=== PATIENT | male | born 1960 | race Caucasian/White ===

== ENCOUNTER 2023-01-18 16:28 | Inpatient (IN) | payer MEDICARE, MEDICAID, SELFPAY ==
--- NOTE | ~2023-01-18 | US_ITS ---
Testicular ultrasound with doppler. Indication: Edema, pain. Technique: Real-time sonography the scrotum was performed. Color flow Doppler and Doppler spectral an alysis were performed. Findings: The testes are homogeneous in echotexture bilaterally. There is no evidence of an intrates ticular mass. The right testis measures 4.2 x 4.3 x 2.7 cm and the left 3.2 x 4.0 x 2.2 cm. There is color-flow seen to both testes. Arterial and venous spectral waveforms are seen in both testes. There is no sonographic evidence of torsion. There is probable hypervascularity of the right epididymis as compared to the left. Small right hydrocele present. Mild diffuse scrotal wall edema present. Impression: Possible right epididymitis. Mild diffuse scrotal wall edema, nonspecific. Small right hydrocele. No testicular mass or torsion. Reviewed, dictated and finalized at [facility]. Impression: Possible right epididymitis. Mild diffuse scrotal wall edema, nonspecific. Small right hydrocele. No testicular mass or torsion.
--- NOTE | 2023-01-18 16:53 | ADMGEN ---
This patient, Sebastian Carrillo, was admitted to Medical Room 251-01. Patient/family oriented to hospital policies and general routines including ID bracelet, bed and alarms, visiting hours, pain management, procedures, bathroom and other care routines, personal items, smoking policy, room service/diet, and visiting hours. Information on how to activate the Rapid Response Team has been discussed. Patient/Family are encouraged to report perceived risks to care and to ask questions if they do not understand what they are told or what they should do.
[2023-01-18 16:57] VITALS: BP 127/76; PULSE 102; RESP 16; TEMP 36.5; O2SAT 97
--- NOTE | 2023-01-18 18:02 | PM.IMHP ---
H&P: HPI History of Present Illness Date/Time: 01/18/23 18:02 Chief Complaint: Scrotal pain Narrative: This is a 62-year-old male patient who presented to [facility] with evaluation of right growing, lower abdominal and testicular pain that occurred since this past Wednesday. The patient had been lifting a writing more onto a trailer was some force when he noticed that he had pain in his scrotum. The patient stated that he had lifted this lot more many times and never had any problems. The patient had been putting ice on it and heat without much relief. He stated that the right testicle became engorged and firm. The patient does have a history of a PE and DVTs with an IVC filter. He has a history of osler- Wood - rendu, he sees Dr. Del Valle for this. 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 He had and testicular ultrasound agreed for hospice it was read as a small simple hydroceles are present bilaterally. He had a CT abdomen and pelvis finding suggest orchitis and or cellulitis involving the right testis is and scrotum there is no evidence of hernia. He was seen by Dr. Dwyer in [facility]. His lactic acid was 0.7. His white count was noted to be 14.31 H&H is 11.2 and 34.7. Protime 15.1 urinalysis was negative. Patient's EKG at [facility] was read as atrial fibrillation. With controlled rate. He has no prior history of atrial fibrillation. His nurse consultant is Dr. Reed at [facility]. The patient was started on Levaquin agree the hospital he was given Isovue, and morphine. CT of the abdomen and pelvis was performed and the disc is on the front of the chart. The patient is a direct admit from [facility] he is being admitted to observation status on the date of service of 01/18/2023. Review of Systems Review of Systems: All systems reviewed & are unremarkable except as noted in HPI and below Constitutional: Constitutional: Reports as per HPI and Reports no additional constitutional complaints Eyes: Eyes: Reports as per HPI and Reports no additional eye complaints ENT: Reports system reviewed and no additional complaints, except as documented and Reports Normal hearing present Cardiovascular: Cardiovascular: Reports no additional cardiovascular complaints Respiratory: Respiratory: Reports no additional respiratory complaints and Reports no additional respiratory complaints Gastrointestinal: Gastrointestinal: Reports as per HPI and Reports no additional gastrointestinal complaints Musculoskeletal: Musculoskeletal: Reports no additional musculoskeletal complaints Integumentary/Breasts: Skin/Breast: Reports system reviewed and no additional complaints, except as docu and Reports as per HPI Neurologic: Reports system reviewed and no additional complaints, except as documented, Reports as per HPI and Reports Normal hearing present Psychiatric: Psychiatric: Reports no additional psychiatric complaints and Reports as per HPI Endocrine: Endocrine: Reports no additional endocrine complaints Hematologic/Lymphatic: Hematologic/Lymphatic: Reports no additional hematologic/lymphatic complaints Allergic/Immunologic: Allergic/Immunologic: Reports no additional allergic/immunologic complaints [facility] Past Medical History Medical History (Updated 01/18/23 @ 18:32 by Trinity Adames NP) Anemia Anxiety disorder Aortic aneurysm BPH (benign prostatic hyperplasia) CAD (coronary artery disease) Chronic abdominal pain Chronic cystitis with hematuria Chronic GERD COPD (chronic obstructive pulmonary disease) DVT (deep venous thrombosis) Hereditary hemorrhagic telangiectasia History of blood transfusion History of pulmonary embolism Hyperlipidemia Hypertension Migraine Pulmonary artery hypertension Surgical History Surgical History (Updated 01/18/23 @ 18:32 by Trinity Adames NP) H/O colonoscopy H/O of nasal cauterization H/O sinus surgery X3 History of cardiac catheterizatio
[2023-01-18 18:05] VITALS: BMI 21.7
[2023-01-18 19:28] LABS: Estimated CRCL calculation 78 ml/min; Estimated Glomerular Filt Rate > 60
[2023-01-18] MEDS: ceFAZolin 1 GM/NS 50 ML 1 GM/50 ML BAG IVPB (19:36)
[2023-01-18 19:42] LABS: Appearance Urine Clear (Clear); Bacteria Urine None Seen /hpf; Bilirubin Urine Negative (Negative); Blood Urine Negative (Negative); Color Urine Yellow (Yellow); Glucose Urine UA Negative (Negative); Ketones Urine Negative (Negative); Leukocyte Esterase Ur Trace LEU/UL (Negative); Nitrate Urine Negative (Negative); Non Pathogenic Casts 0-2; Protein Urine Negative (Negative); RBC Urine 0-2 /hpf (0-2); Squamous Epithelial Cell Urine None seen /hpf (Few)
[2023-01-18 19:47] LABS: Add Urine Microscopic? YES; Specific Grav Ur 1.055 (1.001-1.035)
[2023-01-18 20:00] VITALS: BP 121/80; PULSE 105; PULSE 93; RESP 18; TEMP 36.4; O2SAT 99
[2023-01-18] MEDS: GABAPENTIN 300 MG CAPSULE 600 MG PO (20:13)
[2023-01-18] MEDS: LACTULOSE 20 GM/30 ML UDC 15 GM PO (20:14)
[2023-01-18] MEDS: PANTOPRAZOLE SODIUM IV 40 MG VIAL IV PUSH (20:14)
[2023-01-18] MEDS: MORPHINE SULFATE (*CRX) 60 MG TABCR PO (20:57)
[2023-01-18 23:17] VITALS: BP 108/76; PULSE 93; RESP 17; TEMP 37; O2SAT 95
[2023-01-19] VITALS (24 sets, daily range): BP systolic 93–114; BP diastolic 61–80; PULSE 84–152; RESP 16–20; TEMP 36.9–38.4; O2SAT 92–98
--- NOTE | 2023-01-19 | ECHO_ITS ---
Patient Info Name: Sebastian Carrillo Age: 62 years : 1960 Gender: Male Ht: 72 in Wt: 160 lbs BSA: 1.92 m2 HR: 97 bpm BP: 114 / 77 mmHg Heart Rhythm: Atrial Fibrillation Exam Date: 01/19/2023 12:31 PM Exam Location: [facility] Pulmonary Patient Status: Outpatient Admit Date: 01/18/2023 Staff Ordering Physician: Trinity Adames NP Passenger Vessel Chef: Ernesto Mcduffie RDCS, RT Attending Provider: Kimberly Esquivel MD Referring Physician: Zacarias BARKLEY; Exam Type: CA echo doppler color flow Study Info Indications I48.1 - Persistent atrial fibrillation Complete two-dimensional, color flow and Doppler transthoracic echocardiogram is performed. Strain analysis performed. Summary 1. Complete two-dimensional, color flow and Doppler transthoracic echocardiogram is performed. 2. Left ventricular chamber dimension is normal. 3. Left ventricular systolic function is normal, estimated at 50-55%. 4. There is mildly increased left ventricular wall thickness. 5. Right ventricular systolic function is normal. 6. Left atrial chamber dimension is mildly enlarged. 7. Right atrial chamber dimension is mildly enlarged. 8. There is mild mitral valve regurgitation. 9. There is mild tricuspid valve regurgitation. Left Ventricle Left ventricular chamber dimension is normal. Left ventricular systolic function is normal, estimated at 50-55%. There is mildly increased left ventricular wall thickness. Global longitudinal strain is abnormal at -13 %. Right Ventricle Right ventricular chamber dimension is normal. Right ventricular systolic function is normal. Left Atria Left atrial chamber dimension is mildly enlarged. Right Atria Right atrial chamber dimension is mildly enlarged. Atrial Septum Intact interatrial septum visualized by color flow imaging. Aortic Valve The aortic valve is not well visualized. There is no aortic valve stenosis. There is no aortic valve regurgitation. Pulmonic Valve The pulmonic valve is not well visualized. Mitral Valve There is mild mitral valve regurgitation. Tricuspid Valve There is mild tricuspid valve regurgitation. Pericardium/Pleural There is no pericardial effusion. Inferior Vena Cava Dilated inferior vena cava with <50% collapse upon inspiration consistent with elevated right atrial pressure, 15 mmHg. Aorta The aortic root size at the sinus of Valsalva is normal. Left Ventricular Outflow Tract Name Value Normal LVOT 2D LVOT Diameter 2.1 cm LVOT Doppler LVOT Peak Gradient 4 mmHg LVOT Mean Gradient 2 mmHg LVOT VTI 16 cm LVOT VTI/AV VTI Ratio 0.9 LVOT Stroke Volume 55 ml LVOT CO 5.5 l/min LVOT CI 2.9 l/min/m2 Mitral Valve Name Value Normal MV Doppler ---
[2023-01-19] MEDS: ceFAZolin 1 GM/NS 50 ML 1 GM/50 ML BAG IVPB ×2 (02:03→11:37)
[2023-01-19] MEDS: MORPHINE SULFATE (*CRX) 60 MG TABCR PO ×3 (05:25→21:37)
[2023-01-19 05:29] LABS: Basophils Percent Auto 0.4 % (0.2-1.2); Eosinophils Percent Auto 0.3 % (0-4.4); Hemoglobin 9.7 g/dL (14.0-18.0); Immature Granulocyte Absolute 0.03 K/mm3 (0.00-0.031); Immature Granulocyte Percent A 0.4 % (0-0.5); Lymphocytes Percent Auto 12.9 % (18.3-44.2); Mean Corpuscular HGB Conc 33.4 g/dl (32-36); Mean Corpuscular Hemoglobin 30.9 pg (26-34); Mean Corpuscular Volume 92.4 fl (80-100); Mean Platelet Volume 9.6 fl (7.4-10.4); Monocytes Absolute Auto 0.7 K/mm3 (0.1-0.6); Monocytes Percent Auto 10.3 % (2.6-8.5); Neutrophils Absolute Auto 5.3 K/mm3 (1.3-6.7); Neutrophils Percent Auto 75.7 % (45.5-73.1); Platelet Count Result 183 k/mm3 (150-375); Red Blood Count 3.14 M/mm3 (4.6-6.20); Red Cell Distribution Width 14.5 % (11.5-14.5)
[2023-01-19 05:33] LABS: Lactic Acid Reflex 0.6 mmol/L (0.7-2.0)
[2023-01-19 05:35] LABS: Alanine Aminotransferase 13 U/L (6-50); Albumin Level 3.3 g/dL (3.5-5.1); Alkaline Phosphatase 84 U/L (38-126); Anion Gap 3 mmol/L (8-16); Aspartate Amino Transferase 23 U/L (17-59); Bilirubin,Total 0.7 mg/dL (0.2-1.3); Blood Urea Nitrogen 9 mg/dL (9-20); Calcium 8.3 mg/dL (8.4-10.2); Carbon Dioxide 30 mmol/L (22-30); Chloride 97 mmol/L (98-107); Estimated CRCL calculation 78 ml/min; Estimated Glomerular Filt Rate > 60; Glucose 109 mg/dL (65-110); Lactate Dehydrogenase 126 U/L (120-246); Magnesium 1.7 mg/dL (1.6-2.3); Potassium 3.8 mmol/L (3.4-5.0); Sodium 130 mmol/L (137-145)
[2023-01-19] MEDS: METOPROLOL TARTRATE 25 MG TABLET PO (07:34)
[2023-01-19] MEDS: TAMSULOSIN HCL 0.4 MG CAPSULE PO (07:37)
[2023-01-19] MEDS: PARoxetine 20 MG TABLET PO (07:37)
[2023-01-19] MEDS: FINASTERIDE 5 MG TABLET PO (07:38)
[2023-01-19] MEDS: ATORVASTATIN 20 MG TABLET PO (07:38)
[2023-01-19] MEDS: FERROUS GLUCONATE 324 MG TABLET PO (07:38)
[2023-01-19] MEDS: ISOSORBIDE MONONITRATE 60 MG TAB.ER.24H PO (07:38)
[2023-01-19] MEDS: PANTOPRAZOLE SODIUM IV 40 MG VIAL IV PUSH ×2 (07:39→20:29)
[2023-01-19] MEDS: MAGNESIUM SULF 2 GM/WATER 50ML 2 GM/50 ML BAG IVPB (07:49)
[2023-01-19] MEDS: HYDROmorphone HCL INJ (*CRX) 1 MG/ML SYR 0.5 MG IV PUSH (07:57)
[2023-01-19] MEDS: LEVALBUTEROL NEB 1.25 MG/3 ML 0.63 MG INHALATION ×3 (08:54→19:20)
--- NOTE | 2023-01-19 09:37 | ECG_ITS ---
Measurements Intervals [place] Rate: 91 P: KS: 0 QRS: 66 QRSD: 81 T: 33 QT: 336 QTc: 414 Interpretive Statements ATRIAL FIBRILLATION NONSPECIFIC T-WAVE ABNORMALITY ABNORMAL RHYTHM ECG NO PREVIOUS ECG AVAILABLE FOR COMPARISON Electronically Signed On 01-19-2023 18:00:01 CDT by Jin Dwyer M.D.
--- NOTE | 2023-01-19 12:47 | PM.CNCAR ---
Assessment and Plan Assessment and plan (1) Atrial fibrillation: Code(s): I48.91 - Unspecified atrial fibrillation Status: Acute Assessment and Plan: New diagnosis for the patient. Overall, rate controlled for the most part, occasional RVR. Will increase dose of beta bi to optimize rate control. [id number] of 2. Has not been started on therapeutic anticoagulation due to bleeding issues with his HHT, which I agree with. Recommend outpatient follow up with his Block Trader. (2) CAD (coronary artery disease): Code(s): I25.10 - Atherosclerotic heart disease of [place] coronary artery without angina pectoris Status: Acute Assessment and Plan: Stable. Continue with his home regimen. 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 Has not been started on therapeutic anticoagulation for stroke prophylaxis for atrial fibrillation due to bleeding issues with his HHT, which I agree with. Hematology has been consulted. History of Present Illness History of Present Illness Consult date/time: 01/19/23 12:47 Requesting physician: Trinity Adames NP Consult reason: atrial fibrillation Reason For Visit: Scrotal Cellulitis Narrative: We are consulted for atrial fibrillation. This is a 62-year-old male with a history of coronary artery disease, history of DVT/PE, COPD, hereditary hemorrhagic telangiectasia, hypertension, hyperlipidemia who presented with right groin, lower abdominal and testicular pain. Initially presented to [facility] and then transferred over here. CT showed possible orchitis and or cellulitis involving the right testis. Noted to be in atrial fibrillation at [place]. Scrotal ultrasound here shows possible right epididymitis and mild diffuse scrotal wall edema. Patient states he has not had a diagnosis of atrial fibrillation before. He is currently without any cardiac symptoms. Sees [facility] Cardiology at [place]. Review of Systems Review of Systems: All systems reviewed & are unremarkable except as noted in HPI and below (HPI) [facility] Past Medical History Medical History Anemia Anxiety disorder Aortic aneurysm BPH (benign prostatic hyperplasia) CAD (coronary artery disease) Chronic abdominal pain Chronic cystitis with hematuria Chronic GERD COPD (chronic obstructive pulmonary disease) DVT (deep venous thrombosis) Hereditary hemorrhagic telangiectasia History of blood transfusion History of pulmonary embolism Hyperlipidemia Hypertension Migraine Pulmonary artery hypertension Surgical History Surgical History H/O colonoscopy H/O of nasal cauterization H/O sinus surgery X3 History of cardiac catheterization X4 S/P IVC filter Family History Family History Mother Cancer Son Hereditary hemorrhagic telangiectasia Social History Social History Social History: The patient continues to smoke a half a pack a cigarettes a day. 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 Between him and his they have 7 children of which 3 are biological to him. Code status full code Smoking packs per day: 0.5 Smoking cigarettes per day: 10.0 Smoking status: Current every day smoker Tobacco type: cigarettes Alcohol intake: never Substance use: current Substance use type: marijuana and other Other substance usage details: Medical cannabis Lack of Transportation: No Lack of Food: Never True Current Housing: I Have Housing Concerned About Future Housing: No Difficulty Paying Gas/Electr
--- NOTE | 2023-01-19 12:48 | PDONCCN ---
HPI - Date of Consult Date/Time: 01/19/23 12:48 Requesting Physician: Kimberly Esquivel MD Primary Care Provider: UNKNOWN,DOCTOR - Consult Narrative Reason for consult: Hereditary hemorrhagic telangiectasia Narrative: Sebastian Carrillo is a 62 year old male with history of hemorrhagic telangiectasia managed by along with history of coronary artery disease, GERD, COPD, history of DVT status post IVC filter placement came into the hospital with lower abdominal and testicular pain started after lifting riding lawnmower into the trailer. CT abdomen showed finding of orchitis and cellulitis involving the right testis with no evidence of hernia. 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 He is currently not on any blood thinner. He is take 1 iron 325 mg once a day for recurrent AVM. His last colonoscopy was done by Dr. Trujillo was more than 5 years ago. He denies any melena hematochezia. He denies any chest pain and shortness of breath. Labs showed hemoglobin of 9.7. Scrotal ultrasound was performed that showed possible right epididymitis and small right hydrocele with no testicular mass or torsion. Review of Systems - Review of Systems All systems reviewed & are unremarkable except as noted in HPI and bel - Neurologic Reports system reviewed and no additional complaints, except as documented, Reports hearing normal [facility] Medical History: Medical History (Last Updated 01/18/23 @ 18:32 by Trinity Adames NP) Anemia Anxiety disorder Aortic aneurysm BPH (benign prostatic hyperplasia) CAD (coronary artery disease) Chronic abdominal pain Chronic cystitis with hematuria Chronic GERD COPD (chronic obstructive pulmonary disease) DVT (deep venous thrombosis) Hereditary hemorrhagic telangiectasia History of blood transfusion History of pulmonary embolism Hyperlipidemia Hypertension Migraine Pulmonary artery hypertension Surgical History: Surgical History (Last Updated 01/18/23 @ 18:32 by Trinity Adames NP) H/O colonoscopy H/O of nasal cauterization H/O sinus surgery X3 History of cardiac catheterization X4 S/P IVC filter Family History: Family History (Last Updated 01/18/23 @ 18:34 by Trinity Adames NP) Mother Cancer Son Hereditary hemorrhagic telangiectasia - Social History Social History: Social History (Last Updated 01/18/23 @ 18:35 by Trinity A. Benhoff, ROOF TRUSS MACHINE TENDER) Alcohol Use: Alcohol intake: never Substance Use: Substance use: current Substance use type: marijuana Substance use type: other Other substance usage details: Medical cannabis Others: Spiritual care concerns: No Smoking Status: Smoking status: Current every day smoker Tobacco type: cigarettes Smoking Pack-years: Smoking packs per day: 0.5 Smoking cigarettes per day: 10.0 Social Determinants of Health: Has the Lack of Transportation Kept You From Medical Appointments or From Getting Medications?: No Within the Past 12 Months, Were You Worried Whether Your Food Would Run Out Before You Got Money to Buy More?: Never True What is Your Housing Situation Today?: I Have Housing Are You Worried That in the Next 2 Months, You May Not Have Your Own Housing to Live In?: No Do You Have Trouble Paying Your Heating Or Electricity Bill?: No Do You Have Trouble Paying For Medicines?: No Are You Currently Unemployed and Looking for Work?: No Highest Level of Education Completed: Don't Know Do You Have Trouble With Childcare or the Care of a Family Member?: No Exam - Vital Signs Vital Signs - 24 hr 01/18/23 16:57 01/18/23 18:38 01/18/23 20:00 Temperature 36.5 C 36.4 C Pulse Rate 102 H 93 Respiratory Rate 16 18 Blood Pressure 127/76 121/80 Pulse Oximetry 97 99 Oxygen Delivery Room Air 01/18/23 20:00 01/18/23 23:17 01/18/23 20:00 Temperature 37.0 C Pulse Rate 93 105 H
--- NOTE | 2023-01-19 12:49 | PM.IMPN ---
Progress Note: A&P Assessment and Plan (1) Epididymitis: Code(s): N45.1 - Epididymitis Status: Acute Assessment and Plan: Patient noticed swelling of his scrotum on on 01/15/2023 and he developed pain in the scrotum the next day. He was a direct admit from [facility]. CT abdomen and pelvis finding suggest orchitis and or cellulitis involving the right testis is and scrotum there is no evidence of hernia. Cellulitis of the right scrotum Urology has been consulted Given Levaquin at [facility] Discussed case with ID pharmacist and he recommended to ceftriaxone and vancomycin. Can possibly deescalate antibiotics after seen by Urology. ID pharmacist believes vancomycin can be dropped off of medication list soon. Blood cultures are pending White blood cell count at [facility] was 14 but his white count here is within normal range. (2) Atrial fibrillation: Code(s): I48.91 - Unspecified atrial fibrillation Status: Acute Assessment and Plan: This is a new onset and he is rate controlled. No anticoagulation is ordered due to his hereditary hemorrhagic telangiectasia He is on metoprolol echo was ordered. Being monitor on telemetry (3) COPD (chronic obstructive pulmonary disease): Code(s): J44.9 - Chronic obstructive pulmonary disease, unspecified Status: Acute Assessment and Plan: Xopenex. The patient has albuterol at home but there is currently a shortage. He was encouraged to stop smoking. He was given smoking cessation information. Not in active exacerbation (4) Anemia: Code(s): D64.9 - Anemia, unspecified Status: Acute Assessment and Plan: The patient had a CT of the abdomen and pelvis at [facility]. The patient does have a somewhat mottled appearance which is unchanged from previous and consistent with patient's history of hereditary hemorrhagic telangiectasia. Alternatively orchitis and cellulitis could yield in appearance such as this. Continue to monitor H&H. Continue with ferrous sulfate Oncology consulted b12 was low at 289. Started on supplementation. (5) CAD (coronary artery disease): Code(s): I25.10 - Atherosclerotic heart disease of [place] coronary artery without angina pectoris Status: Acute Assessment and Plan: The patient stated that he has had 4 cardiac caths but has not had any stents. Continue with atorvastatin, isosorbide, metoprolol The patient has a history of DVT and PE and has an IVC filter. (6) Aortic aneurysm: Code(s): I71.9 - Aortic aneurysm of unspecified site, without rupture Status: Acute Assessment and Plan: The patient has a thoracic surgeon who is monitoring this outpatient. Patient states his aneurysm is 4.2 cm (7) Hereditary hemorrhagic telangiectasia: Code(s): I78.0 - Hereditary hemorrhagic telangiectasia Status: Acute Assessment and Plan: And patient sees Dr. fried and he has been consulted. (8) Chronic abdominal pain: Code(s): R10.9 - Unspecified abdominal pain; G89.29 - Other chronic pain Status: Acute Assessment and Plan: Continue with routine morphine and p.r.n. Dilaudid. The patient takes hydromorphone at home but no interval is noted. I then ordered p.r.n. Dilaudid here. (9) Hypertension: Code(s): I10 - Essential (primary) hypertension Status: Acute Assessment and Plan: Continue with metoprolol (10) Pulmonary artery hypertension: Code(s): I27.21 - Secondary pulmonary arterial hypertension Status: Acute Assessment and Plan: echo is being ordered Subjective Date/time seen: 01/19/23 12:49 Interval history: Patient sitting comfortably in bed. Patient's scrotal pain has improved slightly since arrival to [place]. He states that the swelling is starting to decrease. Gracie
[2023-01-19 13:32] LABS: Iron 11 ug/dL (49-181)
[2023-01-19 13:42] LABS: Percent Iron Saturation 4 % (20-50)
[2023-01-19 14:40] LABS: Folic Acid 18.2 ng/mL (2.76->20)
--- NOTE | 2023-01-19 15:38 | WPDURCON ---
Assessment and Plan Assessment and plan (1) BPH (benign prostatic hyperplasia): Code(s): N40.0 - Benign prostatic hyperplasia without lower urinary tract symptoms Status: Acute (2) Epididymitis, right: Code(s): N45.1 - Epididymitis Status: Acute Assessment and Plan: Continue IV antibiotics. Apply scrotal Support. Apply Ice to affected area in 20 minute intervals. Patient to f/u with Urology in 3-4 weeks. He understands this will take weeks to resolve. Ok to take NSAIDS. Urology Consult Note HPI Date Seen: 01/19/23 Time Seen: 11:00 Requesting Physician: Kimberly Esquivel MD Primary Care Provider: UNKNOWN,DOCTOR Consult Narrative Reason for consult: right scrotal edema/pain Narrative: Sebastian Carrillo is a 62 year old male who presented to [facility] ER initially on 01/18 and was evaluated for acute onset and worsening of right sided scrotal pain and edema that radiated to the RLQ. He denies fever, dysuria, frequency, urgency or bruising of the scrotum. 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 He didn't injure himself. He had a CT scan at [place] and an US today of the scrotum which shows Possible right epididymitis. Mild diffuse scrotal wall edema, nonspecific.Small right hydrocele.No testicular mass or torsion. WBC is 7.0, creatinine is 0.90, UA is negative although urine and blood cultures are pending. WBC was 14.31 at [facility] yesterday. He states the pain is improved today and swelling as well. Review of Systems Cardiovascular: Cardiovascular: Denies chest pain Respiratory: Respiratory: Reports no additional respiratory complaints Gastrointestinal: Gastrointestinal: Denies abdominal pain Genitourinary: Genitourinary: Denies hematuria, Reports genital pain, Denies dysuria, Denies flank pain, Reports scrotal swelling, Denies urinary frequency, Denies urinary hesitancy, Denies urinary incontinence and Denies urinary urgency [facility] Past Medical History Medical History Anemia Anxiety disorder Aortic aneurysm BPH (benign prostatic hyperplasia) CAD (coronary artery disease) Chronic abdominal pain Chronic cystitis with hematuria Chronic GERD COPD (chronic obstructive pulmonary disease) DVT (deep venous thrombosis) Hereditary hemorrhagic telangiectasia History of blood transfusion History of pulmonary embolism Hyperlipidemia Hypertension Migraine Pulmonary artery hypertension Surgical History Surgical History H/O colonoscopy H/O of nasal cauterization H/O sinus surgery X3 History of cardiac catheterization X4 S/P IVC filter Family History Family History Mother Cancer Son Hereditary hemorrhagic telangiectasia Social History Social History Social History: The patient continues to smoke a half a pack a cigarettes a day. 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 Between him and his they have 7 children of which 3 are biological to him. Code status full code Smoking packs per day: 0.5 Smoking cigarettes per day: 10.0 Smoking status: Current every day smoker Tobacco type: cigarettes Alcohol intake: never Substance use: current Substance use type: marijuana and other Other substance usage details: Medical cannabis Lack of Transportation: No Lack of Food: Never True Current Housing: I Have Housing Concerned About Future Housing: No Difficulty Paying Gas/Electric Bills: No Difficulty Paying for Meds: No Currently Unemployed: No Education: Don't Know Difficulty w/ Childcare or Family Care: No Spiritual
[2023-01-19] MEDS: METOPROLOL TARTRATE 50 MG TAB PO (20:12)
[2023-01-19] MEDS: ACETAMINOPHEN 500 MG TABLET 1000 MG PO (20:25)
[2023-01-19] MEDS: GABAPENTIN 300 MG CAPSULE 600 MG PO (20:28)
[2023-01-19] MEDS: FLUTICASONE PROPIONATE 0.05% NA SPR 16 GM BTL (*BKC) 1 SPRAY NASAL (20:28)
[2023-01-20] VITALS (14 sets, daily range): BP systolic 90–122; BP diastolic 54–88; PULSE 77–110; RESP 16–18; TEMP 36.4–36.9; O2SAT 93–97
[2023-01-20 05:38] LABS: Alanine Aminotransferase 14 U/L (6-50); Albumin Level 3.3 g/dL (3.5-5.1); Alkaline Phosphatase 84 U/L (38-126); Anion Gap 2 mmol/L (8-16); Aspartate Amino Transferase 23 U/L (17-59); Bilirubin,Total 0.5 mg/dL (0.2-1.3); Blood Urea Nitrogen 8 mg/dL (9-20); Calcium 8.6 mg/dL (8.4-10.2); Carbon Dioxide 34 mmol/L (22-30); Chloride 100 mmol/L (98-107); Estimated CRCL calculation 78 ml/min; Estimated Glomerular Filt Rate > 60; Glucose 117 mg/dL (65-110); Potassium 4.1 mmol/L (3.4-5.0); Sodium 136 mmol/L (137-145)
[2023-01-20 05:43] LABS: Basophils Percent Auto 0.5 % (0.2-1.2); Eosinophils Percent Auto 0.8 % (0-4.4); Hematocrit 30.9 % (42.0-52.0); Hemoglobin 10.2 g/dL (14.0-18.0); Immature Granulocyte Absolute 0.02 K/mm3 (0.00-0.031); Immature Granulocyte Percent A 0.5 % (0-0.5); Lymphocytes Percent Auto 15.6 % (18.3-44.2); Mean Corpuscular Hemoglobin 30.7 pg (26-34); Mean Corpuscular Volume 93.1 fl (80-100); Mean Platelet Volume 10.1 fl (7.4-10.4); Monocytes Absolute Auto 0.4 K/mm3 (0.1-0.6); Monocytes Percent Auto 10.9 % (2.6-8.5); Neutrophils Absolute Auto 2.8 K/mm3 (1.3-6.7); Neutrophils Percent Auto 71.7 % (45.5-73.1); Platelet Count Result 203 k/mm3 (150-375); Red Blood Count 3.32 M/mm3 (4.6-6.20); Red Cell Distribution Width 14.3 % (11.5-14.5); White Blood Count 3.9 K/mm3 (4.5-10.0)
[2023-01-20] MEDS: MORPHINE SULFATE (*CRX) 60 MG TABCR PO ×2 (06:11→14:23)
[2023-01-20] MEDS: LEVALBUTEROL NEB 1.25 MG/3 ML 0.63 MG INHALATION ×2 (08:03→13:37)
[2023-01-20] MEDS: HYDROmorphone HCL INJ (*CRX) 1 MG/ML SYR 0.5 MG IV PUSH (08:27)
[2023-01-20] MEDS: PANTOPRAZOLE SODIUM IV 40 MG VIAL IV PUSH (08:28)
[2023-01-20] MEDS: ISOSORBIDE MONONITRATE 60 MG TAB.ER.24H PO (08:28)
[2023-01-20] MEDS: TAMSULOSIN HCL 0.4 MG CAPSULE PO (08:28)
[2023-01-20] MEDS: FERROUS GLUCONATE 324 MG TABLET PO (08:28)
[2023-01-20] MEDS: METOPROLOL TARTRATE 50 MG TAB PO (08:28)
[2023-01-20] MEDS: ATORVASTATIN 20 MG TABLET PO (08:28)
[2023-01-20] MEDS: PARoxetine 20 MG TABLET PO (08:28)
[2023-01-20] MEDS: FINASTERIDE 5 MG TABLET PO (08:28)
[2023-01-20] MEDS: FLUTICASONE PROPIONATE 0.05% NA SPR 16 GM BTL (*BKC) 1 SPRAY NASAL (08:29)
[2023-01-20] MEDS: CYANOCOBALAMIN 1,000 MCG TABLET 1000 MCG PO (08:33)
--- NOTE | 2023-01-20 12:43 | PM.PNCARD ---
Progress Note: A&P Assessment and Plan (1) Atrial fibrillation with RVR: Code(s): I48.91 - Unspecified atrial fibrillation Status: Acute Assessment and Plan: New diagnosis for the patient. Overall, rate controlled for the most part, occasional RVR. Will increase dose of beta bi to optimize rate control. Metoprolol now increased to 100mg BID. [id number] of 2. Has not been started on therapeutic anticoagulation due to bleeding issues with his HHT, which I agree with. Echocardiogram this admission shows LVEF 50-55%, no significant valvular disease. Recommend outpatient follow up with his [facility]. (2) CAD (coronary artery disease): Code(s): I25.10 - Atherosclerotic heart disease of [place] coronary artery without angina pectoris Status: Acute Assessment and Plan: Stable. Continue with his home regimen. 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 Has not been started on therapeutic anticoagulation for stroke prophylaxis for atrial fibrillation due to bleeding issues with his HHT, which I agree with. Hematology has been consulted. Subjective Date/time seen: 01/20/23 12:43 Interval history: Reason for visit: Atrial fibrillation with RVR HPI: This is a 62-year-old male with a history of coronary artery disease, history of DVT/PE, COPD, hereditary hemorrhagic telangiectasia, hypertension, hyperlipidemia who presented with right groin, lower abdominal and testicular pain. Initially presented to [facility] and then transferred over here. CT showed possible orchitis and or cellulitis involving the right testis. Noted to be in atrial fibrillation at [place]. Scrotal ultrasound here shows possible right epididymitis and mild diffuse scrotal wall edema. Patient states he has not had a diagnosis of atrial fibrillation before. He is currently without any cardiac symptoms. Sees [facility] Cardiology at [place]. Date of service 01/20: Had some RVR overnight when febrile. No symptoms at that time. Heart rate overall has been controlled. Feeling well this morning. No cardiac symptoms. Review of Systems Review of Systems: All systems reviewed & are unremarkable except as noted in HPI and below (HPI) Exam Const: General: comfortable and no acute distress HENMT: Mouth: Yes moist mucous membranes Eyes: General: appearance normal, both eyes and all related structures Sclera: sclerae normal Neck: Neck: supple Resp: Effort & Inspection: normal respiratory effort Auscultation: clear to auscultation bilaterally Cardio: Rhythm: abnormal rhythm irregularly irregular GI: GI Palp: Yes Soft to palpation and No Tenderness to palpation present (GI) Skin: General skin exam: normal color Neuro: Speech: normal speech Extrem: General: normal to inspection Psych: Mental Status: mental status grossly normal Affect: normal affect Objective Data Vital Signs Vital Signs: Vital Signs - 24 hr 01/19/23 13:35 01/19/23 13:42 01/19/23 14:32 Temperature 37.2 C Pulse Rate 99 98 84 Respiratory Rate 20 18 Blood Pressure 114/71 Pulse Oximetry 97 Oxygen Delivery 01/19/23 18:00 01/19/23 16:00 01/19/23 19:21 Temperature 36.9 C Pulse Rate 90 97 95 Respiratory Rate 18 18 Blood Pressure 110/80 Pulse Oximetry 98 Oxygen Delivery 01/19/23 19:48 01/19/23 20:09 01/19/23 20:12 Temperature 38.4 C H Pulse Rate 92 152 H 146 H Respiratory Rate 18 16 Blood Pressure 107/67 Pulse Oximetry 94 Oxygen Delivery 01/19/23 20:21 01/19/23 20:25 01/19/23 22:04 Temperature 38.4 C H 38.4 C H 37.2 C Pulse Rate 152 H Respiratory Rate 16 16 Blood Pressure 107/67 93/61 L Pulse Oximetry 94 97 Oxygen Delivery Room Air 01/19/23 21:25 01/20/23 01:17 01/19/23 20:00 Temperature 37.2 C 36.8 C Pulse Rate 100
--- NOTE | 2023-01-20 16:42 | P.DS_ITS ---
DS: Admitting Diagnosis Discharge Date 01/20/2023 Admitting Diagnosis Epididymitis atrial fibrillation Chronic obstructive pulmonary disease, unspecified Gastro-esophageal reflux disease without esophagitis Anemia, unspecified Atherosclerotic heart disease of [place] coronary artery without angina pectoris Aortic aneurysm of unspecified site, without rupture Hereditary hemorrhagic telangiectasia Migraine, unspecified, not intractable, without status migrainosus Hyperlipidemia Anxiety disorder Chronic abdominal pain Essential (primary) hypertension Pulmonary artery hypertension DS: Discharge Diagnosis Discharge Diagnosis (1) Epididymitis: Code(s): N45.1 - Epididymitis Status: Acute Assessment and Plan: Patient noticed swelling of his scrotum on on 01/15/2023 and developed pain in the scrotum the next day. He was a direct admit from [facility]. * CT abdomen and pelvis finding suggest orchitis and or cellulitis involving the right testis is and scrotum there is no evidence of hernia. * Urology consulted * Given Levaquin IV at [facility] * Case discussed with ID pharmacist who recommended ceftriaxone and vancomycin 01/18-01/20/23. Levaquin avoided due to AAA. * Blood cultures negative x2 * Urine culture without growth * White blood cell count at [facility] was 14 but his white count on admission was within normal range. * Ice, scrotal support and PO analgesics. * Transitioned to bactrim DS 1 tab BID x 8 days to complete 10-day course. * Follow up with urology outpatient. (2) Atrial fibrillation: Code(s): I48.91 - Unspecified atrial fibrillation Status: Acute Assessment and Plan: new onset afib, rate controlled noted on telemetry. * No anticoagulation is ordered due to his hereditary hemorrhagic telangiectasia * metoprolol continued and dose increased to 100 mg BID * echo showed Left ventricular systolic function is normal, estimated at 50-55%, mildly increased left ventricular wall thickness, Left atrial chamber dimension is mildly enlarged, Right atrial chamber dimension is mildly enlarged, mild mitral valve regurgitation and mild tricuspid valve regurgitation. * Cardiology consulted for evaluation (3) COPD (chronic obstructive pulmonary disease): Code(s): J44.9 - Chronic obstructive pulmonary disease, unspecified Status: Chronic Assessment and Plan: Not in acute exacerbation. Continue PRN Xopenex. The patient has albuterol at home but there is currently a shortage. * He was encouraged to stop smoking. He was given smoking cessation information. (4) Anemia: Code(s): D64.9 - Anemia, unspecified Status: Chronic Assessment and Plan: The patient had a CT of the abdomen and pelvis at [facility]. The patient does have a somewhat mottled appearance which is unchanged from previous and consistent with patient's history of hereditary hemorrhagic telangiectasia. * Continue to monitor H&H. * Continued with ferrous sulfate. Iron panel low * Oncology consulted and recommended iv iron infusion or increasing oral supplement. This was discussed with the patient and he reported prior adverse effects with higher doses of iron replacement and did not want to pursue this at this time. He was instructed to follow up with his automation qtp tester/oncologist to discuss this further. * b12 was low at 289. Started on supplementation. (5) CAD (coronary artery disease): Code(s): I25.10 - Atherosclerotic heart disease of [place] coronary artery without angina
--- NOTE | 2023-01-20 16:42 | PM.DS ---
DS: Admitting Diagnosis Discharge Date 01/20/2023 Admitting Diagnosis Epididymitis atrial fibrillation Chronic obstructive pulmonary disease, unspecified Gastro-esophageal reflux disease without esophagitis Anemia, unspecified Atherosclerotic heart disease of [place] coronary artery without angina pectoris Aortic aneurysm of unspecified site, without rupture Hereditary hemorrhagic telangiectasia Migraine, unspecified, not intractable, without status migrainosus Hyperlipidemia Anxiety disorder Chronic abdominal pain Essential (primary) hypertension Pulmonary artery hypertension DS: Discharge Diagnosis Discharge Diagnosis (1) Epididymitis: Code(s): N45.1 - Epididymitis Status: Acute Assessment and Plan: Patient noticed swelling of his scrotum on on 01/15/2023 and developed pain in the scrotum the next day. He was a direct admit from [facility]. CT abdomen and pelvis finding suggest orchitis and or cellulitis involving the right testis is and scrotum there is no evidence of hernia. Urology consulted Given Levaquin IV at [facility] Case discussed with ID pharmacist who recommended ceftriaxone and vancomycin 01/18-01/20/23. Levaquin avoided due to AAA. Blood cultures negative x2 Urine culture without growth White blood cell count at [facility] was 14 but his white count on admission was within normal range. Ice, scrotal support and PO analgesics. Transitioned to bactrim DS 1 tab BID x 8 days to complete 10-day course. Follow up with urology outpatient. (2) Atrial fibrillation: Code(s): I48.91 - Unspecified atrial fibrillation Status: Acute Assessment and Plan: new onset afib, rate controlled noted on telemetry. No anticoagulation is ordered due to his hereditary hemorrhagic telangiectasia metoprolol continued and dose increased to 100 mg BID echo showed Left ventricular systolic function is normal, estimated at 50-55%, mildly increased left ventricular wall thickness, Left atrial chamber dimension is mildly enlarged, Right atrial chamber dimension is mildly enlarged, mild mitral valve regurgitation and mild tricuspid valve regurgitation. Cardiology consulted for evaluation (3) COPD (chronic obstructive pulmonary disease): Code(s): J44.9 - Chronic obstructive pulmonary disease, unspecified Status: Chronic Assessment and Plan: Not in acute exacerbation. Continue PRN Xopenex. The patient has albuterol at home but there is currently a shortage. He was encouraged to stop smoking. He was given smoking cessation information. (4) Anemia: Code(s): D64.9 - Anemia, unspecified Status: Chronic Assessment and Plan: The patient had a CT of the abdomen and pelvis at [facility]. The patient does have a somewhat mottled appearance which is unchanged from previous and consistent with patient's history of hereditary hemorrhagic telangiectasia. Continue to monitor H&H. Continued with ferrous sulfate. Iron panel low Oncology consulted and recommended iv iron infusion or increasing oral supplement. This was discussed with the patient and he reported prior adverse effects with higher doses of iron replacement and did not want to pursue this at this time. He was instructed to follow up with his director health/oncologist to discuss this further. b12 was low at 289. Started on supplementation. (5) CAD (coronary artery disease): Code(s): I25.10 - Atherosclerotic heart disease of [place] coronary artery without angina pectoris Status: Chronic Assessment and Plan: The patient stated that he has had 4 cardiac caths but has not had any stents. Continue with atorvastatin, isosorbide, metoprolol The patient has a history of DVT and PE and has an IVC filter. (6) Aortic aneurysm: Code(s): I71.9 - Aortic aneurysm of unspecified site, without rupture Status: Chronic Assessment
== END 2023-01-20 18:35 | disposition home or self-care (01) | DRG 728 ==
PROVIDERS: Internal Medicine Critical Care Medicine; Internal Medicine Hematology & Oncology; Nurse Practitioner; Admitting Provider Internal Medicine; Visit Provider Nurse Practitioner Family
DX: N45.1 Epididymitis (principal); N40.0 Benign prostatic hyperplasia without lower urinary tract symptoms; J44.9 Chronic obstructive pulmonary disease, unspecified; K21.9 Gastro-esophageal reflux disease without esophagitis; D64.9 Anemia, unspecified; I25.10 Atherosclerotic heart disease of native coronary artery without angina pectoris; E78.5 Hyperlipidemia, unspecified; F41.9 Anxiety disorder, unspecified; I10 Essential (primary) hypertension; I78.0 Hereditary hemorrhagic telangiectasia; I71.9 Aortic aneurysm of unspecified site, without rupture; I48.91 Unspecified atrial fibrillation; F17.210 Nicotine dependence, cigarettes, uncomplicated; G43.909 Migraine, unspecified, not intractable, without status migrainosus; R10.9 Unspecified abdominal pain; G89.29 Other chronic pain; I27.20 Pulmonary hypertension, unspecified; Z86.718 Personal history of other venous thrombosis and embolism; Z86.711 Personal history of pulmonary embolism
CPT/HCPCS: 36415; 76870; 80053; 81001; 82565; 82607; 82728; 82746; 83540; 83550; 83605; 83615; 83735; 84443; 85025; 87040; 87086; 93005; 93306; 93976; 94640; 96365; 96367; 96375; A9270; C9113; G0378; G0379; J0690; J0696; J1170; J3370; J3475

== ENCOUNTER 2024-10-30 10:16 | Outpatient (CLI) | payer MEDICARE, MEDICAID, SELFPAY ==
--- NOTE | 2024-10-30 10:30 | ECG_ITS ---
Test Date: 2024-10-30 10:53:39 Measurements Intervals [place] Rate: 70 P: 0 AL: 0 QRS: 30 QRSD: 85 T: 13 QT: 408 QTc: 442 Interpretive Statements ATRIAL FIBRILLATION POSSIBLE ANTERIOR MYOCARDIAL INFARCTION [30 ms Q WAVE IN V3/V4, OR R < 0.2 mV IN V4], OF INDETERMINATE AGE No previous ECG available for comparison Electronically Signed On 10-30-2024 13:41:10 DAY CARE ATTEND[employer] by Ines Jones M.D.
--- OUTSIDE RECORDS SUMMARY | 2024-10-30 11:24 | XMS_ITS | Referral Summary ---
Author Organization [facility] 8 [facility] Address 8 [facility] [address] [place] [address] Phone Care Team Providers Care Shield Runner Name Role Phone Jarred Turner MD Unavailable [phone] Jasper Baptiste DO Unavailable [phone] Aicha Johnson MD Unavailable [phone] Ruthie Toussaint MD Primary Care Provider [phone] Avelino Linares MD Unavailable [phone] Encounters Date Type Department Care Team Description 10/29/2024 Orders Only [facility] Pulmonary [address] [facility] 8th [place] [address] [place] [phone] Ramon Schulte MD HHT (hereditary hemorrhagic telangiectasia) (HCC) (Primary Dx); Chronic cough 10/27/2024 12:30 PM BOOM STICK WORKER Lab [facility] at [address] [address] HHT (hereditary hemorrhagic telangiectasia) (CMS/HCC) (HCC); Iron deficiency anemia due to chronic blood loss; Hereditary hemorrhagic telangiectasia (HCC); Abnormal findings on diagnostic imaging of other specified body structures 10/27/2024 1:30 PM BOOM STICK WORKER Office Visit [facility] Oncology [address] [place] [address] [place] [id number] Jasper Baptiste, HHT (hereditary hemorrhagic telangiectasia) (CMS/HCC) (HCC); Iron deficiency anemia due to chronic blood loss; Simple chronic bronchitis (HCC); Atrial fibrillation, persistent (HCC) 10/23/2024 Orders Only [facility] Oncology [address] [place] [address] [address] [place] [address] Lillian Red RN Hereditary hemorrhagic telangiectasia (HCC) (Primary Dx); Abnormal findings on diagnostic imaging of other specified body structures 10/19/2024 Orders Only [facility] Oncology [address] [place] [address] [address] [place] [address] Jasper Baptiste DO 10/19/2024 Telephone [facility] Oncology [address] [place] [address] [address] [place] [address] Majo Collins CMA 09/25/2024 Telephone [facility] Oncology [address] [place] [address] [address] [place] [address] Judy Castillo RN 09/20/2024 Orders Only [facility] Oncology [address] [place] [address] [address] [place] [address] Fei Lowe MD 09/20/2024 1:12 PM BOOM STICK WORKER - 09/20/2024 11:59 PM BOOM STICK WORKER Hospital Encounter [facility] [address] [place] [address] HHT (hereditary hemorrhagic telangiectasia) (CMS/HCC) (HCC); Iron deficiency anemia due to chronic blood loss; Pulmonary nodules; Thoracic aortic aneurysm without rupture, unspecified part (HCC); Liver lesion, left lobe; Liver lesion, right lobe Discharge Disposition: Discharge to home or self care 09/19/2024 Orders Only [facility] Oncology [address] [place] [address] [address] [place] [address] Fei Lowe MD 09/13/2024 Telephone [facility] Cardiology [address] [facility] [address] [place] [phone] Peterson Dawson MD 09/13/2024 10:30 AM BOOM STICK WORKER Office Visit [facility] Cardiology [address] [facility] [address] [place] [address] Yvonne Grigsby NP CAD in [place] artery (Primary Dx); Atrial fibrillation, persistent (HCC); Presence of Watchman left atrial appendage closure device; Hyperlipidemia, unspecified hyperlipidemia type; Tobacco abuse 08/25/2024 Orders Only [facility] Pulmonary [address] [facility] Medicine 8th [place] [address] [place] [phone] Zenobia Le RN HHT (hereditary hemorrhagic telangiectasia) (HCC) (Primary Dx); 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) 08/25/2024 9:15 AM BOOM STICK WORKER Lab [address] [address] Iron deficiency anemia due to chronic blood loss 08/25/2024 10:15 AM BOOM STICK WORKER Office Visit [facility] Oncology [address] [facility] [address] [place] [phone] Jasper Baptiste, HHT (hereditary hemorrhagic telangiectasia) (CMS/HCC) (HCC) (Primary Dx); Iron deficiency anemia due to chronic blood loss; Pulmonary nodules; Thoracic aortic aneurysm without rupture, unspecified part (HCC); Liver lesion, left lobe; Liver lesion, right lobe 08/15/2024 10:30 AM BOOM STICK WORKER Office Visit [facility] Pulmonology [address] [facility] [address] [place] [phone] Hi Reynolds MD Multiple pulmonary nodules (Primary Dx); Chronic cough; Cigarette nicotine dependence in remission; HHT (hereditary hemorrhagic telangiectasia) (CMS/HCC) (HCC); Anxiety; Non-seasonal allergic rhinitis due to pollen; Centrilobular emphysema (HCC); Simple chronic bronchitis (HCC); Atrial fibrillation, unspecified type (HCC); Pulmonary air trapping 08/01/2024 12:45 PM CDT Infusion [address] [place] [phone] Iron deficiency anemia due to chronic blood loss (Primary Dx); Encounter for adjustment and management of unspecified implanted device from Last 3 Months Allergies Active Allergy Reactions Criticality Noted Date Comments Aspirin Unknown High 10/26/2022 Bleeding Levofloxacin Hives,Rash Medium Clopidogrel Unknown High 10/26/2022 Bleeding Medications finasteride (PROSCAR) 5 mg tabletIndications :benign prostatic hyperplasia with lower urinary tract sx Take 1 tablet (5 mg total) by mouth every morning 12 019 Active tamsulosin (FLOMAX) 0.4 mg extended release capsule TAKE 1 CAPSULE BY MOUTH EVERY DAY 90 capsule 020 Active medical cannabis eachIndications:t o aid increasing appetite Take 1 Dose by mouth 3 (three) times a day before meals Active metoprolol tartrate (LOPRESSOR) 25 mg immediate release tablet TAKE 1 TABLET BY MOUTH TWICE A DAY 180 tablet 2 024 Active GamookTouch Ultra Test strip USE TO CHECK BLOOD SUGAR BEFORE MEALS OR AT BEDTIME 024 Active GamookTouch Delica Plus Lancet 33 gauge misc USE TO CHECK SUGAR BEFORE MEALS OR AT BEDTIME 024 Active albuterol 2.5 mg /3 mL (0.083 %) nebulizer solutionIndicatio ns:Centrilobular emphysema (HCC) TAKE 3 ML (2.5 MG TOTAL) BY NEBULIZATION 4 (FOUR) TIMES A DAY 375 mL 5 024 Active ascorbate calcium, vitamin C, 500 mg tablet Take 1 tablet by mouth daily 30 tablet 024 Active gabapentin (NEURONTIN) 300 mg capsuleIndication s:Tfnht-Jskix-Pza du disease (HCC) TAKE 2 CAPSULES BY MOUTH EVERY DAY AT NIGHT 180 capsule 1 024 Active atorvastatin (LIPITOR) 20 mg tablet TAKE 1 TABLET BY MOUTH EVERY DAY 90 tablet 1 024 Active nr-elq-fqzes-K1-l ycopen-lutein [id number] mcg tablet Take 1 tablet/capsule by mouth daily Active isosorbide mononitrate ER (IMDUR) 60 mg 24 hr tabletIndications :Coronary artery disease involving [place] coronary artery of [place] heart with angina pectoris (HCC),Dyspnea, unspecified type Take 1 tablet (60 mg total) by mouth daily 90 tablet 1 Active ferrous sulfate 325 mg (65 mg of elemental iron) tablet TAKE 1 TABLET BY MOUTH 3 TIMES A DAY WITH MEALS. 270 tablet 1 024 Active mirtazapine (REMERON) 7.5 mg tablet TAKE 1 TABLET BY MOUTH EVERY DAY NIGHTLY 90 tablet 024 Active omeprazole (PriLOSEC) 40 mg capsule TAKE 1 CAPSULE BY MOUTH EVERY DAY 90 capsule Active albuterol HFA (PROVENTIL HFA,VENTOLIN HFA,PROAIR HFA) 90 mcg/actuation inhaler INHALE 2 PUFFS BY MOUTH EVERY 6 HOURS NEEDED FOR WHEEZING 18 each 6 Active tranexamic acid (LYSTEDA) 650 mg tablet Take 1 tablet (650 mg total) by mouth 2 (two) times a day 10 tablet 024 Active morphine ER (MS CONTIN) 60 mg 12 hr tabletIndications :Hereditary hemorrhagic telangiectasia (HCC),Osler-Wood -Rendu disease (HCC) Take 1 tablet (60 mg total) by mouth 3 (three) times a day Dose increased to 60 mg TID as of 09/14/2022 90 tablet 025 Active PARoxetine (PAXIL) 20 mg tablet Take 1 tablet (20 mg total) by mouth every morning 30 tablet 1 025 Active SUMAtriptan (IMITREX) 100 mg tablet TAKE 1 TABLET BY MOUTH ONCE NEEDED FOR MIGRAINE 9 tablet 1 025 Active doxycycline (PERIOSTAT) 20 mg tablet TAKE 1 TABLET BY MOUTH TWICE A DAY 180 tablet 2 025 Active lactulose 0.67 gram/mL solution TAKE 15 ML BY MOUTH AT BEDTIME 1419 mL 025 Active nitroglycerin (NITROSTAT) 0.4 mg SL tablet TAKE 1 TABLET (0.4 MG TOTAL) BY MOUTH EVERY 5 MINUTES NEEDED FOR CHEST PAIN 25 tablet 3 025 Active naloxone (NARCAN) 4 mg/actuation spray,non-aerosol Administer 1 spray into affected nostril(s) as needed for opioid reversal or respiratory depression Call 911. Administer a single spray in one nostril. Repeat every 3 minutes as needed if no or minimal response. 2 each 1 025 2024 Active oxyCODONE (ROXICODONE) 10 mg tabletIndications :Pain Take 1 tablet (10 mg total) by mouth every 6 (six) hours as needed for pain 60 tablet 025 Active naloxone (NARCAN) 4 mg/actuation spray,non-aerosol ADMINISTER 1 SPRAY INTO AFFECTED NOSTRIL(S) NEEDED FOR OPIOID REVERSAL OR RESPIRATORY DEPRESSION CALL 911. ADMINISTER A SINGLE SPRAY IN ONE NOSTRIL. REPEAT EVERY 3 MINUTES NEEDED IF NO OR MINIMAL RESPONSE. 2 each 1 023 2024 Discontinued(R eorder) doxycycline (PERIOSTAT) 20 mg tablet TAKE 1 TABLET BY MOUTH TWICE A DAY 180 tablet 2 024 2024 Discontinued nitroglycerin (NITROSTAT) 0.4 mg SL tablet TAKE 1 TABLET (0.4 MG TOTAL) BY MOUTH EVERY 5 MINUTES NEEDED FOR CHEST PAIN 25 tablet 3 024 2024 Discontinued PARoxetine (PAXIL) 20 mg tablet Take 1 tablet (20 mg total) by mouth every morning 30 tablet 1 024 2024 Discontinued lactulose 0.67 gram/mL solution TAKE 15 ML BY MOUTH AT BEDTIME 1419 mL 024 2024 Discontinued SUMAtriptan (IMITREX) 100 mg tablet TAKE 1 TABLET BY MOUTH ONCE NEEDED FOR MIGRAINE 9 tablet 1 024 2024 Discontinued morphine ER (MS CONTIN) 60 mg 12 hr tabletIndications :Hereditary hemorrhagic telangiectasia (HCC),Osler-Wood -Rendu disease (HCC) Take 1 tablet (60 mg total) by mouth 3 (three) times a day Dose increased to 60 mg TID as of 09/14/2022 90 tablet 024 2024 Discontinued(R eorder) PARoxetine (PAXIL) 20 mg tablet TAKE 1 TABLET BY MOUTH EVERY DAY IN THE MORNING 30 tablet 1 025 2024 Discontinued Active Problems Problem Noted Date Diagnosed Date Encounter for adjustment and management of unspecified implanted device 07/19/2024 A-fib ([facility]) 2024 Atrial fibrillation ([facility]) 02/18/2024 Simple chronic bronchitis 09/06/2023 Pulmonary air trapping 04/27/2023 Iron deficiency anemia due to chronic blood loss 03/18/2023 Epistaxis 06/12/2021 Cigarette nicotine dependence in remission 06/18 Personal history of thromboembolic disease 06/01 Anxiety 06/01/2019 Non-seasonal allergic rhinitis due to pollen Multiple pulmonary nodules 06/01/2019 Chronic cough 06/01/2019 Shortness of breath 06/01/2019 Centrilobular emphysema 06/01/2019 HHT (hereditary hemorrhagic telangiectasia) ([facility]) 12/15/2016 CAD (coronary artery disease) 11/03/2016 Thoracic aortic aneurysm without rupture 012 Immunizations Name Administration Dates Next Due Influenza, Quadrivalent, Spl it, Preservative Free, Intramuscular 07/21/2021,07/02/2020,06/22/2019 Influenza, Unspecified 07/13/2018 Moderna SARS-CoV-2 Monovalen t Vaccination (12+ YRS) 08/25/2021,01/08/2021,12/11/2020 Pneumococcal Conjugate PCV 13 10/04/2015 Pneumococcal Conjugate Pcv20 09/02/2022 Tdap 03/03/2019 ZOSTER LIVE 10/04/2015 ZOSTER Recombinant 09/02/2022 Social History Tobacco Use Types Packs/Day Years Used Date Smoking Tobacco: Former Cigarettes 0.5 40 1 974 - 2011 Smokeless Tobacco: Never Tobacco Cessation:Counseling Given: Not Answered Alcohol Use Standard Drinks/Week Comments Not Currently 0 (1 standard drink = 0.6 oz pur e alcohol) AUDIT-C Answer Date Recorded Q1: How often do you have a drink containing alcohol? Never 2024 Q2: How many drinks containi ng alcohol do you have on a typical day when you are drinking? Patient does not drink Q3: How often do you have si x or more drinks on one occasion? Never 2024 Personal Safety Answer Date Recorded Have you ever been in or are you currently in a harmful physical or emotional relationship or is someone making you feel afraid or unsafe? Denies 05/04/2024 Sex and Gender Information Value Date Recorded Sex Assigned at Not on file Legal Sex Male 4:45 AM BOOM STICK WORKER Gender Identity Not on file Sexual Orientation Not on file Last Filed Vital Signs Vital Sign Reading Time Taken Comments Blood Pressure 120/86 10/27/2024 1:20 PM BOOM STICK WORKER Pulse 64 10/27/2024 1:20 PM BOOM STICK WORKER Temperature 36.9 ??C (98.4 ??F) 10/27/2024 1:20 PM CS T Respiratory Rate 18 10/27/2024 1:20 PM BOOM STICK WORKER Oxygen Saturation 96% 10/27/2024 1:20 PM BOOM STICK WORKER Inhaled Oxygen Concentration - - Weight 67.9 kg (149 lb 12.8 oz) 10/27/2024 1:20 PM BOOM STICK WORKER Height 184.2 cm (6' 0.5 ) 10/27/2024 1:20 PM BOOM STICK WORKER w shoes Body Mass Index 20.04 10/27/2024 1:20 PM BOOM STICK WORKER Plan of Treatment Not on file Medical Devices Implanted Type Area B2B Sales Consultant Device Identifier Shelf Expiration Date Model / Serial / Lot [employer] Gabriela Device Closure 24mm Lt Watchman Flx Pro Cardiac Strl La [id number] - S0 - [id number] Implanted:Qty: 1 on 2024 by Victoriano Loyola MD at [facility] Left Atrial Appendage Occluder N/A: Atrial Appendage [employer] Gabriela 12/02/2026 [id number] / 0 / [id number] [employer] System Closure Repair Femoral Artery Suture Mediated Perclose Prostyle 86436-37 - S0 - [id number] Implanted:Qty: 1 on 2024 by Victoriano Loyola MD at [facility] Vascular Closure Device N/A: Femoral [employer] 12/01/2025 [id number] / 0 / [id number] [employer] System Closure Repair Femoral Artery Suture Mediated Perclose Prostyle 23523-39 - S0 - [id number] Implanted:Qty: 1 on 2024 by Victoriano Loyola MD at [facility] Vascular Closure Device N/A: Femoral [employer] 12/01/2025 [id number] / 0 / [id number] [employer] [id number] Coil Embolization Wellington Micro[employer]il Lummi L14cm Od3mm .018 In Catheter - [id number] Implanted:Qty: 1 on 11/17/2021 at [facility] [employer] 11/09/2022 [id number] / / [id number] [employer] [id number] Coil Embolization Wellington Microcoil Lummi L14cm Od3mm .018 In Catheter - [id number] Implanted:Qty: 1 on 11/17/2021 at [facility] [employer] 03/19/2022 [id number] / / [id number] [employer] [id number] Coil Embolization Wellington Microcoil Lummi L14cm Od3mm .018 In Catheter - [id number] Implanted:Qty: 1 on 11/17/2021 at [facility] [employer] 03/19/2022 [id number] / / [id number] [employer] [id number] Coil Embolization Wellington Microcoil Lummi L14cm Od3mm .018 In Catheter - [id number] Implanted:Qty: 1 on 11/17/2021 at [facility] [employer] 03/02/2023 [id number] / / [id number] Procedures Procedure Name Priority Date/Time Associated Diagnosis Comments EGFR Routine 10/27/2024 12:41 PM BOOM STICK WORKER Hereditary hemorrhagic telangiectasia (HCC) DIFFERENTIAL AUTO Routine 10/27/2024 12:41 PM BOOM STICK WORKER HHT (hereditary hemorrhagic telangiectasia) (HCC) Iron deficiency anemia due to chronic blood loss COMPREHENSIVE METABOLIC PANEL Routine 10/27/2024 12:41 PM BOOM STICK WORKER Hereditary hemorrhagic telangiectasia (HCC) TSH Routine 10/27/2024 12:41 PM BOOM STICK WORKER Hereditary hemorrhagic telangiectasia (HCC) Abnormal findings on diagnostic imaging of other specified body structures CBC WITH AUTO DIFFERENTIAL Routine 10/27/2024 12:41 PM BOOM STICK WORKER HHT (hereditary hemorrhagic telangiectasia) (CMS/HCC) (HCC) Iron deficiency anemia due to chronic blood loss FERRITIN Routine 10/27/2024 12:41 PM BOOM STICK WORKER HHT (hereditary hemorrhagic telangiectasia) (CMS/HCC) (HCC) Iron deficiency anemia due to chronic blood loss RETICULOCYTES Routine 10/27/2024 12:41 PM BOOM STICK WORKER HHT (hereditary hemorrhagic telangiectasia) (CMS/HCC) (HCC) Iron deficiency anemia due to chronic blood loss CBC WITH AUTO DIFFERENTIAL Routine 10/19/2024 3:[address] CHEST ABDOMEN W CONTRAST Schedule Routine, Read Routine (OP Routine) 09/20/2024 1:25 PM BOOM STICK WORKER HHT (hereditary hemorrhagic telangiectasia) (CMS/HCC) (HCC) Iron deficiency anemia due to chronic blood loss Pulmonary nodules Thoracic aortic aneurysm without rupture, unspecified part (HCC) Liver lesion, left lobe Liver lesion, right lobe CBC WITH AUTO DIFFERENTIAL Routine 09/19/2024 1:49 PM BOOM STICK WORKER RETICULOCYTE COUNT Routine 09/19/2024 10:21 AM BOOM STICK WORKER FERRITIN Routine 09/19/2024 8:17 AM BOOM STICK WORKER EGFR Routine 08/25/2024 9:15 AM BOOM STICK WORKER Iron deficiency anemia due to chronic blood loss DIFFERENTIAL AUTO Routine 08/25/2024 9:1 5 AM BOOM STICK WORKER Iron deficiency anemia due to chronic blood loss CBC WITH AUTO DIFFERENTIAL Routine 08/25/2024 9:15 AM BOOM STICK WORKER Iron deficiency anemia due to chronic blood loss COMPREHENSIVE METABOLIC PANEL Routine 08/25/2024 9:15 AM BOOM STICK WORKER Iron deficiency anemia due to chronic blood loss FERRITIN Routine 08/25/2024 9:15 AM BOOM STICK WORKER Iron deficiency anemia due to chronic blood loss IRON PROFILE W/ IBC Routine 08/25/2024 9 :15 AM BOOM STICK WORKER Iron deficiency anemia due to chronic blood loss from Last 3 Months Results * eGFR (10/27/2024 12:41 PM BOOM STICK WORKER) eGFR 85 >=60 mL/min/1. 73 m2 Comment: Interpretive Data Reference Interval Normal ?>/= 90 mL/min/1.73m2 Mildly decreased* ? 60 - 89 mL/min/1.73m2 Mildly to moderately decreased ?45 - 59 mL/min/1.73m2 Moderately to severely decreased ??30 - 44 mL/min/1.73m2 Severely decreased ?15 - 29 mL/min/1.73m2 Kidney Failure ?< 15 ??mL/min/1.73m2 *Relative to young adult level Estimated glomerular filtration rate is determined by the 2020 CKD-EPI equation recommended by the National Kidney Foundation (A Unifying Approach to GFR Estimation: Recommendations of the NKF-ASK Task Force on Reassessing the Inclusion of Race in Diagnosing Kidney Disease, JASN 2020). The CKD-EPI equation should not be used for patients with unstable renal function and has not been validated in children and those over 70. Current interpretive data was last reviewed 2021. Testing performed by: [address] [address] Blood 10/27/2024 12:4 1 PM BOOM STICK WORKER 10/27/2024 12:44 PM BOOM STICK WORKER us Jasper Baptiste DO LAB BLOOD ORDERABLES Final R esult ABHIJEET [address] [facility] Department [place] [address] * Differential, auto (10/27/2024 12:41 PM BOOM STICK WORKER) Neutrophil abs 3.6 1.5 - 6.5 K/cumm Comment:Testing performed by : [address] [address] Imm gran abs 0.0 0.0 - 0.1 K/cumm ABHIJEET HARRIS Comment:Testing performed by : [address] [address] Lymphocyte abs 1.8 0.8 - 3.3 K/cumm ABHIJEET HARRIS Comment:Testing performed by : [address] [address] Monocyte abs 0.6 0.2 - 0.8 K/cumm [facility] Comment:Testing performed by : [address] [address] Eosinophil abs 0.2 0.0 - 0.5 K/cumm [facility] Comment:Testing performed by : [address] [address] Basophil abs 0.1 0.0 - 0.1 K/cumm [facility] Comment:Testing performed by : [address] [address] Neutrophil pct 57.6 % [facility] Comment: Interpretive Data Percent cell count reference ranges are not reported, since discordance with absolute values may lead to misinterpretation of CBC data. Current Interpretive Data was last revised on 2018. Testing performed by: [address] [address] Imm gran pct 0.2 % [facility] Comment: Interpretive Data Percent cell count reference ranges are not reported, since discordance with absolute values may lead to misinterpretation of CBC data. Current Interpretive Data was last revised on 2018. Testing performed by: [address] [address] Lymphocyte pct 28.2 % [facility] Comment: Interpretive Data Percent cell count reference ranges are not reported, since discordance with absolute values may lead to misinterpretation of CBC data. Current Interpretive Data was last revised on 2018. Testing performed by: [address] [address] Monocyte pct 9.4 % [facility] Comment: Interpretive Data Percent cell count reference ranges are not reported, since discordance with absolute values may lead to misinterpretation of CBC data. Current Interpretive Data was last revised on 2018. Testing performed by: [address] [address] Eosinophil pct 3.5 % [facility] Comment: Interpretive Data Percent cell count reference ranges are not reported, since discordance with absolute values may lead to misinterpretation of CBC data. Current Interpretive Data was last revised on 2018. Testing performed by: [address] [address] Basophil pct 1.1 % ABHIJEET Comment: Interpretive Data Percent cell count reference ranges are not reported, since discordance with absolute values may lead to misinterpretation of CBC data. Current Interpretive Data was last revised on 2018. Testing performed by: [address] [address] Blood 10/27/2024 12:4 1 PM BOOM STICK WORKER 10/27/2024 12:44 PM BOOM STICK WORKER us Jasper Baptiste DO LAB BLOOD ORDERABLES Final R esult ABHIJEET [address] [facility] Department [place] [address] * (ABNORMAL) CBC with auto differential (10/27/2024 12:41 PM BOOM STICK WORKER) WBC 6.3 3.8 - 9.9 K/cumm Comment:Testing performed by : [address] [address] Hgb 11.9(L) 13.0 - 17.5 g/dL ABHIJEET Comment:Testing performed by : [address] [address] Hct 36.1(L) 38.9 - 50.3 % ABHIJEET Comment:Testing performed by : [address] [address] Plt 254 150 - 400 K/cumm ABHIJEET Comment:Testing performed by : [address] [address] MPV 9.8 9.1 - 12.3 fL ABHIJEET Comment:Testing performed by : [address] [address] RBC 3.81(L) 4.30 - 5.80 M/cumm ABHIJEET Comment:Testing performed by : [address] [address] MCV 94.8 81.3 - 96.4 fL ABHIJEET Comment:Testing performed by : [address] [address] MCH 31.2 27.1 - 33.3 pg ABHIJEET Comment:Testing performed by : [address] [address] MCHC 33.0 32.3 - 35.7 g/dL ABHIJEET HARRIS Comment:Testing performed by : [address] [address] RDW CV 15.2(H) 11.1 - 14.9 % ABHIJEET Comment:Testing performed by : [address] [address] RDW SD 52.9(H) 35.7 - 48.1 fL ABHIJEET Comment:Testing performed by : [address] [address] NRBC abs 0.00 0.00 - 0.01 K/cumm ABHIJEET HARRIS Comment:Testing performed by : [address] [address] Blood 10/27/2024 12:4 1 PM BOOM STICK WORKER 10/27/2024 12:44 PM BOOM STICK WORKER us Jasper Baptiste DO LAB BLOOD ORDERABLES Final R esult ABHIJEET [address] [facility] Department [place] [address] * Reticulocyte Count (10/27/2024 12:41 PM BOOM STICK WORKER) Retics, absolute 0.058 0.020 - 0.087 M/cumm Comment:Testing performed by : [address] [address] Retics 1.5 0.4 - 2.9 % ABHIJEET Comment:Testing performed by : [address] [address] Reticulocyte Hgb 34.2 30.5 - 38.0 pg ABHIJEET Comment:Testing performed by : [address] [address] Blood 10/27/2024 12:4 1 PM BOOM STICK WORKER 10/27/2024 12:44 PM BOOM STICK WORKER Jasper Martinonti LAB BLOOD ORDERABLES Final R esult Performing Organization Address [facility] Co de Phone Number ABHIJEET [address] [place] [address] * TSH (10/27/2024 12:41 PM BOOM STICK WORKER) Thyroid Stimulating Hormone 1.78 0.30 - 4.20 mcIUnit/mL Comment:Testing performed by : [address] [address] Blood 10/27/2024 12:4 1 PM BOOM STICK WORKER 10/27/2024 1:44 PM BOOM STICK WORKER Jasper BustillosKamilah Oliva LAB BLOOD ORDERABLES Final R esult Performing Organization Address [facility] Co de Phone Number [id number] [address] [address] * Ferritin (10/27/2024 12:41 PM BOOM STICK WORKER) Pathologist [facility] Ferritin 69 30 - 400 ng/mL Comment:Testing performed by : [address] [address] Blood 10/27/2024 12:4 1 PM BOOM STICK WORKER 10/27/2024 1:44 PM BOOM STICK WORKER Jasper Martinonti LAB BLOOD ORDERABLES Final R esult Performing Organization Address [facility] Co de Phone Number MARA[address] [address] * Comprehensive metabolic panel (10/27/2024 12:41 PM BOOM STICK WORKER) Pathologist [facility] Sodium 140 135 - 145 mmol/L Comment:Testing performed by : [address] [address] Potassium, pl 4.7 3.3 - 4.9 mmol/L ABHIJEET Comment:Testing performed by : [address], [place]., [address] Chloride 104 97 - 110 mmol/L ABHIJEET Comment:Testing performed by : [address], [place]., [address] CO2 27 22 - 32 mmol/L ABHIJEET Comment:Testing performed by : [address], [place]., [address] Anion gap 9 2 - 15 mmol/L ABHIJEET Comment:Testing performed by : [address], [place]., [address] BUN 11 6 - 25 mg/dL ABHIJEET Comment:Testing performed by : [address], [place]., [address] Creatinine 1.00 0.80 - 1.30 mg/dL ABHIJEET Comment:Testing performed by : [address], [place]., [address] Glucose 122 70 - 199 mg/dL ABHIJEET Comment: Interpretive Data Fasting glucose >/= 126 mg/dl is diagnostic for diabetes. ?? Fasting is defined as no caloric intake for at least 8 hours. Fasting glucose between 100 mg/dl to 125 mg/dl is diagnostic of prediabetes. In a patient with classic symptoms of hyperglycemia or hyperglycemic crisis, a random glucose >/= 200 mg/dl is diagnostic for diabetes. In the absence of unequivocal hyperglycemia, results should be confirmed by repeat testing. The classification and Diagnosis of Diabetes Diabetes Care 2021; 46: S19-S40. Current interpretive data was last revised 2022. Testing performed by: [address] [address] Calcium 9.1 8.5 - 10.3 mg/dL ABHIJEET Comment:Testing performed by : [address] [address] Bilirubin, total 0.3 0.1 - 1.2 mg/dL ABHIJEET Comment:Testing performed by : [address] [address] Protein, pl 6.8 6.5 - 8.5 g/dL ABHIJEET Comment:Testing performed by : [address] [address] Albumin 3.9 3.5 - 5.0 g/dL ABHIJEET Comment:Testing performed by : [address] [address] Alk phos 88 40 - 130 Units/L ABHIJEET Comment:Testing performed by : [address] [address] ALT 11 7 - 55 Units/L ABHIJEET Comment:Testing performed by : [address] [address] AST 23 10 - 50 Units/L ABHIJEET Comment:Testing performed by : [address] [address] Blood 10/27/2024 12:4 1 PM BOOM STICK WORKER 10/27/2024 12:44 PM BOOM STICK WORKER Jasper Baptiste DO LAB BLOOD ORDERABLES Final R esult Performing Organization Address City/[facility]/ZIP Co de Phone Number ABHIJEET [address] Department [place] [address] * (ABNORMAL) CBC with auto differential (10/19/2024 3:20 PM BOOM STICK WORKER) Blood Jasper Baptiste DO LAB BLOOD ORDERABLES Final R esult Performing Organization Address City/[facility]/ZIP Co de Phone Number [facility] [address] [phone] * CT Chest Abdomen W Contrast (09/20/2024 1:25 PM BOOM STICK WORKER) Anatomical Region Laterality Modality Body N/A Computed Tomogra phy 09/25/2024 1:12 PM BOOM STICK WORKER Narrative 09/25/2024 2:00 PM BOOM STICK WORKER EXAM DESCRIPTION: ?? CT CHEST ABDOMEN W CONTRAST REASON FOR STUDY: ?? Pulmonary nodules, Aortic Anuersym, Liver AVM's ?? 3 month f/u on HHT, pulmonary nodules, aortic aneurysm, liver AVM's. No complaints. Hx of watchman. ? TECHNIQUE: CT scan of the chest and abdomen performed ??with ??intravenous and ?? without ??oral contrast using helical scanning technique with dynamic intravenous contrast injection. Reconstructed coronal and sagittal MPR images reviewed. ?All images stored on PACS. Automated exposure control was used as a dose optimization technique for this examination. CONTRAST TYPE/DOSE: ?? 100mL of IOVERSOL 350 MG IODINE/ML INTRAVENOUS SYRINGE ?? was injected via the ?? intravenous COMPARISON: ?? 06/30/2024 REFERENCE: Per ACR white paper recommendations, unless otherwise specified no follow-up imaging is recommended for incidental renal and adrenal lesions per consensus recommendations based on imaging criteria. Further lab evaluation could be pursued based on clinical findings. FINDINGS: CHEST LUNGS: ??There is no definite evidence of a pneumothorax. ??The central airways are grossly patent. ??There is scattered subtle mild bronchial wall thickening, which is concerning for mild acute bronchitis/bronchiolitis. ??There are mild emphysematous changes of lungs with scattered mild subsegmental atelectasis and scarring. ??There is no definite evidence of pleural effusion. There is interval development of patchy ground-glass airspace opacities in the right upper lobe, which is concerning for pneumonitis of infectious or inflammatory etiology, however given the underlying AV malformations, pulmonary hemorrhage can not be entirely excluded. There is redemonstration of multiple nodular opacities in the right upper lobe, which are contiguous with the right upper lobe pulmonary artery and venous branches, which is compatible with patient's known history of avascular malformations. ??For example, there is a stable 0.5 cm pulmonary nodule in the posterior right upper lobe (axial image 25). ??There is a stable 0.5 cm pulmonary nodule in the anterolateral right upper lobe (axial image 29). ?? There is a stable 0.4 cm nodule in the anterior right upper lobe (axial image 33). There is grossly stable irregular pulmonary nodule in the central left lower lobe measuring 0.5 cm, which is grossly unchanged since 10/20/2021, and therefore likely benign (axial image 84). MEDIASTINUM/EMILIO: ??The heart size is stable. ??There is no definite evidence of a pericardial effusion. ??There are atherosclerotic changes of the coronary vessels. ??There are atherosclerotic changes of the aorta with grossly stable aneurysmal dilatation of the ascending thoracic aorta measuring up to 4.1 cm. There is no definite evidence of mediastinal, hilar, or axillary lymphadenopathy. ??There are scattered prominent subcentimeter mediastinal lymph nodes noted with the largest measuring 0.8 cm in the precarinal region (axial image 50). ??There are scattered prominent subcentimeter hilar lymph nodes noted bilaterally with the largest measuring 0.8 cm on the right (axial image 55) and 0.6 cm on the left (axial image 55). CHEST WALL: ??No masses. ??No subcutaneous air. HARDWARE/LIFELINES: ??There is redemonstration of the postsurgical changes involving the left atrial appendage with watchman procedure, similar to the prior study. ??There is redemonstration of the IVC filter. Recommend assessment of the IVC filter management plan, and if not currently established, nonemergent patient referral to an interventional clinician for further evaluation. ABDOMEN LIVER: ??There is redemonstration of numerous foci of nodular enhancement involving the liver, which is overall grossly similar to the prior study, and likely related to numerous underlying avascular malformations. ??The hepatic and portal veins are grossly patent. GALLBLADDER: ??Grossly unremarkable. BILE DUCTS: ??No intrahepatic or extrahepatic ductal dilatation. SPLEEN: ??The spleen is grossly stable in size and unremarkable. PANCREAS: ??The pancreas appears grossly stable without definite of pancreatic ductal dilatation, peripancreatic inflammatory changes, or peripancreatic fluid collection. ?? ADRENALS: ??The bilateral adrenal glands are grossly stable and unremarkable. KIDNEYS/URINARY TRACT: ??The bilateral kidneys enhance symmetrically. ??There are multiple cysts noted in the bilateral kidneys with largest measuring up to 2.2 cm on the right and 2.5 cm on the left, which do not require follow-up imaging. There is no definite evidence of hydronephrosis.. GI: ??There is no definite evidence of dilatation of the visualized large and small bowel to suggest bowel obstruction. ??There is moderate amount of retained fecal debris in the visualized colon. ??There is no definite evidence of free air or fluid in the abdomen. ??There is no definite evidence of abdominal lymphadenopathy. MUSCULOSKELETAL : ??There is a minimal S shaped scoliotic curvature of the spine with degenerative changes. OTHER: ??No significant abnormality. IMPRESSION: Interval development of patchy ground-glass airspace opacities in the right upper lobe, which is concerning for pneumonitis of infectious or inflammatory etiology, however given the underlying AV malformations, pulmonary hemorrhage can not be entirely excluded. ??Clinical correlation with physical exam findings and laboratory values is recommended as clinically indicated. ?? Short-term follow-up chest CT in 1-2 months is recommended to assess for resolution as clinically indicated. Redemonstration of multiple nodular opacities in the right upper lobe, which are contiguous with the right upper lobe pulmonary artery and venous branches, which is compatible with patient's known history of avascular malformations. Mild emphysematous changes of lungs with scattered mild subsegmental atelectasis and scarring. ??Recommend evaluation for annual lung cancer screening enrollment if the patient qualifies based on clinical factors and smoking history. ?? Redemonstration of numerous foci of nodular enhancement involving the liver, which is overall grossly similar to the prior study, and likely related to numerous underlying avascular malformations. No definite evidence of dilatation of the visualized large and small bowel to suggest bowel obstruction. Moderate amount of retained fecal debris in the visualized colon, which is concerning for constipation. Findings were discussed with ?Oliva's nurse, Jesus Castillo RN, ??by Dr. Montes at ??14:00 ??hours on ??09/25/2024 . THIS IS AN ELECTRONICALLY VERIFIED FINAL REPORT 09/25/2024 2:00 PM - Electronically signed by ??James Montes D.O. PS: PS D: ??09/25/2024 2:00 PM T: ??09/25/2024 2:00 PM Report ID: [id number] Reading Location: ??[id number] Procedure Note James Montes, DO - 09/25/2024 EXAM DESCRIPTION: CT CHEST ABDOMEN W CONTRAST REASON FOR STUDY: Pulmonary nodules, Aortic Anuersym, Liver AVM's 3 month f/u on HHT, pulmonary nodules, aortic aneurysm, liver AVM's. No complaints. Hx of watchman. TECHNIQUE: CT scan of the chest and abdomen performed with intravenousand without oral contrast using helical scanning technique with dynamic intravenous contrast injection. Reconstructed coronal and sagittal MPRimages reviewed. All images stored on PACS. Automated exposure control wasused as a dose optimization technique for this examination. CONTRAST TYPE/DOSE: 100mL of IOVERSOL 350 MG IODINE/ML INTRAVENOUSSYRINGE was injected via the intravenous COMPARISON: 06/30/2024 REFERENCE: Per ACR white paper recommendations, unless otherwise specifiedno follow-up imaging is recommended for incidental renal and adrenal lesionsper consensus recommendations based on imaging criteria. Further labevaluation could be pursued based on clinical findings. FINDINGS: CHEST LUNGS: There is no definite evidence of a pneumothorax. The centralairways are grossly patent. There is scattered subtle mild bronchial wallthickening, which is concerning for mild acute bronchitis/bronchiolitis. There aremild emphysematous changes of lungs with scattered mild subsegmentalatelectasis and scarring. There is no definite evidence of pleural effusion. There is interval development of patchy ground-glass airspace opacities inthe right upper lobe, which is concerning for pneumonitis of infectious or inflammatory etiology, however given the underlying AV malformations, pulmonary hemorrhage can not be entirely excluded. There is redemonstration of multiple nodular opacities in the right upper lobe, which are contiguous with the right upper lobe pulmonary artery and venous branches, which is compatible with patient's known history ofavascular malformations. For example, there is a stable 0.5 cm pulmonary nodule inthe posterior right upper lobe (axial image 25). There is a stable 0.5 cm pulmonary nodule in the anterolateral right upper lobe (axial image 29). There is a stable 0.4 cm nodule in the anterior right upper lobe (axialimage 33). There is grossly stable irregular pulmonary nodule in the central leftlower lobe measuring 0.5 cm, which is grossly unchanged since 10/20/2021, and therefore likely benign (axial image 84). MEDIASTINUM/EMILIO: The heart size is stable. There is no definiteevidence of a pericardial effusion. There are atherosclerotic changes of the coronary vessels. There are atherosclerotic changes of the aorta with grosslystable aneurysmal dilatation of the ascending thoracic aorta measuring up to 4.1cm. There is no definite evidence of mediastinal, hilar, or axillary lymphadenopathy. There are scattered prominent subcentimeter mediastinal lymph nodes noted with the largest measuring 0.8 cm in the precarinalregion (axial image 50). There are scattered prominent subcentimeter hilar lymph nodes noted bilaterally with the largest measuring 0.8 cm on the right(axial image 55) and 0.6 cm on the left (axial image 55). CHEST WALL: No masses. No subcutaneous air. HARDWARE/LIFELINES: There is redemonstration of the postsurgical changes involving the left atrial appendage with watchman procedure, similar tothe prior study. There is redemonstration of the IVC filter. Recommend assessment of the IVC filter management plan, and if notcurrently established, nonemergent patient referral to an interventional clinicianfor further evaluation. ABDOMEN LIVER: There is redemonstration of numerous foci of nodular enhancement involving the liver, which is overall grossly similar to the prior study,and likely related to numerous underlying avascular malformations. Thehepatic and portal veins are grossly patent. GALLBLADDER: Grossly unremarkable. BILE DUCTS: No intrahepatic or extrahepatic ductal dilatation. SPLEEN: The spleen is grossly stable in size and unremarkable. PANCREAS: The pancreas appears grossly stable without definite ofpancreatic ductal dilatation, peripancreatic inflammatory changes, or peripancreatic fluid collection. ADRENALS: The bilateral adrenal glands are grossly stable andunremarkable. KIDNEYS/URINARY TRACT: The bilateral kidneys enhance symmetrically.There are multiple cysts noted in the bilateral kidneys with largest measuringup to 2.2 cm on the right and 2.5 cm on the left, which do not require follow-up imaging. There is no definite evidence of hydronephrosis.. GI: There is no definite evidence of dilatation of the visualized largeand small bowel to suggest bowel obstruction. There is moderate amount of retained fecal debris in the visualized colon. There is no definiteevidence of free air or fluid in the abdomen. There is no definite evidence of abdominal lymphadenopathy. MUSCULOSKELETAL : There is a minimal S shaped scoliotic curvature of the spine with degenerative changes. OTHER: No significant abnormality. IMPRESSION: Interval development of patchy ground-glass airspace opacities in theright upper lobe, which is concerning for pneumonitis of infectious orinflammatory etiology, however given the underlying AV malformations, pulmonaryhemorrhage can not be entirely excluded. Clinical correlation with physical exam findings and laboratory values is recommended as clinically indicated. Short-term follow-up chest CT in 1-2 months is recommended to assess for resolution as clinically indicated. Redemonstration of multiple nodular opacities in the right upper lobe,which are contiguous with the right upper lobe pulmonary artery and venousbranches, which is compatible with patient's known history of avascularmalformations. Mild emphysematous changes of lungs with scattered mild subsegmental atelectasis and scarring. Recommend evaluation for annual lung cancer screening enrollment if the patient qualifies based on clinical factorsand smoking history. Redemonstration of numerous foci of nodular enhancement involving theliver, which is overall grossly similar to the prior study, and likely related to numerous underlying avascular malformations. No definite evidence of dilatation of the visualized large and smallbowel to suggest bowel obstruction. Moderate amount of retained fecal debris in the visualized colon, whichis concerning for constipation. Findings were discussed with Dr. Baptiste's nurse, Jesus Castillo RN, byDr. Montes at 14:00 hours on 09/25/2024 . THIS IS AN ELECTRONICALLY VERIFIED FINAL REPORT 09/25/2024 2:00 PM - Electronically signed by James Montes D.O. PS: PS Report ID: [id number] Reading Location: [place] [address] [facility] Jasper Baptiste DO IMG CT PROCEDURES Final Resu lt * CBC with auto differential (09/19/2024 1:49 PM BOOM STICK WORKER) Blood Result [facility] Provider MD LAB BLOOD ORDERABLES Leticia l Result * Reticulocyte Count (09/19/2024 10:21 AM BOOM STICK WORKER) Result [facility] Provider MD LAB BLOOD ORDERABLES Leticia l Result * Ferritin (09/19/2024 8:17 AM BOOM STICK WORKER) Blood Result [facility] Provider MD LAB BLOOD ORDERABLES Leticia l Result * eGFR (08/25/2024 9:15 AM BOOM STICK WORKER) eGFR >90 >=60 mL/min/1. 73 m2 Comment: Interpretive Data Reference Interval Normal ?>/= 90 mL/min/1.73m2 Mildly decreased* ? 60 - 89 mL/min/1.73m2 Mildly to moderately decreased ?45 - 59 mL/min/1.73m2 Moderately to severely decreased ??30 - 44 mL/min/1.73m2 Severely decreased ?15 - 29 mL/min/1.73m2 Kidney Failure ?< 15 ??mL/min/1.73m2 *Relative to young adult level Estimated glomerular filtration rate is determined by the 2020 CKD-EPI equation recommended by the National [employer] (A Unifying Approach to GFR Estimation: Recommendations of the NKF-ASK Task Force on Reassessing the Inclusion of Race in Diagnosing Kidney Disease, JASN 2020). The CKD-EPI equation should not be used for patients with unstable renal function and has not been validated in children and those over 70. Current interpretive data was last reviewed 2021. Testing performed by: [address] [address] Blood 08/25/2024 9:15 AM BOOM STICK WORKER 08/25/2024 9:17 AM BOOM STICK WORKER Jasper Baptiste DO LAB BLOOD ORDERABLES Final R esult ABHIJEET [address] [facility] Department [place] [address] * Differential, auto (08/25/2024 9:15 AM BOOM STICK WORKER) Neutrophil abs 2.6 1.5 - 6.5 K/cumm Comment:Testing performed by : [address] [address] Imm gran abs 0.0 0.0 - 0.1 K/cumm ABHIJEET HARRIS Comment:Testing performed by : [address] [address] Lymphocyte abs 1.5 0.8 - 3.3 K/cumm [facility] Comment:Testing performed by : [address], [place]., [address] Monocyte abs 0.6 0.2 - 0.8 K/cumm [facility] Comment:Testing performed by : [address], [place]., [address] Eosinophil abs 0.2 0.0 - 0.5 K/cumm [facility] Comment:Testing performed by : [address], [place]., [address] Basophil abs 0.0 0.0 - 0.1 K/cumm [facility] Comment:Testing performed by : [address] [address] Neutrophil pct 52.6 % [facility] Comment: Interpretive Data Percent cell count reference ranges are not reported, since discordance with absolute values may lead to misinterpretation of CBC data. Current Interpretive Data was last revised on 2018. Testing performed by: [address] [address] Imm gran pct 0.4 % [facility] Comment: Interpretive Data Percent cell count reference ranges are not reported, since discordance with absolute values may lead to misinterpretation of CBC data. Current Interpretive Data was last revised on 2018. Testing performed by: [address] [address] Lymphocyte pct 29.8 % [facility] Comment: Interpretive Data Percent cell count reference ranges are not reported, since discordance with absolute values may lead to misinterpretation of CBC data. Current Interpretive Data was last revised on 2018. Testing performed by: [address] [address] Monocyte pct 11.9 % [facility] Comment: Interpretive Data Percent cell count reference ranges are not reported, since discordance with absolute values may lead to misinterpretation of CBC data. Current Interpretive Data was last revised on 2018. Testing performed by: [address] [address] Eosinophil pct 4.7 % [facility] Comment: Interpretive Data Percent cell count reference ranges are not reported, since discordance with absolute values may lead to misinterpretation of CBC data. Current Interpretive Data was last revised on 2018. Testing performed by: [address] [address] Basophil pct 0.6 % ABHIJEET Comment: Interpretive Data Percent cell count reference ranges are not reported, since discordance with absolute values may lead to misinterpretation of CBC data. Current Interpretive Data was last revised on 2018. Testing performed by: [address] [address] Blood 08/25/2024 9:15 AM BOOM STICK WORKER 08/25/2024 9:17 AM BOOM STICK WORKER Jasper Baptiste DO LAB BLOOD ORDERABLES Final R esult Performing Organization Address [facility]/RUST de Phone Number [address] [employer] [place] [address] * (ABNORMAL) Iron profile w/ IBC (08/25/2024 9:15 AM BOOM STICK WORKER) Pathologist [facility] Iron 42(L) 50 - 150 mcg/dL Comment:Testing performed by : [address] [address] TIBC 249(L) 250 - 400 mcg/dL ABHIJEET Comment:Testing performed by : [address] [address] Transferrin saturation 17(L) 20 - 50 % ABHIJEET Comment:Testing performed by : [address] [address] Blood 08/25/2024 9:15 AM BOOM STICK WORKER 08/25/2024 10:01 AM BOOM STICK WORKER Jasper Baptiste DO LAB BLOOD ORDERABLES Final R esult Performing Organization Address [facility] Co de Phone Number [address] [address] * (ABNORMAL) CBC with auto differential (08/25/2024 9:15 AM BOOM STICK WORKER) WBC 4.9 3.8 - 9.9 K/cumm Comment:Testing performed by : [address] [address] Hgb 11.0(L) 13.0 - 17.5 g/dL ABHIJEET Comment:Testing performed by : [address] [address] Hct 33.6(L) 38.9 - 50.3 % ABHIJEET Comment:Testing performed by : [address] [address] Plt 234 150 - 400 K/cumm ABHIJEET Comment:Testing performed by : [address] [address] MPV 9.4 9.1 - 12.3 fL ABHIJEET Comment:Testing performed by : [address] [address] RBC 3.58(L) 4.30 - 5.80 M/cumm ABHIJEET Comment:Testing performed by : [address] [address] MCV 93.9 81.3 - 96.4 fL ABHIJEET Comment:Testing performed by : [address] [address] MCH 30.7 27.1 - 33.3 pg ABHIJEET Comment:Testing performed by : [address] [address] MCHC 32.7 32.3 - 35.7 g/dL ABHIJEET Comment:Testing performed by : [address] [address] RDW CV 18.4(H) 11.1 - 14.9 % ABHIJEET Comment:Testing performed by : [address] [address] RDW SD 63.8(H) 35.7 - 48.1 fL ABHIJEET Comment:Testing performed by : [address] [address] NRBC abs 0.00 0.00 - 0.01 K/cumm ABHIJEET Comment:Testing performed by : [address] [place] [address] Blood 08/25/2024 9:15 AM BOOM STICK WORKER 08/25/2024 9:17 AM BOOM STICK WORKER Jasper BustillosKamilah Baptiste LAB BLOOD ORDERABLES Final R esult Performing Organization Address [facility]/RUST de Phone Number [address] [address] * Ferritin (08/25/2024 9:15 AM BOOM STICK WORKER) Pathologist [facility] Ferritin 113 30 - 400 ng/mL Comment:Testing performed by : [address] [address] Blood 08/25/2024 9:15 AM BOOM STICK WORKER 08/25/2024 10:01 AM BOOM STICK WORKER Jasper Baptiste LAB BLOOD ORDERABLES Final R esult Performing Organization Address [facility] de Phone Number [address] [address] * (ABNORMAL) Comprehensive metabolic panel (08/25/2024 9:15 AM BOOM STICK WORKER) [facility] Sodium 141 135 - 145 mmol/L Comment:Testing performed by : [address] [address] Potassium, pl 4.0 3.3 - 4.9 mmol/L ABHIJEET Comment:Testing performed by : [address] [address] Chloride 105 97 - 110 mmol/L ABHIJEET Comment:Testing performed by : [address] [address] CO2 26 22 - 32 mmol/L ABHIJEET Comment:Testing performed by : [address] [address] Anion gap 10 2 - 15 mmol/L ABHIJEET Comment:Testing performed by : [address] [address] BUN 5(L) 6 - 25 mg/dL ABHIJEET Comment:Testing performed by : [address] [address] Creatinine 0.90 0.80 - 1.30 mg/dL ABHIJEET Comment:Testing performed by : [address] [address] Glucose 99 70 - 199 mg/dL ABHIJEET Comment: Interpretive Data Fasting glucose >/= 126 mg/dl is diagnostic for diabetes. ?? Fasting is defined as no caloric intake for at least 8 hours. Fasting glucose between 100 mg/dl to 125 mg/dl is diagnostic of prediabetes. In a patient with classic symptoms of hyperglycemia or hyperglycemic crisis, a random glucose >/= 200 mg/dl is diagnostic for diabetes. In the absence of unequivocal hyperglycemia, results should be confirmed by repeat testing. The classification and Diagnosis of Diabetes Diabetes Care 2021; 46: S19-S40. Current interpretive data was last revised 2022. Testing performed by: [address], [address] Calcium 8.7 8.5 - 10.3 mg/dL ABHIJEET Comment:Testing performed by : [address] [address] Bilirubin, total 0.2 0.1 - 1.2 mg/dL ABHIJEET Comment:Testing performed by : [address] [address] Protein, pl 6.4(L) 6.5 - 8.5 g/dL ABHIJEET Comment:Testing performed by : [address] [address] Albumin 3.7 3.5 - 5.0 g/dL ABHIJEET Comment:Testing performed by : [address] [address] Alk phos 76 40 - 130 Units/L ABHIJEET Comment:Testing performed by : [address] [address] ALT 11 7 - 55 Units/L ABHIJEET Comment:Testing performed by : [address], [address] AST 21 10 - 50 Units/L ABHIJEET Comment:Testing performed by : [facility], [address] [place] [address]., [address] Blood 08/25/2024 9:15 AM BOOM STICK WORKER 08/25/2024 9:17 AM BOOM STICK WORKER us Jasper Baptiste DO LAB BLOOD ORDERABLES Final R esult MARANER [address] [facility] Department [place] [address] from Last 3 [place] [address] [facility] MEDICARE MEDICARE Advance Directives For more information, please contact: [phone] Documents on File Type Date Recorded Patient Net Maker Expl anation ADVANCE DIRECTIVE 01/16/2013 12:00 AM DONTRELL Lowe OF INFANTRY [employer] CREWMEMBER FINANCIAL/MEDICAL * Full Code (Latest Code Status on File) Date Activated Date Inactivated Comments 2024 11:37 AM 03/29/2024 4:34 PM * Full Code Date Activated Date Inactivated Comments 11/17/2021 2:31 PM 11/17/2021 8:17 PM * Full Code Date Activated Date Inactivated Comments 07/29/2021 8:06 PM 07/30/2021 1:05 AM Care Teams Shield Runner Relationship Specialty Start Date End Date Ruthie Toussaint MD [address] [place] [address] PCP - General Family Medicine 06/09/24 Jarred Turner MD [address] [place] [address] Consulting Physician Urology 03/20/19 Jasper Baptiste DO [address] [place] [address] Medical Oncologist/Hematologis t Hematology and Oncology 11/12/20 Aicha Johnson MD [address] [place] [address] Consulting Physician Otolaryngology 07/29/21 Avelino Linares MD [address] [place] [address] Consulting Physician Urology 10/27/24
--- OUTSIDE RECORDS SUMMARY | 2024-10-30 11:24 | XMS_ITS | Encounter Summary ---
Author Organization [employer]/[facility] Facility Care Team Providers Care Fitness Assistant Name Role Phone Kevin Barrettkatherin Sparks LPN Unavailable [phone] Gustavo Carter DO Primary Care Pr ovider Gustavo Carter DO Primary Care Pr ovider Jarred Turner MD Unavailable [phone] Jasper Baptiste DO Unavailable [phone] Aicha Johnson MD Unavailable [phone] Ruthie Toussaint MD Primary Care Provider [phone] Avelino Linares MD Unavailable [phone] Encounter Details Date Type Department Care Team (Latest Contact Info) Description 11/12/2016 Orders Only [facility] CLINCONV ProviderFei MD [address] [place] [address] Social History Tobacco Use Types Packs/Day Years Used Date Smoking Tobacco: Former Sex and Gender Information Value Date Recorded Sex Assigned at Not on file Legal Sex Male 4:45 AM MACHINE EGG WASHER Gender Identity Not on file Sexual Orientation Not on file documented as of this encounter Plan of Treatment Not on file documented as of this encounter Procedures Procedure Name Priority Date/Time Associated Diagnosis Comments CARDIOLOGY REPORT 11/19/2016 12: 00 AM MACHINE EGG WASHER CARDIOLOGY REPORT 11/19/2016 12: 00 AM MACHINE EGG WASHER documented in this encounter Results * CARDIOLOGY REPORT (11/19/2016 12:00 AM MACHINE EGG WASHER) Anatomical Region Laterality Modality Other Narrative 11/19/2016 12:00 AM MACHINE EGG WASHER Ordered by an unspecified provider. us Historical Provider CV CARDIAC SERVICES PROCE DURES Final Result * CARDIOLOGY REPORT (11/19/2016 12:00 AM MACHINE EGG WASHER) Anatomical Region Laterality Modality Other Narrative 11/19/2016 12:00 AM MACHINE EGG WASHER Ordered by an unspecified provider. Historical Provider CV CARDIAC SERVICES PROCE DURES Final Result documented in this encounter Visit Diagnoses Not on filedocumented in this encounter Care Teams Fitness Assistant Relationship Specialty Start Date End Date Gustavo Carter DO [address] [facility] [address] [place] [address] PCP - General 02/14/18 06/20/18 Gustavo Carter DO [address] [facility] [address] [place] [address] PCP - General Internal Medicine 06/21/18 01/11/24 Ruthie Toussaint MD [address] [place] [address] PCP - General Family Medicine 06/09/24 Sonja Barrett LPN [address] [facility] [address] [place] [address] Customer Care Manager 01/25/18 01/25/18 Jarred Turner MD [address] [place] [id number] Consulting Physician Urology 03/20/19 Jasper Baptiste DO [facility] [address] Medical Oncologist/Hematologi Hematology and Oncology 11/12/20 Aicha Johnson MD [address] [place] [address] Consulting Physician Otolaryngology 07/29/21 Avelino Linares MD [address] [place] [address] [address] [place] [address] Consulting Physician Urology 10/27/24 documented as of this encounter
--- OUTSIDE RECORDS SUMMARY | 2024-10-30 11:24 | XMS_ITS | Encounter Summary ---
Author Organization [facility] Facility Care Team Providers Care Warp Doffer Name Role Phone Kevin Barrettkatherin Sparks LPN Unavailable [phone] Gustavo Carter DO Primary Care Pr ovider Gustavo Carter DO Primary Care Pr ovider Jarred Turner MD Unavailable [phone] Jasper Baptiste DO Unavailable [phone] Aicha Johnson MD Unavailable [phone] Ruthie Toussaint MD Primary Care Provider [phone] Avelino Linares MD Unavailable [phone] Encounter Details Date Type Department Care Team (Latest Contact Info) Description 11/10/2016 Orders Only [facility] CLINCONV ProviderFei MD [address] [place] [address] Social History Tobacco Use Types Packs/Day Years Used Date Smoking Tobacco: Former Sex and Gender Information Value Date Recorded Sex Assigned at Not on file Legal Sex Male 4:45 AM PICKING CREW SUPERVISOR Gender Identity Not on file Sexual Orientation Not on file documented as of this encounter Plan of Treatment Not on file documented as of this encounter Procedures Procedure Name Priority Date/Time Associated Diagnosis Comments CARDIOLOGY REPORT 11/19/2016 12: 00 AM PICKING CREW SUPERVISOR documented in this encounter Results * CARDIOLOGY REPORT (11/19/2016 12:00 AM PICKING CREW SUPERVISOR) Anatomical Region Laterality Modality Other Narrative 11/19/2016 12:00 AM PICKING CREW SUPERVISOR Ordered by an unspecified provider. us Historical Provider CV CARDIAC SERVICES FAISAL KIRK Final Result documented in this encounter Visit Diagnoses Not on filedocumented in this encounter Care Teams Warp Doffer Relationship Specialty Start Date End Date Gustavo Carter DO [address] [facility] [address] [place] [address] PCP - General 02/14/18 06/20/18 Gustavo Carter DO [address] [facility] [address] [place] [address] PCP - General Internal Medicine 06/21/18 01/11/24 Ruthie Toussaint MD [address] [place] [address] PCP - General Family Medicine 06/09/24 Sonja Barrett LPN [address] [place] [address] [address] [place] [address] Commercial Lines Manager 01/25/18 01/25/18 Jarred Turner MD [address] [address] Consulting Physician Urology 03/20/19 Jasper Baptiste DO [address] [place] [address] Medical Oncologist/Hematologi Hematology and Oncology 11/12/20 Aicha Johnson MD [address] [place] [address] Consulting Physician Otolaryngology 07/29/21 Avelino Linares MD [address] [facility] [address] [place] [address] Consulting Physician Urology 10/27/24 documented as of this encounter
--- OUTSIDE RECORDS SUMMARY | 2024-10-30 11:24 | XMS_ITS | Clinical Summary ---
Author Organization [facility] Address [address] [place] [address]. [place] [address] [place] [address] Care Team Providers Care Nuclear Technician Name Role Phone Jasper Baptiste MD Primary Care Provider [phone] Allergies Active Allergy Reactions Criticality Noted Date Comments Aspirin Unknown High 10/26/2022 Bleeding Clopidogrel Unknown High 10/26/2022 Bleeding Levofloxacin Hives,Rash Medium 10/06/2023 Medications Albuterol Sulfate 108 (90 Base) MCG/ACT AEROSOL POWDER, BREATH ACTIVATED Inhale 1 puff into the lungs as needed. Active ALPRAZolam (XANAX) 1 MG tablet Take 1 tablet (1 mg total) by mouth nightly as needed. FOR ANXIETY 3 Active MULTIPLE VITAMIN-FOLIC ACID OR 1 tablet. Active vitamin C (ASCORBIC ACID) 500 MG Chew Tab chewable tablet Chew 1 tablet (500 mg total) by mouth daily. Active Ascorbic Acid (VITAMIN C) 500 MG Cap Active atorvastatin (LIPITOR) 20 MG tablet 1 tablet (20 mg total). 2 Active clotrimazole (LOTRIMIN) 1 % cream every 12 (twelve) hours. Active ferrous gluconate (FERGON) 324 (38 FE) MG tablet Take 1 tablet (324 mg total) by mouth daily. 2 Active finasteride (PROSCAR) 5 MG tablet Take 1 tablet (5 mg total) by mouth daily. 2 Active gabapentin (NEURONTIN) 300 MG capsule Take 2 capsules (600 mg total) by mouth daily. At night 2 Active HYDROmorphone (DILAUDID) 4 MG tablet Take 1 tablet (4 mg total) by mouth as needed. Active isosorbide mononitrate ER (IMDUR) 30 MG 24 hr tablet Take 2 tablets (60 mg total) by mouth every morning. Active lactulose (CHRONULAC) 10 GM/15ML solution daily. 3 Active metoclopramide (REGLAN) 10 MG tablet Active metoprolol tartrate (LOPRESSOR) 50 MG tablet Take 0.5 tablets (25 mg total) by mouth every 12 (twelve) hours. Active morphine CR (MS CONTIN) 60 MG tablet Take 1 tablet (60 mg total) by mouth 3 (three) times daily. 3 Active nitroglycerin (NITROSTAT) 0.4 MG SL tablet 3 Active omeprazole (PRILOSEC) 40 MG capsule daily. 2 Active PARoxetine (PAXIL) 20 MG tablet Take 1 tablet (20 mg total) by mouth every morning. 3 Active SUMAtriptan (IMITREX) 100 MG tablet TAKE 1 TABLET BY MOUTH ONCE NEEDED FOR MIGRAINE 3 Active tamsulosin (FLOMAX) 0.4 MG Cap daily. Active albuterol (PROVENTIL) (2.5 MG/3ML) 0.083% nebulizer solution USE 1 VIAL PER NEBULIZER 4 TIMES A DAY 3 Active escitalopram (LEXAPRO) 10 MG tablet Take 1 tablet (10 mg total) by mouth daily. Active Doxycycline Hyclate 20 MG Tab Take 1 tablet by mouth every 12 (twelve) hours. on an empty stomach Active buPROPion XL (WELLBUTRIN XL) 150 MG 24 hr tablet Take 1 tablet (150 mg total) by mouth daily. 4 Active Active Problems Problem Noted Date Diagnosed Date Weakness 11/30/2023 Aortic aneurysm 12/23/2022 Encounters Date Type Department Care Team Description 10/19/2024 9:44 AM PRECISION LENS GENERATOR - 10/19/2024 11:59 PM [facility] Hospital Encounter [facility] [address] [place] [id number] Jasper Baptiste MD Discharge Disposition: Home or Self Care (Routine Discharge) 10/19/2024 Orders Only [facility] [address] [place] [address] Jasper Baptiste MD 10/19/2024 Travel 09/19/2024 9:45 AM PRECISION LENS GENERATOR - 09/19/2024 11:59 PM PRECISION LENS GENERATOR Hospital Encounter [facility] [address] [place] [address] Jasper Baptiste MD Discharge Disposition: Home or Self Care (Routine Discharge) 09/19/2024 Orders Only [facility] [address] [place] [address] Jasper Baptiste MD 09/19/2024 Travel from Last 3 Months Social History Tobacco Use Types Packs/Day Years Used Date Smoking Tobacco: Former Cigarettes 0.5 40 1 974 - 2010 Tobacco Cessation:Counseling Given: Not Answered Alcohol Use Standard Drinks/Week Comments Never 0 (1 standard drink = 0.6 oz pur e alcohol) [facility] Utilities Answer Date Recorded In the past 12 months has [facility] [employer], gas, oil, or water [employer] threatened to shut off services in your home? No 11/30/2023 Humiliation, Afraid, Rape, and Kick questionnair e Answer Date Recorded Within the last year, have y ou been afraid of your partner or ex-partner? No 11/30/2023 Within the last year, have y ou been humiliated or emotionally abused in other ways by your partner or ex-partner? No Within the last year, have y ou been kicked, hit, slapped, or otherwise physically hurt by your partner or ex-partner? No 11/30/2023 Within the last year, have y ou been raped or forced to have any kind of sexual activity by your partner or ex-partner? No 11/30/2023 Overall Financial Resource Strain (CARDIA) Answe r Date Recorded How hard is it for you to pa y for the very basics like food, housing, medical care, and heating? Not hard at all 11/30/2023 Hunger Vital Sign Answer Date Recorded Within the past 12 months, y ou worried that your food would run out before you got the money to buy more. Never true 11/30/19 24 Within the past 12 months, t he food you bought just didn't last and you didn't have money to get more. Never true 11/30/2023 PRAPARE - Transportation Answer Date Re corded In the past 12 months, has l ack of transportation kept you from medical appointments or from getting medications? No 11/05 In the past 12 months, has l ack of transportation kept you from meetings, work, or from getting things needed for daily living? No 11/30/2023 Housing Stability Vital Sign Answer Manny e Recorded In the last 12 months, was t here a time when you were not able to pay the mortgage or rent on time? No 11/30/2023 In the last 12 months, how many places have you lived? 1 11/30/2023 In the last 12 months, was t here a time when you did not have a steady place to sleep or slept in a [place] [facility] [place] (including now)? No 11/30/2023 Sex and Gender Information Value Date Recorded Sex Assigned at Male 10/19/2024 9:41 AM PRECISION LENS GENERATOR Legal Sex Male 4:29 PM CDT Gender Identity Not on file Sexual Orientation Not on file Last Filed Vital Signs Vital Sign Reading Time Taken Comments Blood Pressure 110/77 04/01/2024 11:00 PM CDT Pulse 90 04/01/2024 10:55 PM CDT Temperature 36.7 ??C (98.1 ??F) 04/01/2024 9:20 PM CD T Respiratory Rate 25 04/01/2024 11:00 PM CDT Oxygen Saturation 96% 04/01/2024 11:00 PM CDT Inhaled Oxygen Concentration - - Weight 73.5 kg (162 lb) 04/01/2024 9:20 PM CDT Height 182.9 cm (6') 04/01/2024 9:20 PM CDT Body Mass Index 21.97 04/01/2024 9:20 PM CDT Plan of Treatment Upcoming Encounters Date Type Department Care Team (Late st Contact Info) Description 12/19/2024 10:15 AM CDT Office Visit [facility] [address] [place] [address] Jasper Byrd MD [facility]. [address] [place] [address] Health Maintenance Due Date Last Done Comments ASCVD Statin 1961 Colorectal Cancer Screening Colonoscopy (10 Years) 1961 Annual Physical 1964 Hepatitis C 1979 Zoster Vaccines (3 of 3) 10/28/2022 022, 08/16/2016, 10/04/2015 COVID-19 Vaccine ( season) 2024 08/25/2021, 01/08/2021, 12/11/2020 Influenza Adult (#1) 2024 07/21/2021, 07/02/2020, 06/22/2019, Additional history exists Lung Cancer Screening 09/20/2025 09/20/2024 , 06/30/2024, 08/05/2023, Additional history exists DTaP, Tdap and Td Vaccines (2 - Td or Tdap) 03/03/2029 03/03/2019 RSV Immunization or 60+ Years (1 - 1-dose 75+ series) 2036 Pneumococcal Vaccine: Pediatrics (0 to 5 Years) and At-Risk Patients (6 to 64 Years) Aged Out 09/02/2022, 10/04/2015, 08/19/2015, Additional history exists No longer eligible based on patient's age to complete this topic Meningococcal B Vaccine Aged Out No l onger eligible based on patient's age to complete this topic Meningococcal Vaccine Aged Out No caden grey eligible based on patient's age to complete this topic RSV Immunizations Under 20 Months Aged Out No longer eligible based on patient's age to complete this topic Procedures Procedure Name Priority Date/Time Associated Diagnosis Comments RETICULOCYTE CT, AUTO Routine 10/19/2024 9:50 AM PRECISION LENS GENERATOR 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) CBC W/DIFF AUTOMATED Routine 10/19/2024 9:50 AM PRECISION LENS GENERATOR 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) FERRITIN Routine 10/19/2024 9:50 AM PRECISION LENS GENERATOR 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) RETICULOCYTE CT, AUTO Routine 09/19/2024 9:52 AM PRECISION LENS GENERATOR 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 chronic blood loss CBC W/DIFF AUTOMATED Routine 09/19/2024 9:52 AM PRECISION LENS GENERATOR 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 chronic blood loss FERRITIN Routine 09/19/2024 9:52 AM PRECISION LENS GENERATOR 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 chronic blood loss CT CHEST W CON Routine 08/05/2023 10:08 AM CDT 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 RETICULOCYTE COUNT 2.1 0.4 - 3.8 % 10/19/2024 10:13 AM PRECISION LENS GENERATOR [facility] ABSOLUTE RETICULOCYTE 0.08 0.02 - 0.13 x10'6/uL 10/19/2024 10:13 AM PRECISION LENS GENERATOR [facility] IMMATURE RETIC FRACTION 14.7(H) 2.3 - 13.4 % 10/19/2024 10:13 AM PRECISION LENS GENERATOR [facility] RETIC HGB 33.4 28.2 - 36.6 PG 10/19/2024 10:13 AM PRECISION LENS GENERATOR [facility] 10/19/2024 9:50 AM PRECISION LENS GENERATOR us Jasper Baptiste MD LABORATORY Final Result [facility] [address] [place] [address] [place] [address], * (ABNORMAL) CBC W/DIFF AUTOMATED (10/19/2024 9:50 AM [facility]) Only the most recent of2 resultswithin the time period is included. WBC 7.10 4.50 - 11.00 x10'3/uL 10/19/2024 10:13 AM [facility] RBC 3.75(L) 4.50 - 5.90 x10'6/uL 10/19/2024 10:13 AM [facility] HGB 11.8(L) 14.0 - 18.0 G/DL 10/19/2024 10:13 AM [facility] HCT 36.0(L) 43.0 - 54.0 % 10/19/2024 10:13 AM [facility] MCV 96.0 80.0 - 100.0 FL 10/19/2024 10:13 AM [facility] MCH 31.5 26.0 - 34.0 PG 10/19/2024 10:13 AM [facility] MCHC 32.8 31.0 - 37.0 G/DL 10/19/2024 10:13 AM [facility] RDW 15.6(H) 11.6 - 14.8 % 10/19/2024 10:13 AM [facility] PLT 263 130 - 400 x10'3/uL 10/19/2024 10:13 AM [facility] MPV 9.8 7.0 - 12.0 FL 10/19/2024 10:13 AM [facility] CBC COMMENT AUTOMATED RBC MORPHOLOGY AND PLATELET EVALUATION NORMAL 10/19/2024 10:13 AM [facility] NEUTROPHILS % 65.4 40.0 - 74.0 % 10/19/2024 10:13 AM [facility] LYMPHOCYTES % 20.8 14.0 - 46.0 % 10/19/2024 10:13 AM [facility] MONOCYTES % 9.7 4.0 - 13.0 % 10/19/2024 10:13 AM [facility] EOSINOPHILS 3.0 0.0 - 7.0 % 10/19/2024 10:13 AM [facility] BASOPHILS 0.8 0.0 - 3.0 % 10/19/2024 10:13 AM [facility] IMMATURE GRANS % 0.3 0.0 - 0.43 % 10/19/2024 10:13 AM [facility] NRBC % 0.0 % 10/19/2024 10:13 AM [facility]. NEUTROPHILS TOTAL 4.64 1.69 - 7.81 x10'3/uL 10/19/2024 10:13 AM [facility] ABS. LYMPHOCYTES 1.48 0.21 - 5.42 x10'3/uL 10/19/2024 10:13 AM [facility] ABS. MONOCYTES 0.69 0.04 - 1.37 x10'3/uL 10/19/2024 10:13 AM [facility] ABS. EOSINOPHILS 0.21 0.00 - 0.68 x10'3/uL 10/19/2024 10:13 AM [facility] ABS. BASOPHILS 0.06 0.00 - 0.08 x10'3/uL 10/19/2024 10:13 AM [facility] ABS. IMMATURE GRANULOCYTES 0.02 0.00 - 0.06 x10'3/uL 10/19/2024 10:13 AM [facility] ABS. NUCLEATED RBC'S 0.00 0.00 - 0.01 x10'3/uL 10/19/2024 10:13 AM [facility] 10/19/2024 9:50 AM PRECISION LENS GENERATOR us Jasper Baptiste MD LABORATORY Final Result [facility] [address] [place] [address], [place] * FERRITIN (10/19/2024 9:50 AM PRECISION LENS GENERATOR) Only the most recent of2 resultswithin the time period is included. FERRITIN 38.6 8.0 - 388.0 NG/ML 10/19/2024 3:33 PM PRECISION LENS GENERATOR [facility] 10/19/2024 9:50 AM PRECISION LENS GENERATOR us Jasper Baptiste MD LABORATORY Final Result [facility] [address] [place] [address], from Last 3 Months Insurance MEDICARE MEDICAID Advance Directives * Full Code (Latest Code Status on File) Date Activated Date Inactivated Comments 11/30/2023 8:34 PM 12/02/2023 3:57 PM Care Teams Nuclear Technician Relationship Specialty Start Date End Date Jasper Baptiste MD [facility] [address] MEDICAL OFFICE BUILDING [address] [place] [address] PCP - General INTERNAL MEDICINE 11/26/21
--- OUTSIDE RECORDS SUMMARY | 2024-10-30 11:24 | XMS_ITS | Encounter Summary ---
Author Organization [facility] Facility Care Team Providers Care Military Pilot Name Role Phone Kevin Barrettkatherin Sparks LPN Unavailable [phone] Gustavo Carter DO Primary Care Pr ovider Gustavo Carter DO Primary Care Pr ovider Jarred Turner MD Unavailable [phone] Jasper Baptiste DO Unavailable [phone] Aicha Johnson MD Unavailable [phone] Ruthie Toussaint MD Primary Care Provider [phone] Avelino Linares MD Unavailable [phone] Encounter Details Date Type Department Care Team (Latest Contact Info) Description 10/12/2016 Orders Only [facility]IN[facility] ProviderFei MD [address] [place] [address] Social History Tobacco Use Types Packs/Day Years Used Date Smoking Tobacco: Former Sex and Gender Information Value Date Recorded Sex Assigned at Not on file Legal Sex Male 4:45 AM CRA OFFICER Gender Identity Not on file Sexual Orientation Not on file documented as of this encounter Plan of Treatment Not on file documented as of this encounter Procedures Procedure Name Priority Date/Time Associated Diagnosis Comments SCAN - LABS 10/29/2016 12:00 AM CRA OFFICER documented in this encounter Results * SCAN - LABS (10/29/2016 12:00 AM CRA OFFICER) Narrative 10/29/2016 12:00 AM CRA OFFICER Ordered by an unspecified provider. us Historical Provider Final Res ult documented in this encounter Visit Diagnoses Not on filedocumented in this encounter Care Teams Military Pilot Relationship Specialty Start Date End Date Gustavo Carter DO [address] [facility] [address] [place] [address] PCP - General 02/14/18 06/20/18 Gustavo Carter DO [address] [facility] [address] [place] [address] PCP - General Internal Medicine 06/21/18 01/11/24 Ruthie Toussaint MD [address] [place] [address] PCP - General Family Medicine 06/09/24 Sonja Barrett LPN [address] [place] [address] [address] [place] [address] Professional Services Specialist 01/25/18 01/25/18 Jarred Turner MD [address] [place] [address] Consulting Physician Urology 03/20/19 Jasper Baptiste DO [address] [place] [address] Medical Oncologist/Hematologi Hematology and Oncology 11/12/20 Aicha Johnson MD [address] [place] [address] Consulting Physician Otolaryngology 07/29/21 Avelino Linares MD [address] [facility] [address] [place] [address] Consulting Physician Urology 10/27/24 documented as of this encounter
--- OUTSIDE RECORDS SUMMARY | 2024-10-30 11:24 | XMS_ITS | Encounter Summary ---
Author Organization [facility] Facility Care Team Providers Care Amusement Or Recreation Card Checker Name Role Phone MilviacortneyGustavo DO Primary Care Pr ovider Jarred Turner MD Unavailable [phone] Jasper Baptiste DO Unavailable [phone] Aicha Johnson MD Unavailable [phone] Ruthie Toussaint MD Primary Care Provider [phone] Avelino Linares MD Unavailable [phone] Encounter Details Date Type Department Care Team (Latest Contact Info) Description 08/11/2018 Orders Only [facility] CLINCONV Provider, MD Fei [facility] [address] Social History Tobacco Use Types Packs/Day Years Used Date Smoking Tobacco: Former Smokeless Tobacco: Never Sex and Gender Information Value Date Recorded Sex Assigned at Not on file Legal Sex Male 4:45 AM BRIQUETTING MACHINE OPERATOR Gender Identity Not on file Sexual Orientation Not on file documented as of this encounter Plan of Treatment Not on file documented as of this encounter Procedures Procedure Name Priority Date/Time Associated Diagnosis Comments SCAN - LABS 08/15/2018 12:00 AM BRIQUETTING MACHINE OPERATOR documented in this encounter Results * SCAN - LABS (08/15/2018 12:00 AM BRIQUETTING MACHINE OPERATOR) Narrative 08/15/2018 12:00 AM BRIQUETTING MACHINE OPERATOR Ordered by an unspecified provider. us Historical Provider Final Res ult documented in this encounter Visit Diagnoses Not on filedocumented in this encounter Care Teams Amusement Or Recreation Card Checker Relationship Specialty Start Date End Date Gustavo Carter DO [address] [facility] [address] [place] [address] PCP - General Internal Medicine 06/21/18 01/11/24 Ruthie Toussaint MD [address] [place] [address] PCP - General Family Medicine 06/09/24 Jarred Turner MD [address] [place] [address] Consulting Physician Urology 03/20/19 Jasper Baptiste DO [address] [place] [address] [address] [place] [address] Medical Oncologist/Hematologi Hematology and Oncology 11/12/20 Aicha Johnson MD [address] [place] [address] Consulting Physician Otolaryngology 07/29/21 Avelino Linares MD [address] [facility] 200 [place], [place] [id number] Consulting Physician Urology 10/27/24 documented as of this encounter
--- OUTSIDE RECORDS SUMMARY | 2024-10-30 11:24 | XMS_ITS | Encounter Summary ---
Author Organization [facility] Facility Care Team Providers Care Brake Repair Supervisor Name Role Phone Kevin Barrettkatherin Sparks LPN Unavailable [phone] Gustavo Carter DO Primary Care Pr ovider Gustavo Carter DO Primary Care Pr ovider Jarred Turner MD Unavailable [phone] Jasper Baptiste DO Unavailable [phone] Aicha Johnson MD Unavailable [phone] Ruthie Toussaint MD Primary Care Provider [phone] Avelino Linares MD Unavailable [phone] Encounter Details Date Type Department Care Team (Latest Contact Info) Description 01/23/2018 Orders Only [facility] CLINCONV ProviderFei MD [address] [place] [address] Social History Tobacco Use Types Packs/Day Years Used Date Smoking Tobacco: Former Sex and Gender Information Value Date Recorded Sex Assigned at Not on file 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 us Historical Provider [facility] FAISLA KIRK Final Result documented in this encounter Visit Diagnoses Not on filedocumented in this encounter Care Teams Brake Repair Supervisor Relationship Specialty Start Date End Date Gustaov Carter DO [address] [facility] [address] [place] [address] PCP - General 02/14/18 06/20/18 Gustavo Carter DO [address] [facility] [address] [place] [address] PCP - General Internal Medicine 06/21/18 01/11/24 Ruthie Toussaint MD [address] [place] [address] PCP - General Family Medicine 06/09/24 Sonja Barrett LPN [address] [facility] 300 [place] [address] Scale Expert 01/25/18 01/25/18 Jarred Turner MD [address] [id number] Consulting Physician Urology 03/20/19 Jasper Baptiste DO [address] [place] [address] Medical Oncologist/Hematologi Hematology and Oncology 11/12/20 Aicha Johnson MD [address] [place] [address] Consulting Physician Otolaryngology 07/29/21 Avelino Linares MD [address] [facility] 200 [place] [address] Consulting Physician Urology 10/27/24 documented as of this encounter
--- OUTSIDE RECORDS SUMMARY | 2024-10-30 11:24 | XMS_ITS | Encounter Summary ---
Author Organization [facility] Address [address] [place] [address] Phone Care Team Providers Care Rn Document Improvement Name Role Phone AdyconchitaGustavo DO Primary Care Pr ovider Jarred Turner MD Unavailable [phone] Jasper Baptiste DO Unavailable [phone] Aicha Johnson MD Unavailable [phone] Ruthie Toussaint MD Primary Care Provider [phone] Avelino Linares MD Unavailable [phone] Encounter Details Date Type Department Care Team (Latest Contact Info) Description 12/04/2019 Orders Only [facility] Scanning, Provider Social History Tobacco Use Types Packs/Day Years Used Date Smoking Tobacco: Former Smokeless Tobacco: Never Alcohol Use Standard Drinks/Week Comments Not Currently 0 (1 standard drink = 0.6 oz pur e alcohol) Sex and Gender Information Value Date Recorded Sex Assigned at Not on file 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 Gender Identity Not on file Sexual Orientation Not on file documented as of this encounter Plan of Treatment Not on file documented as of this encounter Procedures Procedure Name Priority Date/Time Associated Diagnosis Comments SCAN - RADIOLOGY/IMAGING 12/04/2019 documented in this encounter Results * SCAN - RADIOLOGY/IMAGING (12/04/2019) Anatomical Region Laterality Modality Other us Provider Scanning Final Result documented in this encounter Visit Diagnoses Not on filedocumented in this encounter Care Teams Rn Document Improvement Relationship Specialty Start Date End Date Gustavo Carter DO [address] [facility] [address] [place] [address] PCP - General Internal Medicine 06/21/18 01/11/24 Ruthie Toussaint MD [address] [place] [address] PCP - General Family Medicine 06/09/24 Jarred Turner MD [address] [place] [address] Consulting Physician Urology 03/20/19 Jasper Baptiste DO [address] [place] [address] [address] [place] [address] Medical Oncologist/Hematologi Hematology and Oncology 11/12/20 Aicha Johnson MD [address] [place] [address] Consulting Physician Otolaryngology 07/29/21 Avelino Linares MD [address] [facility] [address] [place] [address] Consulting Physician Urology 10/27/24 documented as of this encounter
--- OUTSIDE RECORDS SUMMARY | 2024-10-30 11:24 | XMS_ITS | Encounter Summary ---
Author Organization [facility] Facility Care Team Providers Care Meat Stock Clerk Name Role Phone Kevin Barrettkatherin Sparks LPN Unavailable [phone] Gustavo Carter DO Primary Care Pr ovider Gustavo Carter DO Primary Care Pr ovider Jarred Turner MD Unavailable [phone] Jasper Baptiste DO Unavailable [phone] Aicha Johnson MD Unavailable [phone] Ruthie Toussaint MD Primary Care Provider [phone] Avelino Linares MD Unavailable [phone] Encounter Details Date Type Department Care Team (Latest Contact Info) Description 01/22/2018 Orders Only [facility] CLINCONV ProviderFei MD [address] [place] [address] Social History Tobacco Use Types Packs/Day Years Used Date Smoking Tobacco: Former Sex and Gender Information Value Date Recorded Sex Assigned at Not on file 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 Gender Identity Not on file Sexual Orientation [...] on filedocumented in this encounter Care Teams Meat Stock Clerk Relationship Specialty Start Date End Date Gustavo Carter DO [address] [facility] [address] [place] [address] PCP - General 02/14/18 06/20/18 Gustavo Carter DO [address] [facility] [address] [place] [address] PCP - General Internal Medicine 06/21/18 01/11/24 Ruthie Toussaint MD [address] [place] [address] PCP - General Family Medicine 06/09/24 Sonja Barrett LPN [address] [facility] 300 [place] [address] Bottom Buffer 01/25/18 01/25/18 Jarred Turner MD [address] [id number] Consulting Physician Urology 03/20/19 Jasper Baptiste DO [address] [place] [address] Medical Oncologist/Hematologi Hematology and Oncology 11/12/20 Aicha Johnson MD [address] [place] [address] Consulting Physician Otolaryngology 07/29/21 Avelino Linares MD [address] [facility] [address] [place] [address] Consulting Physician Urology 10/27/24 documented as of this encounter
--- OUTSIDE RECORDS SUMMARY | 2024-10-30 11:24 | XMS_ITS | Encounter Summary ---
Author Organization [facility] Address [address] [place] [address] Phone Care Team Providers Care Probate Paralegal Name Role Phone Jarred Turner MD Unavailable [phone] Jasper Baptiste DO Unavailable [phone] Aicha Johnson MD Unavailable Ruthie Toussaint MD Primary Care Provider [phone] Avelino Linares MD Unavailable [phone] Encounter Details Date Type Department Care Team (Late st Contact Info) Description 10/29/2024 Orders Only [facility] Pulmonary [address] [facility] Advanced Medicine 8th [place] [address] [place] [address] Ramon Schulte MD [address] [place] [address] HHT (hereditary hemorrhagic telangiectasia) (HCC) (Primary Dx); Chronic cough Social History Tobacco Use Types Packs/Day Years Used Date Smoking Tobacco: Former Cigarettes 0.5 40 1 4 - 2010 Smokeless Tobacco: Never Alcohol Use Standard Drinks/Week [...] on file 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 Gender Identity Not on file Sexual Orientation Not on file documented as of this encounter Plan of Treatment Scheduled Orders Name Type Priority Associated Diagnoses Orde r Schedule XR Chest Pa Lateral 2 Views Imaging Schedule Routine, Read Routine (OP Routine) 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 Expected: 11/05/2024, Expires: 12/27/2024 documented as of this encounter Visit Diagnoses Diagnosis 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 Chronic cough Cough documented in this encounter Care Teams Probate Paralegal Relationship Specialty Start Date End Date Ruthie Toussaint MD [address] [place] [address] PCP - General Family Medicine 06/09/24 Jarred Turner MD [address] [address] Consulting Physician Urology 03/20/19 Jasper Baptiste DO [address] [place] [address] Medical Oncologist/Hematologis t Hematology and Oncology 11/12/20 Aicha Johnson MD [address] [place] [address] Consulting Physician Otolaryngology 07/29/21 Avelino Linares MD [address] [facility] [address] [place] [id number] Consulting Physician Urology 10/27/24 documented as of this encounter
--- OUTSIDE RECORDS SUMMARY | 2024-10-30 11:24 | XMS_ITS | Encounter Summary ---
Author Organization [facility] Address [address] [place] [address] Phone Care Team Providers Care Shovel Mechanic Name Role Phone AdyconchitaGustavo DO Primary Care Pr ovider Jarred Turner MD Unavailable [phone] Jasper Baptiste DO Unavailable [phone] Aicha Johnson MD Unavailable [phone] Ruthie Toussaint MD Primary Care Provider [phone] Avelino Linares MD Unavailable [phone] Encounter Details Date Type Department Care Team (Latest Contact Info) Description 01/20/2022 Orders Only [facility] Scanning, Provider Social History Tobacco Use Types Packs/Day Years Used Date Smoking Tobacco: Former Cigarettes 0.5 40 1 974 - 2011 Smokeless Tobacco: Never Alcohol Use Standard Drinks/Week Comments Not Currently 0 (1 standard drink = 0.6 oz pur e alcohol) AUDIT-C Answer Date Recorded Q1: How often do you have a drink containing alc ohol? 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 Gender Identity Not on file Sexual Orientation Not on file documented as of this encounter Plan of Treatment Not on file documented as of this encounter Procedures Procedure Name Priority Date/Time Associated Diagnosis Comments SCAN - LABS 01/20/2022 documented in this encounter Results * SCAN - LABS (01/20/2022) us Provider Scanning Final Result documented in this encounter Visit Diagnoses Not on filedocumented in this encounter Care Teams Shovel Mechanic Relationship Specialty Start Date End Date Gustavo Carter DO [address] [facility] [address] [place] [address] PCP - General Internal Medicine 06/21/18 01/11/24 Ruthie Toussaint MD [address] [place] [address] PCP - General Family Medicine 06/09/24 Jarred Turner MD [address] [place] [address] Consulting Physician Urology 03/20/19 Jasper Baptiste DO [address] [place] [address] Medical Oncologist/Hematologi Hematology and Oncology 11/12/20 Aicha Johnson MD [address] [place] [address] Consulting Physician Otolaryngology 07/29/21 Avelino Linares MD [address] [facility] [address] [facility] 200 [place] [address] Consulting Physician Urology 10/27/24 documented as of this encounter
--- OUTSIDE RECORDS SUMMARY | 2024-10-30 11:24 | XMS_ITS | Encounter Summary ---
Author Organization [facility] Facility Care Team Providers Care Program Therapist Name Role Phone Kevin Barrettkatherin Sparks LPN Unavailable [phone] Gustavo Carter DO Primary Care Pr ovider Gustavo Carter DO Primary Care Pr ovider Jarred Turner MD Unavailable [phone] Jasper Baptiste DO Unavailable [phone] Aicha Johnson MD Unavailable [phone] Ruthie Toussaint MD Primary Care Provider [phone] Avelino Linares MD Unavailable [phone] Encounter Details Date Type Department Care Team (Latest Contact Info) Description 01/21/2018 Orders Only [facility]IN[facility] ProviderFei MD [address] [place] [address] Social History Tobacco Use Types Packs/Day Years Used Date Smoking Tobacco: Former Sex and Gender Information Value Date Recorded Sex Assigned at Not on file 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 us Historical Provider Final Res ult * CARDIOLOGY REPORT (02/07/2018 12:00 AM CDT) Anatomical Region Laterality Modality Other Narrative 02/07/2018 12:00 AM CDT Ordered by an unspecified provider. Historical Provider [facility] PROCE REAGAN Final Result documented in this encounter Visit Diagnoses Not on filedocumented in this encounter Care Teams Program Therapist Relationship Specialty Start Date End Date Gustavo Carter DO [address] [facility] [address] [place] [address] PCP - General 02/14/18 06/20/18 Gustavo Carter DO [address] [facility] [address] [place] [address] PCP - General Internal Medicine 06/21/18 01/11/24 Ruthie Toussaint MD [address] [place] [address] PCP - General Family Medicine 06/09/24 Sonja Barrett LPN [address] [facility] [address] [place] [address] Crop Roller 01/25/18 01/25/18 Jarred Turner MD [address] [place] [id number] Consulting Physician Urology 03/20/19 Jasper Baptiste DO [facility] [address] Medical Oncologist/Hematologi Hematology and Oncology 11/12/20 Aicha Johnson MD [address] [place] [address] Consulting Physician Otolaryngology 07/29/21 Avelino Linares MD [address] [facility] [address] [place] [address] 200 [place] [address] Consulting Physician Urology 10/27/24 documented as of this encounter
--- OUTSIDE RECORDS SUMMARY | 2024-10-30 11:24 | XMS_ITS | Clinical Summary ---
Author Organization [facility] 8 [facility] Address [address] [facility] [address] [place] [address] Phone Care Team Providers Care Manager Pricing Name Role Phone Jarred Turner MD Unavailable [phone] Jasper Baptiste DO Unavailable [phone] Aicha Johnson MD Unavailable [phone] Ruthie Toussaint MD Primary Care Provider [phone] Avelino Linares MD Unavailable [phone] Allergies Active Allergy Reactions Criticality Noted Date [...] A DAY 180 tablet 2 024 Active OneTouch Ultra Test strip USE TO CHECK BLOOD SUGAR BEFORE MEALS OR AT BEDTIME Active OneTouch Delica Plus Lancet 33 gauge misc USE TO CHECK SUGAR BEFORE MEALS OR AT BEDTIME Active albuterol 2.5 mg /3 mL (0.083 %) nebulizer solutionIndicatio ns:Centrilobular emphysema (HCC) TAKE 3 ML (2.5 MG TOTAL) BY NEBULIZATION 4 (FOUR) TIMES A DAY 375 mL 5 Active ascorbate calcium, vitamin C, 500 mg tablet Take 1 tablet by mouth daily 30 tablet Active gabapentin (NEURONTIN) 300 mg capsuleIndication s:Gvavo-Npjhi-Ywt du disease (HCC) TAKE 2 CAPSULES BY MOUTH EVERY DAY AT NIGHT 180 capsule 1 Active atorvastatin (LIPITOR) 20 mg tablet TAKE 1 TABLET BY MOUTH EVERY DAY 90 tablet 1 Active js-tpk-lbrof-K1-l ycopen-lutein 470-83-406-300 mcg tablet Take 1 tablet/capsule by mouth daily Active isosorbide mononitrate ER (IMDUR) 60 mg 24 hr tabletIndications :Coronary artery disease involving chevak coronary artery of chevak heart with angina pectoris (HCC),Dyspnea, unspecified type Take 1 tablet (60 mg total) by mouth daily 90 tablet 1 Active ferrous sulfate 325 mg (65 mg of elemental iron) tablet TAKE 1 TABLET BY MOUTH 3 TIMES A DAY WITH MEALS. 270 tablet 1 Active mirtazapine (REMERON) 7.5 mg tablet TAKE 1 TABLET BY MOUTH EVERY DAY NIGHTLY 90 tablet Active omeprazole (PriLOSEC) 40 mg capsule TAKE 1 CAPSULE BY MOUTH EVERY DAY 90 capsule Active albuterol HFA (PROVENTIL HFA,VENTOLIN HFA,PROAIR HFA) 90 mcg/actuation inhaler INHALE 2 PUFFS BY MOUTH EVERY 6 HOURS NEEDED FOR WHEEZING 18 each 6 Active tranexamic acid (LYSTEDA) 650 mg tablet Take 1 tablet (650 mg total) by mouth 2 (two) times a day 10 tablet Active morphine ER (MS CONTIN) 60 mg [...] management of unspecified implanted device 07/19/2024 A-fib ([facility]) 2024 Atrial fibrillation ([facility]) 02/18/2024 Simple chronic bronchitis 09/06/2023 Pulmonary air trapping 04/27/2023 Iron deficiency anemia due to chronic blood loss 03/18/2023 Epistaxis 06/12/2021 Cigarette nicotine dependence in remission 06/18 Personal history of thromboembolic disease 06/01 Anxiety 06/01/2019 Non-seasonal allergic rhinitis due to pollen Multiple pulmonary nodules 06/01/2019 Chronic cough 06/01/2019 Shortness of breath 06/01/2019 Centrilobular emphysema 06/01/2019 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 CAD (coronary artery disease) 11/03/2016 Thoracic aortic aneurysm without rupture 012 Encounters Date Type Department Care Team Description 10/29/2024 Orders Only [facility] Pulmonary [address] 8th [place] [address] [place] [address] Ramon Schulte MD HHT (hereditary hemorrhagic telangiectasia) ([facility]) (Primary Dx); Chronic cough 10/27/2024 1:30 PM EGG SEPARATOR Office Visit [facility] Oncology [address] [place] [address] [address] [place] [phone] Jasper Baptiste, HHT (hereditary hemorrhagic telangiectasia) (CMS/HCC) (HCC); Iron deficiency anemia due to chronic blood loss; Simple chronic bronchitis (HCC); Atrial fibrillation, persistent (HCC) 10/27/2024 12:30 PM EGG SEPARATOR Lab [facility] at [address] [address] HHT (hereditary hemorrhagic telangiectasia) (CMS/HCC) (HCC); Iron deficiency anemia due to chronic blood loss; Hereditary hemorrhagic telangiectasia (HCC); Abnormal findings on diagnostic imaging of other specified body structures 10/23/2024 Orders Only [facility] Oncology [address] [place] [phone] Lillian Red RN Hereditary hemorrhagic telangiectasia (HCC) (Primary Dx); Abnormal findings on diagnostic imaging of other specified body structures 10/19/2024 Orders Only [facility] Oncology [address] [place] [phone] Jasper Baptiste DO 10/19/2024 Telephone [facility] [address] [place] [phone] Majo Collins CMA 09/25/2024 Telephone [facility]cology [address] [place] [phone] Judy Castillo RN 09/20/2024 1:12 PM EGG SEPARATOR - 09/20/2024 11:59 PM EGG SEPARATOR Hospital Encounter [facility] [address] [place] [address] HHT (hereditary hemorrhagic telangiectasia) (CMS/HCC) (HCC); Iron deficiency anemia due to chronic blood loss; Pulmonary nodules; Thoracic aortic aneurysm without rupture, unspecified part (HCC); Liver lesion, left lobe; Liver lesion, right lobe Discharge Disposition: Discharge to home or self care 09/20/2024 Orders Only [facility] On[facility] [address] [place] [address] Fei Lowe MD 09/19/2024 Orders Only [facility] Oncology [address] [place] [address] [address] [place] [phone] Fei Lowe MD 09/13/2024 10:30 AM EGG SEPARATOR Office Visit [facility] [address] [facility] [address] [place] [address] Yvonne Grigsby NP CAD in chevak artery (Primary Dx); Atrial fibrillation, persistent (HCC); Presence of Watchman left atrial appendage closure device; Hyperlipidemia, unspecified hyperlipidemia type; Tobacco abuse 09/13/2024 Telephone [facility] [address] [facility] [address] [address] [place] [phone] Peterson Dawson MD 08/25/2024 10:15 AM EGG SEPARATOR Office Visit [facility] On[facility] [address] [place] [address] [address] [place] [phone] Jasper Baptiste, HHT (hereditary hemorrhagic telangiectasia) (CMS/HCC) (HCC) (Primary Dx); Iron deficiency anemia due to chronic blood loss; Pulmonary nodules; Thoracic aortic aneurysm without rupture, unspecified part (HCC); Liver lesion, left lobe; Liver lesion, right lobe 08/25/2024 9:15 AM EGG SEPARATOR Lab [facility] at [facility] [address] [place] [address] Iron deficiency anemia due to chronic blood loss 08/25/2024 Orders Only [facility] Pulmonary [address] 8th [place] [address] [place] [address] Zenobia Le, BRIJESH HHT (hereditary hemorrhagic telangiectasia) (HCC) (Primary Dx); 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) 08/15/2024 10:30 AM EGG SEPARATOR Office Visit [facility] [address] [facility] [address] [place] [address] Hi Reynolds MD Multiple pulmonary nodules (Primary Dx); Chronic cough; Cigarette nicotine dependence in remission; HHT (hereditary hemorrhagic telangiectasia) (CMS/HCC) (HCC); Anxiety; Non-seasonal allergic rhinitis due to pollen; Centrilobular emphysema (HCC); Simple chronic bronchitis (HCC); Atrial fibrillation, unspecified type (HCC); Pulmonary air trapping 08/01/2024 12:45 PM CDT Infusion [facility] at [address] [place] [address] Iron deficiency anemia due to chronic blood loss (Primary Dx); Encounter for adjustment and management of unspecified implanted device from Last 3 Months Immunizations Name Administration Dates Next Due Influenza, Quadrivalent, Spl it, Preservative Free, Intramuscular 07/21/2021,07/02/2020,06/22/2019 Influenza, Unspecified 07/13/2018 Moderna SARS-CoV-2 Monovalen t Vaccination (12+ YRS) 08/25/2021,01/08/2021,12/11/2020 Pneumococcal Conjugate PCV 13 10/04/2015 Pneumococcal Conjugate Pcv20 09/02/2022 Tdap 03/03/2019 ZOSTER LIVE 10/04/2015 ZOSTER Recombinant 09/02/2022 Surgical History Surgery Date Site/Laterality Comments LEG SURGERY 10/04/2007 - 10/03/2008 Bilateral clots in both legs, clean out old blood COLONOSCOPY NASAL ENDOSCOPY 07/29/2021 nasal endoscopy with cauterization FUNCTIONAL ENDOSCOPIC SINUS SURGERY 09/03/2021 - 10/03/2021 SINUS SURGERY 09/02/2023 Medical History Medical History Date Comments Coronary artery disease Aortic aneurysm (HCC) Pulmonary embolism (HCC) Lung nodules Hypertension Seasonal allergies COPD (chronic obstructive pulmonary disease) (HC C) Anxiety Heart disease DVT (deep venous thrombosis) (CMS/HCC) (HCC) Uxper-Fhlrj-Qzdun disease (HCC) Epistaxis HHT (hereditary hemorrhagic telangiectasia) (HCC ) Chronic, continuous use of opioids Bleeding disorder (CMS/HCC) (HCC) Diabetes mellitus (HCC) Family History Medical History Relation Name Comments Hypertension Brother Heart attack Father Hereditary Hemorrhagic Telangiectasia (HHT) Father Hypertension Father Stroke Father Hypertension Maternal Grandfather Stroke Maternal Grandfather Stroke Maternal Grandmother Cancer Mother Diabetes Mother Hypertension Mother Stroke Mother Hereditary Hemorrhagic Telangiectasia (HHT) Paternal G randfather Hypertension Sister Hereditary Hemorrhagic Telangiectasia (HHT) Son Anesthesia problems Neg Hx Relation Name Status Comments Brother Father Maternal Grandfather Maternal Grandmother Mother Paternal Grandfather Sister Son Social History Tobacco Use Types Packs/Day Years [...] on file Legal Sex Male 4:45 AM EGG SEPARATOR Gender Identity Not on file Sexual Orientation Not on file Obstetrics History Last Filed Vital Signs Vital Sign Reading Time Taken Comments Blood Pressure 120/86 10/27/2024 1:20 PM EGG SEPARATOR Pulse 64 10/27/2024 1:20 PM EGG SEPARATOR Temperature 36.9 ??C (98.4 ??F) 10/27/2024 1:20 PM CS T Respiratory Rate 18 10/27/2024 1:20 PM EGG SEPARATOR Oxygen Saturation 96% 10/27/2024 1:20 PM EGG SEPARATOR Inhaled Oxygen Concentration - - Weight 67.9 kg (149 lb 12.8 oz) 10/27/2024 1:20 PM EGG SEPARATOR Height 184.2 cm (6' 0.5 ) 10/27/2024 1:20 PM EGG SEPARATOR w shoes Body Mass Index 20.04 10/27/2024 1:20 PM EGG SEPARATOR Plan of Treatment Health Maintenance Due Date Last Done Comments Colon Cancer Screening-Colonoscopy 1961 Depression Screening 1961 Hepatitis C Screening 1961 Prostate Cancer Screening-PSA 1961 Hepatitis B Screening 1979 Regular Well Visit/Exam 18-64 1979 Lung Cancer Screening 2011 Covid-19 Vaccine (2023-2 5 season) 2024 08/25/2021, 01/08/2021, 12/11/2020 Influenza Vaccine (#1) 2024 , 07/02/2020, 06/22/2019, Additional history exists DTaP/Tdap/Td Vaccine (2 - Td or Tdap) 03/03/2029 03/03/2019 Pneumococcal vaccine <65 Completed 09/02/2022, 10/2015 Zoster Vaccine Completed 11/18/2022, 08/06, 10/04/2015 Medical Devices Implanted Type Area Route Salesman And Driver Device Identifier Shelf Expiration Date Model / Serial / Lot [employer] Gabriela Device Closure 24mm Lt Watchman Flx Pro Cardiac Strl La [id number] - S0 - [id number] Implanted:Qty: 1 on 2024 by Victoriano Loyola MD at [facility] Left Atrial Appendage Occluder N/A: Atrial Appendage [employer] Gabriela 12/02/2026 [id number] / 0 / [id number] [employer] System Closure Repair Femoral Artery Suture Mediated Perclose Prostyle 57727-49 - S0 - [id number] Implanted:Qty: 1 on 2024 by Victoriano Loyola MD at [facility] Vascular Closure Device N/A: Femoral [employer] 12/01/2025 [id number] / 0 / [id number] [employer] System Closure Repair Femoral Artery Suture Mediated Perclose Prostyle 95961-42 - S0 - [id number] Implanted:Qty: 1 on 2024 by Victoriano Loyola MD at [facility] Vascular Closure Device N/A: Femoral [employer] 12/01/2025 [id number] / 0 / [id number] [employer] [id number] Coil Embolization [employer] Micro[employer] [place] L14cm Od3mm .018 In Catheter - [id number] Implanted:Qty: 1 on 11/17/2021 at [facility] [employer] 11/09/2022 [id number] / / [id number] [employer] [id number] Coil Embolization [employer]il [place] L14cm Od3mm .018 In Catheter - [id number] Implanted:Qty: 1 on 11/17/2021 at [facility] [employer] 03/19/2022 [id number] / / [id number] [employer] [id number] Coil Embolization [employer]il [place] L14cm Od3mm .018 In Catheter - [id number] Implanted:Qty: 1 on 11/17/2021 at [facility] [employer] 03/19/2022 [id number] / / [id number] [employer] [id number] Coil Embolization [employer]il [place] L14cm Od3mm .018 In Catheter - [id number] Implanted:Qty: 1 on 11/17/2021 at [facility] [employer] 03/02/2023 [id number] / / [id number] Procedures Procedure Name Priority Date/Time Associated Diagnosis Comments EGFR Routine 10/27/2024 12:41 PM EGG SEPARATOR Hereditary hemorrhagic telangiectasia (HCC) DIFFERENTIAL AUTO Routine 10/27/2024 12:41 PM EGG SEPARATOR HHT (hereditary hemorrhagic telangiectasia) (HCC) Iron deficiency anemia due to chronic blood loss COMPREHENSIVE METABOLIC PANEL Routine 10/27/2024 12:41 PM EGG SEPARATOR Hereditary hemorrhagic telangiectasia (HCC) TSH Routine 10/27/2024 12:41 PM EGG SEPARATOR Hereditary hemorrhagic telangiectasia (HCC) Abnormal findings on diagnostic imaging of other specified body structures CBC WITH AUTO DIFFERENTIAL Routine 10/27/2024 12:41 PM EGG SEPARATOR HHT (hereditary hemorrhagic telangiectasia) (CMS/HCC) (HCC) Iron deficiency anemia due to chronic blood loss FERRITIN Routine 10/27/2024 12:41 PM EGG SEPARATOR HHT (hereditary hemorrhagic telangiectasia) (CMS/HCC) (HCC) Iron deficiency anemia due to chronic blood loss RETICULOCYTES Routine 10/27/2024 12:41 PM EGG SEPARATOR HHT (hereditary hemorrhagic telangiectasia) (CMS/HCC) (HCC) Iron deficiency anemia due to chronic blood loss CBC WITH AUTO DIFFERENTIAL Routine 10/19/2024 3:[address] CHEST ABDOMEN W CONTRAST Schedule Routine, Read Routine (OP Routine) 09/20/2024 1:25 PM EGG SEPARATOR HHT (hereditary hemorrhagic telangiectasia) (CMS/HCC) (HCC) Iron deficiency anemia due to chronic blood loss Pulmonary nodules Thoracic aortic aneurysm without rupture, unspecified part (HCC) Liver lesion, left lobe Liver lesion, right lobe CBC WITH AUTO DIFFERENTIAL Routine 09/19/2024 1:49 PM EGG SEPARATOR RETICULOCYTE COUNT Routine 09/19/2024 10:21 AM EGG SEPARATOR FERRITIN Routine 09/19/2024 8:17 AM EGG SEPARATOR EGFR Routine 08/25/2024 9:15 AM EGG SEPARATOR Iron deficiency anemia due to chronic blood loss DIFFERENTIAL AUTO Routine 08/25/2024 9:1 5 AM EGG SEPARATOR Iron deficiency anemia due to chronic blood loss CBC WITH AUTO DIFFERENTIAL Routine 08/25/2024 9:15 AM EGG SEPARATOR Iron deficiency anemia due to chronic blood loss COMPREHENSIVE METABOLIC PANEL Routine 08/25/2024 9:15 AM EGG SEPARATOR Iron deficiency anemia due to chronic blood loss FERRITIN Routine 08/25/2024 9:15 AM EGG SEPARATOR Iron deficiency anemia due to chronic blood loss IRON PROFILE W/ IBC Routine 08/25/2024 9 :15 AM EGG SEPARATOR Iron deficiency anemia due to chronic blood loss from Last 3 Months Results * eGFR (10/27/2024 12:41 PM EGG SEPARATOR) Pathologist [facility] eGFR 85 >=60 mL/min/1. 73 m2 Comment: [...] was last reviewed 2021. Testing performed by: [address] [address] Blood 10/27/2024 12:4 1 PM EGG SEPARATOR 10/27/2024 12:44 PM EGG SEPARATOR us Jasper Baptiste DO LAB BLOOD ORDERABLES Final R esult ABHIJEET [address] [facility] [place] [address] * Differential, auto (10/27/2024 12:41 PM EGG SEPARATOR) Pathologist [facility] Neutrophil abs 3.6 1.5 - 6.5 K/cumm Comment:Testing performed by : [address] [address] Imm gran abs 0.0 0.0 - 0.1 K/cumm ABHIJEET HARRIS Comment:Testing performed by : [address] [address] Lymphocyte abs 1.8 0.8 - 3.3 K/cumm ABHIJEET Comment:Testing performed by : [address] [address] Monocyte abs 0.6 0.2 - 0.8 K/cumm ABHIJEET Comment:Testing performed by : [address] [address] Eosinophil abs 0.2 0.0 - 0.5 K/cumm ABHIJEET Comment:Testing performed by : [address] [address] Basophil abs 0.1 0.0 - 0.1 K/cumm [facility] Comment:Testing performed by : [address] [address] Neutrophil pct 57.6 % [facility] Comment: Interpretive Data Percent cell count reference ranges are not reported, since discordance with absolute values may lead to misinterpretation of CBC data. Current Interpretive Data was last revised on 2018. Testing performed by: [address] [address] Imm gran pct 0.2 % [facility] Comment: Interpretive Data Percent cell count reference ranges are not reported, since discordance with absolute values may lead to misinterpretation of CBC data. Current Interpretive Data was last revised on 2018. Testing performed by: [address] [address] Lymphocyte pct 28.2 % [facility] Comment: Interpretive Data Percent cell count reference ranges are not reported, since discordance with absolute values may lead to misinterpretation of CBC data. Current Interpretive Data was last revised on 2018. Testing performed by: [address] [address] Monocyte pct 9.4 % [facility] Comment: Interpretive Data Percent cell count reference ranges are not reported, since discordance with absolute values may lead to misinterpretation of CBC data. Current Interpretive Data was last revised on 2018. Testing performed by: [address] [address] Eosinophil pct 3.5 % [facility] Comment: Interpretive Data Percent cell count reference ranges are not reported, since discordance with absolute values may lead to misinterpretation of CBC data. Current Interpretive Data was last revised on 2018. Testing performed by: [address] [address] Basophil pct 1.1 % [facility] Comment: Interpretive Data Percent cell count reference ranges are not reported, since discordance with absolute values may lead to misinterpretation of CBC data. Current Interpretive Data was last revised on 2018. Testing performed by: [address] [address] Blood 10/27/2024 12:4 1 PM EGG SEPARATOR 10/27/2024 12:44 PM EGG SEPARATOR Jasper Baptiste DO LAB BLOOD ORDERABLES Final R esult [facility] [address] [facility] [place] [address] * (ABNORMAL) CBC with auto differential (10/27/2024 12:41 PM EGG SEPARATOR) WBC 6.3 3.8 - 9.9 K/cumm Comment:Testing performed by : [address] [address] Hgb 11.9(L) 13.0 - 17.5 g/dL ABHIJEET Comment:Testing performed by : [address] [address] Hct 36.1(L) 38.9 - 50.3 % [facility] Comment:Testing performed by : [address] [address] Plt 254 150 - 400 K/cumm ABHIJEET Comment:Testing performed by : [address] [address] MPV 9.8 9.1 - 12.3 fL ABHIJEET Comment:Testing performed by : [address] [address] RBC 3.81(L) 4.30 - 5.80 M/cumm ABHIJEET Comment:Testing performed by : [address] [address] MCV 94.8 81.3 - 96.4 fL ABHIJEET Comment:Testing performed by : [address] [address] MCH 31.2 27.1 - 33.3 pg ABHIJEET HARRIS Comment:Testing performed by : [address] [address] MCHC 33.0 32.3 - 35.7 g/dL ABHIJEET [facility]IS Comment:Testing performed by : [address] [address] RDW CV 15.2(H) 11.1 - 14.9 % ABHIJE[facility]IS Comment:Testing performed by : [address] [address] RDW SD 52.9(H) 35.7 - 48.1 fL ABHIJEET [facility]ARRIS Comment:Testing performed by : [address] [address] NRBC abs 0.00 0.00 - 0.01 K/cumm ABHIJEET [facility]ARRIS Comment:Testing performed by : [address] [address] Blood 10/27/2024 12:4 1 PM EGG SEPARATOR 10/27/2024 12:44 PM EGG SEPARATOR Jasper Baptiste DO LAB BLOOD ORDERABLES Final R esult [facility] [address] [facility] [place] [address] * Reticulocyte Count (10/27/2024 12:41 PM EGG SEPARATOR) Retics, absolute 0.058 0.020 - 0.087 M/cumm Comment:Testing performed by : [address] [address] Retics 1.5 0.4 - 2.9 % ABHIJE[facility]IS Comment:Testing performed by : [address] [address] Reticulocyte Hgb 34.2 30.5 - 38.0 pg ABHIJEET HARRIS Comment:Testing performed by : [address] [address] Blood 10/27/2024 12:4 1 PM EGG SEPARATOR 10/27/2024 12:44 PM EGG SEPARATOR Jasper Baptiste DO LAB BLOOD ORDERABLES Final R esult Performing Organization Address [facility] Co de Phone Number ABHIJEET [address] [place] [address] * TSH (10/27/2024 12:41 PM EGG SEPARATOR) Thyroid Stimulating Hormone 1.78 0.30 - 4.20 mcIUnit/mL Comment:Testing performed by : [address] [address] Blood 10/27/2024 12:4 1 PM EGG SEPARATOR 10/27/2024 1:44 PM EGG SEPARATOR Jasper Martinonti DO LAB BLOOD ORDERABLES Final R [facility] Performing Organization Address [facility] de Phone Number ABHIJEET [address] [place] [address] * Ferritin (10/27/2024 12:41 PM EGG SEPARATOR) Ferritin 69 30 - 400 ng/mL Comment:Testing performed by : [address] [address] Blood 10/27/2024 12:4 1 PM EGG SEPARATOR 10/27/2024 1:44 PM EGG SEPARATOR Jasper Baptiste DO LAB BLOOD ORDERABLES Final R [facility] Performing Organization Address [facility] Co de Phone Number ABHIJEET [address] [address] * Comprehensive metabolic panel (10/27/2024 12:41 PM EGG SEPARATOR) Sodium 140 135 - 145 mmol/L Comment:Testing performed by : [address] [address] Potassium, pl 4.7 3.3 - 4.9 mmol/L ABHIJEET Comment:Testing performed by : [address] [address] Chloride 104 97 - 110 mmol/L ABHIJEET Comment:Testing performed by : [address], [place]., [address] CO2 27 22 - 32 mmol/L ABHIJEET Comment:Testing performed by : [address], [place]., [address] Anion gap 9 2 - 15 mmol/L ABHIJEET Comment:Testing performed by : [address], [place]., [address] BUN 11 6 - 25 mg/dL [facility] Comment:Testing performed by : [address], [place]., [address] Creatinine 1.00 0.80 - 1.30 mg/dL ABHIJEET Comment:Testing performed by : [address], [place]., [address] Glucose 122 70 - 199 mg/dL [facility] Comment: Interpretive Data Fasting glucose >/= 126 [...] classification and Diagnosis of Diabetes Diabetes Care 202; 46: S19-S40. Current interpretive data was last revised 2022. Testing performed by: [address] [address] Calcium 9.1 8.5 - 10.3 mg/dL [facility] Comment:Testing performed by : [address], [place]., [address] Bilirubin, total 0.3 0.1 - 1.2 mg/dL [facility] Comment:Testing performed by : [address], [place]., [address] Protein, pl 6.8 6.5 - 8.5 g/dL [facility] Comment:Testing performed by : [address], [place]., [address] Albumin 3.9 3.5 - 5.0 g/dL ABHIJEET HARRIS Comment:Testing performed by : [facility], [address] [place] [address]., [address] Alk phos 88 40 - 130 Units/L ABHIJEET Comment:Testing performed by : [facility], [address] [place] [address]., [address] ALT 11 7 - 55 Units/L ABHIJEET Comment:Testing performed by : [address] [address] AST 23 10 - 50 Units/L ABHIJEET Comment:Testing performed by : [address] [address] Blood 10/27/2024 12:4 1 PM EGG SEPARATOR 10/27/2024 12:44 PM EGG SEPARATOR Jasper Baptiste DO LAB BLOOD ORDERABLES Final R esult Performing Organization Address City/[facility]/ZIP Co de Phone Number ABHIJEET [facility] [place] [address] * (ABNORMAL) CBC with auto differential (10/19/2024 3:20 PM EGG SEPARATOR) Blood Jasper Baptiste DO LAB BLOOD ORDERABLES Final R esult [facility] [address] [phone] * CT Chest Abdomen W Contrast (09/20/2024 1:25 PM EGG SEPARATOR) Anatomical Region Laterality Modality Body N/A Computed Tomogra phy 09/25/2024 1:12 PM EGG SEPARATOR Narrative 09/25/2024 2:00 PM EGG SEPARATOR EXAM DESCRIPTION: ?? CT CHEST ABDOMEN W [...] PM T: ??09/25/2024 2:00 PM Report ID: [id number] Reading Location: ??[id number] Procedure Note James Montes, DO - 09/25/2024 [...] James Montes D.O. PS: PS Report ID: [id number] Reading Location: [place] [address] Result [facility] Jasper Baptiste DO IMG CT PROCEDURES Final Resu lt * CBC with auto differential (09/19/2024 1:49 PM EGG SEPARATOR) Blood Result [facility] Provider MD LAB BLOOD ORDERABLES Leticia l Result * Reticulocyte Count (09/19/2024 10:21 AM EGG SEPARATOR) Result [facility] Provider MD LAB BLOOD ORDERABLES Leticia l Result * Ferritin (09/19/2024 8:17 AM EGG SEPARATOR) Blood Result [facility] Provider MD LAB BLOOD ORDERABLES Leticia l Result * eGFR (08/25/2024 9:15 AM EGG SEPARATOR) eGFR >90 >=60 mL/min/1. 73 m2 Comment: [...] was last reviewed 2021. Testing performed by: [address] [address] Blood 08/25/2024 9:15 AM EGG SEPARATOR 08/25/2024 9:17 AM EGG SEPARATOR us Jasper Baptiste DO LAB BLOOD ORDERABLES Final R esult Performing Organization Address City/State/[facility] Co de Phone Number [facility] [address] [facility] [place] [address] * Differential, auto (08/25/2024 9:15 AM EGG SEPARATOR) Neutrophil abs 2.6 1.5 - 6.5 K/cumm Comment:Testing performed by : [address] [address] Imm gran abs 0.0 0.0 - 0.1 K/cumm ABHIJEET Comment:Testing performed by : [address] [address] Lymphocyte abs 1.5 0.8 - 3.3 K/cumm ABHIJEET Comment:Testing performed by : [address] [address] Monocyte abs 0.6 0.2 - 0.8 K/cumm [facility] Comment:Testing performed by : [address], [place]., [address] Eosinophil abs 0.2 0.0 - 0.5 K/cumm [facility] Comment:Testing performed by : [address], [place]., [address] Basophil abs 0.0 0.0 - 0.1 K/cumm [facility] Comment:Testing performed by : [address] [address] Neutrophil pct 52.6 % [facility] Comment: Interpretive Data Percent cell count reference ranges are not reported, since discordance with absolute values may lead to misinterpretation of CBC data. Current Interpretive Data was last revised on 2018. Testing performed by: [address] [address] Imm gran pct 0.4 % [facility] Comment: Interpretive Data Percent cell count reference ranges are not reported, since discordance with absolute values may lead to misinterpretation of CBC data. Current Interpretive Data was last revised on 2018. Testing performed by: [address] [address] Lymphocyte pct 29.8 % [facility] Comment: Interpretive Data Percent cell count reference ranges are not reported, since discordance with absolute values may lead to misinterpretation of CBC data. Current Interpretive Data was last revised on 2018. Testing performed by: [address] [address] Monocyte pct 11.9 % [facility] Comment: Interpretive Data Percent cell count reference ranges are not reported, since discordance with absolute values may lead to misinterpretation of CBC data. Current Interpretive Data was last revised on 2018. Testing performed by: [address] [address] Eosinophil pct 4.7 % [facility] Comment: Interpretive Data Percent cell count reference ranges are not reported, since discordance with absolute values may lead to misinterpretation of CBC data. Current Interpretive Data was last revised on 2018. Testing performed by: [address] [address] Basophil pct 0.6 % ABHIJEET Comment: Interpretive Data Percent cell count reference ranges are not reported, since discordance with absolute values may lead to misinterpretation of CBC data. Current Interpretive Data was last revised on 2018. Testing performed by: [address] [address] Blood 08/25/2024 9:15 AM EGG SEPARATOR 08/25/2024 9:17 AM EGG SEPARATOR Jasper Baptiste DO LAB BLOOD ORDERABLES Final R esult Performing Organization Address [facility] Co de Phone Number [address] [place] [address] * (ABNORMAL) Iron profile w/ IBC (08/25/2024 9:15 AM EGG SEPARATOR) Pathologist [facility] Iron 42(L) 50 - 150 mcg/dL Comment:Testing performed by : [address] [address] TIBC 249(L) 250 - 400 mcg/dL ABHIJEET Comment:Testing performed by : [address] [address] Transferrin saturation 17(L) 20 - 50 % ABHIJEET Comment:Testing performed by : [address] [address] Blood 08/25/2024 9:15 AM EGG SEPARATOR 08/25/2024 10:01 AM EGG SEPARATOR Jasper Baptiste DO LAB BLOOD ORDERABLES Final R esult Performing Organization Address City/[facility] Co de Phone Number [address] [place] [address] * (ABNORMAL) CBC with auto differential (08/25/2024 9:15 AM EGG SEPARATOR) WBC 4.9 3.8 - 9.9 K/cumm Comment:Testing performed by : [address] [address] Hgb 11.0(L) 13.0 - 17.5 g/dL ABHIJEET Comment:Testing performed by : [address] [address] Hct 33.6(L) 38.9 - 50.3 % ABHIJEET Comment:Testing performed by : [address] [address] Plt 234 150 - 400 K/cumm CERDUNG Comment:Testing performed by : [address] [address] MPV 9.4 9.1 - 12.3 fL ABHIJEET Comment:Testing performed by : [address] [address] RBC 3.58(L) 4.30 - 5.80 M/cumm ABHIJEET Comment:Testing performed by : [address] [address] MCV 93.9 81.3 - 96.4 fL CERDUNG Comment:Testing performed by : [address] [address] MCH 30.7 27.1 - 33.3 pg CERDUNG Comment:Testing performed by : [address] [address] MCHC 32.7 32.3 - 35.7 g/dL ABHIJEET Comment:Testing performed by : [address], [address] RDW CV 18.4(H) 11.1 - 14.9 % ABHIJEET Comment:Testing performed by : [address] [address] RDW SD 63.8(H) 35.7 - 48.1 fL CERDUNG Comment:Testing performed by : [address] [address] NRBC abs 0.00 0.00 - 0.01 K/cumm ABHIJEET Comment:Testing performed by : [address], [address] Blood 08/25/2024 9:15 AM EGG SEPARATOR 08/25/2024 9:17 AM EGG SEPARATOR Jasper Baptiste DO LAB BLOOD ORDERABLES Final R esult Performing Organization Address City/[facility] Co de Phone Number ABHIJEET [address] [address] * Ferritin (08/25/2024 9:15 AM EGG SEPARATOR) Pathologist [facility] Ferritin 113 30 - 400 ng/mL Comment:Testing performed by : [address] [address] Blood 08/25/2024 9:15 AM EGG SEPARATOR 08/25/2024 10:01 AM EGG SEPARATOR Jasper Baptiste DO LAB BLOOD ORDERABLES Final R esult Performing Organization Address [facility] de Phone Number ABHIJEET [address] [address] * (ABNORMAL) Comprehensive metabolic panel (08/25/2024 9:15 AM EGG SEPARATOR) [facility] Sodium 141 135 - 145 mmol/L Comment:Testing performed by : [address] [address] Potassium, pl 4.0 3.3 - 4.9 mmol/L ABHIJEET Comment:Testing performed by : [address] [address] Chloride 105 97 - 110 mmol/L ABHIJEET Comment:Testing performed by : [address] [address] CO2 26 22 - 32 mmol/L ABHIJEET Comment:Testing performed by : [address] [address] Anion gap 10 2 - 15 mmol/L ABHIJEET Comment:Testing performed by : [address] [address] BUN 5(L) 6 - 25 mg/dL ABHIJEET Comment:Testing performed by : [address] [address] Creatinine 0.90 0.80 - 1.30 mg/dL ABHIJEET Comment:Testing performed by : [address] [address] Glucose 99 70 - 199 mg/dL ABHIJEET [...] classification and Diagnosis of Diabetes Diabetes Care 202; 46: S19-S40. Current interpretive data was last revised 2022. Testing performed by: [address] [address] Calcium 8.7 8.5 - 10.3 mg/dL ABHIJEET Comment:Testing performed by : [address] [address] Bilirubin, total 0.2 0.1 - 1.2 mg/dL ABHIJEET Comment:Testing performed by : [address] [address] Protein, pl 6.4(L) 6.5 - 8.5 g/dL ABHIJEET Comment:Testing performed by : [address] [address] Albumin 3.7 3.5 - 5.0 g/dL ABHIJEET Comment:Testing performed by : [address] [address] Alk phos 76 40 - 130 Units/L ABHIJEET Comment:Testing performed by : [address] [address] ALT 11 7 - 55 Units/L ABHIJEET Comment:Testing performed by : [address] [address] AST 21 10 - 50 Units/L ABHIJEET Comment:Testing performed by : [address] [address] Blood 08/25/2024 9:15 AM EGG SEPARATOR 08/25/2024 9:17 AM EGG SEPARATOR Jasper Baptiste DO LAB BLOOD ORDERABLES Final R esult [facility] [address] [facility] [place] [address] from Last 3 Months Insurance MEDICARE IDPA [facility] MEDICARE MEDICARE Advance Directives For more information, please contact: [phone] Documents on File Type Date Recorded Patient Marketing Team Lead Expl anation ADVANCE DIRECTIVE 01/16/2013 12:00 AM DONTRELL R OF ENROLLMENT CLERK FINANCIAL/MEDICAL * Full Code (Latest Code Status on File) Date Activated Date Inactivated Comments 2024 11:37 AM 03/29/2024 4:34 PM * Full Code Date Activated Date Inactivated Comments 11/17/2021 2:31 PM 11/17/2021 8:17 PM * Full Code Date Activated Date Inactivated Comments 07/29/2021 8:06 PM 07/30/2021 1:05 AM Care Teams Manager Pricing Relationship Specialty Start Date End Date Ruthie Toussaint MD [address] [place] [address] PCP - General Family Medicine 06/09/24 Jarred Turner MD [address] [place] [address] Consulting Physician Urology 03/20/19 Jasper Baptiste DO [address] [place] [id number] Medical Oncologist/Hematologis t Hematology and Oncology 11/12/20 Aicha Johnson MD [address] [place] [address] Consulting Physician Otolaryngology 07/29/21 Avelino Linares MD [address] [place] [address] Consulting Physician Urology 10/27/24
--- OUTSIDE RECORDS SUMMARY | 2024-10-30 11:25 | XMS_ITS | Data Portability ---
Author Organization [facility], [address] [place] [address] Neurology ([place]) Address [address] [place] [address] Care Team Providers Care Insights Strategist Name Role Phone RUTHIE LARIOS Primary Care Provider Assessment Encounter Date Assessment Date Assessment LastModified by Organization Details LastModified Time 06/28/2024 06/28/2024 1. The patient has multiple medical problems, most notably HHT. Currently, his medical problems are stable from our end and he continues to follow with his multiple specialists. He does have a billboard poster, a thoracic surgeon, hem-onc doctor, a lung doctor, acid loader , and currently they provide all of his medications. We will follow up with the patient on a six-month basis but of course sooner as needed. 2. I personally spent a total of 40 minutes on the patient on this date of service including both notd-nn-rdph and ufw-cyfv-qk-f josey time excluding any separately reportable services. SKK [email or web address] Not available 06/28/2024 14:10:42 Plan of Treatment Reminders Order Date Submit Date Provider Last Modified By Organization Details Last Modified Time Details Appointments Establish ed Patient 20.EST 2024 10:40A M Dr. Ruthie Larios Not available Not available Not available Lab None recorded. Referral None recorded. Procedures None recorded. Surgeries None recorded. Imaging None recorded. Medication Orders None recorded. Patient TargetsNo targets recorded. Patient InstructionsNo instructions recorded. Reason for Referral None Reported. Problems Name Problem SNOMED Code Status Onset Date Resolution Date Notes Provider Name and Address Organization Details Recorded Time Aneurysm of thoracic aorta 151616875 Active 2023 follows with specialist (Dr. 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 follows with specialist Ruthie Larios MD [address] [place] [address], [address], [facility] 4 10:55:46 Coronary arterioscl erosis 68095498 Active 2023 Ruthie Larios MD [address] [place] [address], [address], [facility] 4 10:55:52 Anxiety disorder 748578633 Active 2023 Ruthie Larios MD [facility] [place] [address], [address], [facility] 4 10:55:59 Multiple nodules of lung 227714591 Active 2023 Ruthie Larios MD [facility] [place] [address], [address] 3, [facility] 4 10:56:15 Pulmonary emphysema 86348396 Active 2023 Ruthie Larios MD [facility] [place] [address], [address] 3, [facility] 4 10:57:27 Iron deficiency anemia 26188560 Active 2023 d/t chronic blood loss with HHT Ruthie Larios MD [address] [place] [address], [address] 3, [facility] 4 10:57:47 Chronic bronchitis 38720144 Active 2023 Ruthie Larios MD [facility] [place] [address], [address] 3, [facility] 4 10:57:55 Chronic pain syndrome 729284723 Active 2023 Ruthie Larios MD [facility] [place] [address], [address] 3, [facility] 4 10:58:32 Degenerati on of interverte bral disc 91567268 Active 2023 Ruthie Larios MD [address] [place] [address], [address] 3, [facility] 4 10:58:47 Aortic aneurysm 69422656 Active 2023 [facility] 4 10:59:38 Atrial fibrillati on 90168949 Active 2023 follows with cardiology at [facility]. has watchman Rtuhie Larios MD [address] [place] [address], [address] 3, [facility] 4 11:12:09 Chronic obstructiv e pulmonary disease 97974433 Active 2023 follows with pulmonolog y Ruthie Larios MD [address] [place] [address], [address] 3, [facility] 4 11:01:08 Neurapraxi a 138839457 Active 2023 of left upper extremity Ruthie Larios MD [address] [place] [address], [address] 3, [facility] 4 11:04:49 Problem Notes None recorded. Procedures Surgical History Date Name Laterality Status Provider Name and Address Organization Details Recorded Time procedure on heart completed [facility] 06/28/2024 10:57:11 cardiac catheterization completed [facility] 06/28/2024 10:57:17 procedure on brain completed [facility] 06/28/2024 10:57:36 procedure on lung completed [facility] 06/28/2024 10:58:01 Imaging Results None recorded. Procedure Notes None recorded. Medical Equipment None Reported. Allergies Allergen ID Allergen Name Allergen Category Reaction Reaction Severity Criticality Documentation Date Start Date Code Code System Note Provider Name and Address Organization Details Recorded Time [id number] Product containin g penicilli n and antibioti c (product) medicatio n hives Not available Not available 06/28/2024 23966 05 SNOMED Not Available Not Available Not Available Medications Name Sig Start Date Stop Date Status Note LastModified by Organization Details LastModified Time metformin 500 mg tablet TAKE 1/2 TABLET BY MOUTH DAILY WITH SUPPERTIM E MEAL active Not Available Not Available No t Available prednisone 10 mg tablet TAKE 4 TABLETS BY MOUTH DAILY X 2 DAYS, 3 TABS X 2 DAYS, 2 TABS X 2 DAYS, 1 TAB X 2 DAYS 06/28 completed Not Available Not Available Not Available atorvastati n 20 mg tablet TAKE 1 TABLET BY MOUTH EVERY DAY active Not Available Not Available No t Available albuterol sulfate 2.5 mg/3 mL (0.083 %) solution for nebulizatio n INHALE 1 VIAL BY NEBULIZAT ION 4 (FOUR) TIMES A DAY active Not Available Not Available No t Available Vitamin C 500 mg tablet TAKE 1 TABLET BY MOUTH EVERY DAY 06/28 completed Not Available Not Available Not Available sumatriptan 100 mg tablet TAKE 1 TABLET BY MOUTH ONCE NEEDED FOR MIGRAINE active Not Available Not Available No t Available clopidogrel 75 mg tablet 06/28 completed Not Available Not Available Not Available omeprazole 40 mg capsule,del ayed release TAKE 1 CAPSULE BY MOUTH EVERY DAY active Not Available Not Available No t Available doxycycline monohydrate 100 mg tablet TAKE 1 TABLET BY MOUTH TWICE A DAY FOR 7 DAYS 06/28 completed Not Available Not Available Not Available isosorbide mononitrate ER 60 mg tablet,exte nded release 24 hr TAKE 1 TABLET BY MOUTH EVERY DAY active Not Available Not Available No t Available tamsulosin 0.4 mg capsule take one capsule by mouth daily active Not Available Not Available No t Available OneTouch Ultra Test strips USE TO CHECK BLOOD SUGAR BEFORE MEALS OR AT BEDTIME active Not Available Not Available No t Available morphine ER 60 mg tablet,exte nded release TAKE 1 TABLET BY MOUTH 3 TIMES A DAY active Not Available Not Available No t Available paroxetine 20 mg tablet TAKE 1 TABLET BY MOUTH EVERY DAY IN THE MORNING active Not Available Not Available No t Available ferrous sulfate 325 mg (65 mg iron) tablet TAKE 1 TABLET BY MOUTH 3 TIMES A DAY WITH MEALS. 06/28 completed Not Available Not Available Not Available ascorbic acid (vitamin C) 500 mg chewable tablet take one tablet by mouth daily active Not Available Not Available No t Available nitroglycer in 0.4 mg sublingual tablet TAKE 1 TABLET (0.4 MG TOTAL) BY MOUTH EVERY 5 MINUTES NEEDED FOR CHEST PAIN active Not Available Not Available No t Available gabapentin 300 mg capsule TAKE 2 CAPSULES BY MOUTH EVERY DAY AT NIGHT active Not Available Not Available No t Available furosemide 20 mg tablet TAKE 1 TABLET BY MOUTH EVERY DAY active Not Available Not Available No t Available albuterol sulfate HFA 90 mcg/actuati on aerosol inhaler INHALE 2 PUFFS BY MOUTH EVERY 6 HOURS NEEDED FOR WHEEZING active Not Available Not Available No t Available doxycycline hyclate 20 mg tablet TAKE 1 TABLET BY MOUTH TWICE A DAY active Not Available Not Available No t Available finasteride 5 mg tablet TAKE 1 TABLET BY MOUTH EVERY DAY active Not Available Not Available No t Available escitalopra m 10 mg tablet TAKE 1 TABLET BY MOUTH EVERY DAY 06/28 completed Not Available Not Available Not Available bupropion HCl XL 150 mg 24 hr tablet, extended release TAKE 1 TABLET BY MOUTH EVERY DAY 06/28 completed Not Available Not Available Not Available metoprolol tartrate 25 mg tablet TAKE 1 TABLET BY MOUTH TWICE A DAY active Not Available Not Available No t Available mirtazapine 7.5 mg tablet TAKE 1 TABLET BY MOUTH EVERY DAY NIGHTLY 06/28 completed Not Available Not Available Not Available lactulose 10 gram/15 mL oral solution TAKE 15 ML BY MOUTH AT BEDTIME active Not Available Not Available No t Available tranexamic acid 650 mg tablet TAKE 1 TABLET (650 MG TOTAL) BY MOUTH 2 (TWO) TIMES A DAY FOR 5 DAYS 06/28 completed Not Available Not Available Not Available Multi Vitamin take one tablet by mouth daily active Not Available Not Available No t Available OneTouch Ultra2 Meter CHECK TO CHECK BLOOD SUGAR BEFORE MEALS OR AT BEDTIME active Not Available Not Available No t Available OneTouch Delica Plus Lancet 33 gauge USE TO CHECK SUGAR BEFORE MEALS OR AT BEDTIME active Not Available Not Available No t Available Vitals Date Recorded Body weight Provider Name an d Address Organization Details Last Updated DateTime 06/28/[address] [facility] 06/28/2024 10:46:00 Date Recorded Body mass index (BMI) Body height Provider Name and Address Organization Details Last Updated DateTime 06/28/2024 20.8 kg/m2 182.88 cm Tiara Gabriel [facility] 06/28/2024 10:46:24 Social History Question Answer Notes LastModified by Organizat ion Details LastModified Time Tobacco Smoking Status Current Every Day Smoker Tiara Gabriel [facility] 06/28/2024 10:56:48 How Many Packs Per Day (PPD)? 1/2 Pack [id number] Information not available 06/28/2024 Sex: Unknown Functional Status None recorded. Mental Status None recorded. Family History Relationship Description Onset Age of this Age Resolved Age Notes LastModified by Organization Details LastModified Time Father Osler hemorrhagic telangiectas ia syndrome [id number] Not available 10:53:57 Father Heart disease [id number] Not available 06/28 10:54:39 Paternal Grandfather Osler hemorrhagic telangiectas ia syndrome [id number] Not available 10:54:11 Mother Heart disease [id number] Not available 06/28 10:54:39 Mother Malignant tumor of breast [id number] Not available 06/28 10:54:49 Medical History No medical history recorded. Immunizations Vaccine Type Date Status Note Provider Nam e and Address Organization Details Recorded Time Influenza, split virus, quadrivalent, preservative 2 completed [facility] 06/28/2024 10:48:44 Influenza, split virus, quadrivalent, preservative 3 completed Tiarahazel Gabriel [facility] 06/28/2024 10:48:44 zoster recombinant 3 completed [facility] 06/28/2024 10:48:44 zoster recombinant 2 completed [facility] 06/28/2024 10:48:44 COVID-19, mRNA, LNP-S, PF, 100 mcg/0.5mL dose or 50 mcg/0.25mL dose 1 completed Tiara [facility] 06/28/2024 10:48:44 COVID-19, mRNA, LNP-S, PF, 100 mcg/0.5mL dose or 50 mcg/0.25mL dose 1 completed Tiarahazel Gabriel [facility] 06/28/2024 10:48:44 COVID-19, mRNA, LNP-S, PF, 100 mcg/0.5mL dose or 50 mcg/0.25mL dose 2 completed [facility] 06/28/2024 10:48:44 COVID-19, mRNA, LNP-S, PF, 100 mcg/0.5mL dose or 50 mcg/0.25mL dose 1 completed [facility] 06/28/2024 10:48:44 Pneumococcal conjugate PCV20, polysaccharide [id number] conjugate, adjuvant, PF 2 completed Tiarahazel Gabriel [facility] 06/28/2024 10:48:44 COVID-19, mRNA, LNP-S, bivalent, PF, 50 mcg/0.5 mL or 25mcg/0.25 mL dose 2 completed Tiara Gabriel [facility] 06/28/2024 10:48:44 COVID-19, mRNA, LNP-S, PF, 50 mcg/0.5 mL 4 completed Tiarahazel Gabriel [facility] 06/28/2024 10:48:44 COVID-19, mRNA, LNP-S, PF, 50 mcg/0.5 mL 3 completed Tiarahazel Gabriel [facility] 06/28/2024 10:48:44 influenza, unspecified formulation 2 completed Tiarahazel Gabriel [facility] 06/28/2024 10:48:44 influenza, unspecified formulation 8 completed Tiarahazel Gabriel [facility] 06/28/2024 10:48:44 Tdap 9 completed [facility] 06/28/2024 10:48:44 Pneumococcal conjugate PCV 13 6 completed [facility]24 10:48:44 Pneumococcal conjugate PCV 13 5 completed [facility] 06/28/2024 10:48:44 pneumococcal, unspecified formulation 2 completed [facility] 06/28/2024 10:48:44 zoster live 6 completed [facility] 06/28/2024 10:48:44 zoster live 6 completed [facility] 06/28/2024 10:48:44 Influenza, split virus, trivalent, PF 5 completed Tiara Gabriel [facility] 06/28/2024 10:48:44 Influenza, split virus, quadrivalent, PF 7 completed [facility] 06/28/2024 10:48:44 Influenza, split virus, quadrivalent, PF 9 completed [facility] 06/28/2024 10:48:44 Influenza, split virus, quadrivalent, PF 0 completed Tiara Gabriel [facility] 06/28/2024 10:48:44 Influenza, split virus, quadrivalent, PF 8 completed [facility] 06/28/2024 10:48:44 Influenza, split virus, quadrivalent, PF 1 completed [facility] 06/28/2024 10:48:44 Past Encounters Encounter ID Performer Location Encounter Start Date Encounter Closed Date Diagnosis/Indication Diagnosis SNOMED-CT Code Diagnosis ICD10 Code Diagnosis Note [id number] Ruthie Larios MD [address] [address] 06/28/2024 10:26:45 06/28/2024 11:49:21 Osler hemorrhagic telangiectasia syndrome 19516134 I78.0 Aneurysm o f thoracic aorta 285395410 I71.20 Anxiety disorder 6393429 06 F41.9 Aortic aneurysm 82067781 I71.9 Atrial fibrillation 4943 6004 I48.91 Chronic ob structive pulmonary disease 46537921 J44.9 Chronic pain syndrome 37 8606648 G89.4 Coronary arteriosclerosis 02587213 I25.10 Pulmonary emphysema 8743 3001 J43.9 Iron defic iency anemia 81534977 D50.9 Health Concerns Section Related Observation LastModified by Organization Detai ls LastModified Time None Recorded Concern Status LastModified by Organization Details LastModified Time None Recorded Advance Directives Directive None Recorded Payers Encounter Date Sequence Insurance Name Policy Number Policy Clark Covered Member ID Clark Member ID Guarantor Name 06/28/2024 1 [place] Sebastian Carrillo [id number] Sebastian Carrillo 06/28/2024 2 [place] [id number] Sebastian Carrillo [id number] Sebastian Carrillo Notes Date Note Type Note Provider Name and Address Organization Details Recorded Time 06/28/2024 text/html The patient is here today for a new patient visit to establish care. He is a patient of Dr. Baptiste who is his oncologist. He was to get established with a primary care doctor. His last doctor was Dr. Ishmael Joshua who he saw last in the 80s and 90s. He has several specialists who fill all of his medications. Please see problem list for detailed PMH. Just [facility] flu [facility] colonoscopy-2016 Ruthie Larios MD [address] [place] [address], [phone], [place] [facility] 07/03/2024 09:31:11
[2024-10-30 12:13] LABS: Hematocrit 37.3 % (42.0-52.0)
[2024-10-30 12:25] LABS: Anion Gap 6 mmol/L (4-12); Blood Urea Nitrogen 8 mg/dL (9-20); Calcium 8.9 mg/dL (8.4-10.2); Carbon Dioxide 29 mmol/L (22-30); Chloride 105 mmol/L (98-107); Estimated Glomerular Filt Rate > 60; Glucose 83 mg/dL (65-110); Potassium 4.7 mmol/L (3.4-5.0); Sodium 140 mmol/L (137-145)
[2024-10-30 12:37] LABS: Prothrombin Time 14.1 Seconds (11.1-14.7)
[2024-10-30 12:38] LABS: Partial Thromboplastin Time 30.3 Seconds (22.3-36.8)
== END 2024-10-30 10:17 | disposition home or self-care (01) ==
LOC: ANHSURGERY 10:24
PROVIDERS: Anesthesiology; PCP Family Medicine; Visit Provider Urology
DX: Z01.818 Encounter for other preprocedural examination (principal); K76.9 Liver disease, unspecified; I48.91 Unspecified atrial fibrillation; I25.10 Atherosclerotic heart disease of native coronary artery without angina pectoris; D64.9 Anemia, unspecified
CPT/HCPCS: 36415; 80048; 85014; 85018; 85610; 85730; 93005

== ENCOUNTER 2024-11-02 01:03 | Day surgery (SDC) | payer MEDICARE, MEDICAID, SELFPAY ==
[2024-10-24 13:10] VITALS: BMI 19.8
--- NOTE | 2024-10-24 13:11 | PC.NURSE ---
Report to the Outpatient Waiting Room, entrance under the green pavilion located off [facility], at time _0830_ on date _[id number]_. Planned Procedure Time: _1030_.? Time changes happen often and if your time is changed the preop area will call you the afternoon before. - You and your visitor will be asked to self-screen and do not enter if you have any COVID symptoms. Please call surgeon if you need to reschedule. - A mask is optional within the hospital at this time. Patients may have clear liquids (water, carbonated beverages, clear teas, apple juice) until 3 hours prior to surgery with a maximum of 20 ounces. - No food from midnight until time of surgery and no smoking. This includes no chewing gum, candy or mints. Take only the following medications with a SIP of water on the morning of surgery: ___Morphine, Metoprolol, and Isosorbide.___ DO NOT STOP ANY OF YOUR OTHER PRESCRIPTION MEDICATIONS PRIOR TO SURGERY EXCEPT THE FOLLOWING Medications to discontinue per physician __None___ Please no make-up, nail icelandic, hairspray, perfume, deodorant, or body powder the day of surgery.? No jewelry (including any body piercings) or valuables the day of surgery, leave them at home.? Please take a shower or bath the night before, or the morning of, surgery with an antibacterial soap.? Wear comfortable, loose fitting clothing.? - Jewelry must be removed prior to entering the operating room.? Rings and piercings that are not removed may be cut off. - The hospital will not accept responsibility for valuables.? - Please leave all valuables, including medications, at home the day of surgery. If you are going home after surgery, a licensed local truck driver must drive you home.? - NO public transportation without another adult if you receive anesthesia. - We recommend that an adult stay with you for 24 hours following discharge. - We also recommend that you do not drive, make important decision, drink alcoholic beverages, or take any drugs that were not prescribed by your health care provider for at least 24 hours after your discharge time. Follow any additional instructions given to you from your surgeon. Telephone instructions given to Mina___and asked if any additional questions and then verbalized understanding. Patient advised to call surgeon office or pre surgery nurse liaison [phone] if any additional questions.
[2024-11-02] VITALS (8 sets, daily range): BP systolic 107–139; BP diastolic 67–100; PULSE 62–94; RESP 10–18; TEMP 36.5; O2SAT 96–100
--- OUTSIDE RECORDS SUMMARY | 2024-11-02 01:07 | XMS_ITS | Encounter Summary ---
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 Gender Identity Not on file Sexual [...] on filedocumented in this encounter Care Teams Weight Recorder Relationship Specialty Start Date End Date Gustavo Carter DO [address] [facility] [address] [place] [address] PCP - General Internal Medicine 06/21/18 01/11/24 Ruthie Toussaint MD [address] [place] [address] PCP - General Family Medicine 06/09/24 Jarred Turner MD [address] [place] [address] Consulting Physician Urology 03/20/19 Jasper Baptiste DO [address] [place] [id number] Medical Oncologist/Hematologi Hematology and Oncology 11/12/20 Aicha Johnson MD [address] [place] [address] Consulting Physician Otolaryngology 07/29/21 Avelino Linares MD [address] [facility] [address] [place] [address] Consulting Physician Urology 10/27/24 documented as of this encounter
--- OUTSIDE RECORDS SUMMARY | 2024-11-02 01:07 | XMS_ITS | Clinical Summary ---
Author Organization [facility] Address 8 [facility] [address] [place] [address] Phone Care Team Providers Care Diesel Service Technician Name Role Phone Jarred Turner MD Unavailable [phone] Jasper Baptiste DO Unavailable [phone] Aicha Johnson MD Unavailable [phone] Ruthie Toussaint MD Primary Care Provider [phone] Avelino Linares MD Unavailable [phone] Allergies Active Allergy Reactions Criticality Noted Date [...] tablet Active gabapentin (NEURONTIN) 300 mg capsuleIndication s:Iwboi-Ylbyp-Ukn du disease (HCC) TAKE 2 CAPSULES BY MOUTH EVERY DAY AT NIGHT 180 capsule 1 Active atorvastatin (LIPITOR) 20 mg tablet TAKE 1 TABLET BY MOUTH EVERY DAY 90 tablet 1 Active sp-oih-hatsx-K1-l ycopen-lutein 150-17-383-300 mcg tablet Take 1 tablet/capsule by mouth daily Active isosorbide mononitrate ER (IMDUR) 60 mg 24 hr tabletIndications :Coronary artery disease involving northern che[place] coronary artery of northern che[place]enne heart with angina pectoris (HCC),Dyspnea, unspecified type [...] management of unspecified implanted device 07/19/2024 A-fib ([facility]) 2024 Atrial fibrillation ([facility]) 02/18/2024 Simple chronic bronchitis 09/06/2023 Pulmonary air trapping 04/27/2023 Iron deficiency anemia due to chronic blood loss 03/18/2023 Epistaxis 06/12/2021 Cigarette nicotine dependence in remission 06/18 Personal history of thromboembolic disease 06/01 Anxiety 06/01/2019 Non-seasonal allergic rhinitis due to pollen Multiple pulmonary nodules 06/01/2019 Chronic cough 06/01/2019 Shortness of breath 06/01/2019 Centrilobular emphysema 06/01/2019 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 Pulmonary [address] [facility] [address] [place] [address] [place] [address] Ramon Schulte MD HHT (hereditary hemorrhagic telangiectasia) ([facility]) (Primary Dx); Chronic cough 10/27/2024 1:30 PM RIPRAP WORKER Office Visit [facility] [address] [place] [address] [address] [place] [phone] Jasper Baptiste, HHT (hereditary hemorrhagic telangiectasia) (CMS/HCC) (HCC); Iron deficiency anemia due to chronic blood loss; Simple chronic bronchitis (HCC); Atrial fibrillation, persistent (HCC) 10/27/2024 12:30 PM RIPRAP WORKER Lab [facility] at [address] [address] HHT (hereditary hemorrhagic telangiectasia) (CMS/HCC) (HCC); Iron deficiency anemia due to chronic blood loss; Hereditary hemorrhagic telangiectasia (HCC); Abnormal findings on diagnostic imaging of other specified body structures 10/23/2024 Orders Only [facility] [address] [place] [phone] Lillian Red RN Hereditary hemorrhagic telangiectasia (HCC) (Primary Dx); Abnormal findings on diagnostic imaging of other specified body structures 10/19/2024 Orders Only [facility] [address] [place] [phone] Jasper Baptiste DO 10/19/2024 Telephone [facility] [address] [place] [phone] Majo Collins CMA 09/25/2024 Telephone [facility] [address] [place] [address] [phone] Judy Castillo RN 09/20/2024 1:12 PM RIPRAP WORKER - 09/20/2024 11:59 PM RIPRAP WORKER Hospital Encounter [facility] Medical Office Building [address] [place] [id number] HHT (hereditary hemorrhagic telangiectasia) (CMS/HCC) (HCC); Iron deficiency anemia due to chronic blood loss; Pulmonary nodules; Thoracic aortic aneurysm without rupture, unspecified part (HCC); Liver lesion, left lobe; Liver lesion, right lobe Discharge Disposition: Discharge to home or self care 09/20/2024 Orders Only [facility] [address] [facility] [address] [place] [address] Fei Lowe MD 09/19/2024 Orders Only [facility] [address] [place] [address] [address] [place] [phone] Fei Lowe MD 09/13/2024 10:30 AM RIPRAP WORKER Office Visit [facility] [address] [facility] [address] [place] [address] Yvonne Grigsby NP CAD in northern cheyenne artery (Primary Dx); Atrial fibrillation, persistent (HCC); Presence of Watchman left atrial appendage closure device; Hyperlipidemia, unspecified hyperlipidemia type; Tobacco abuse 09/13/2024 Telephone [facility] [address] [facility] [address] [place] [phone] Peterson Dawson MD 08/25/2024 10:15 AM RIPRAP WORKER Office Visit [facility] [address] [place] [address] [address] [place] [phone] Jasper Baptiste, HHT (hereditary hemorrhagic telangiectasia) (CMS/HCC) (HCC) (Primary Dx); Iron deficiency anemia due to chronic blood loss; Pulmonary nodules; Thoracic aortic aneurysm without rupture, unspecified part (HCC); Liver lesion, left lobe; Liver lesion, right lobe 08/25/2024 9:15 AM RIPRAP WORKER Lab [facility] at [facility] [address] [place] [address] Iron deficiency anemia due to chronic blood loss 08/25/2024 Orders Only [facility] Pulmonary [address] 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) 08/15/2024 10:30 AM RIPRAP WORKER Office Visit [facility] Pulmonology [address] [facility] [address] [place] [address] Hi Reynolds MD Multiple pulmonary nodules (Primary Dx); Chronic cough; Cigarette nicotine dependence in remission; HHT (hereditary hemorrhagic telangiectasia) (CMS/HCC) (HCC); Anxiety; Non-seasonal allergic rhinitis due to pollen; Centrilobular emphysema (HCC); Simple chronic bronchitis (HCC); Atrial fibrillation, unspecified type (HCC); Pulmonary air trapping from Last 3 Months Immunizations Name Administration [...] disease DVT (deep venous thrombosis) (CMS/HCC) (HCC) Lgkfh-Ekgzi-Ydspb disease (HCC) Epistaxis HHT (hereditary hemorrhagic telangiectasia) [...] on file Legal Sex Male 4:45 AM RIPRAP WORKER Gender Identity Not on file Sexual Orientation Not on file Obstetrics History Last Filed Vital Signs Vital Sign Reading Time Taken Comments Blood Pressure 120/86 10/27/2024 1:20 PM RIPRAP WORKER Pulse 64 10/27/2024 1:20 PM RIPRAP WORKER Temperature 36.9 ??C (98.4 ??F) 10/27/2024 1:20 PM CS T Respiratory Rate 18 10/27/2024 1:20 PM RIPRAP WORKER Oxygen Saturation 96% 10/27/2024 1:20 PM RIPRAP WORKER Inhaled Oxygen Concentration - - Weight 67.9 kg (149 lb 12.8 oz) 10/27/2024 1:20 PM RIPRAP WORKER Height 184.2 cm (6' 0.5 ) 10/27/2024 1:20 PM RIPRAP WORKER w shoes Body Mass Index 20.04 10/27/2024 1:20 PM RIPRAP WORKER Plan of Treatment Health Maintenance Due Date [...] 08/06, 10/04/2015 Medical Devices Implanted Type Area Side Panel Padder Device Identifier Shelf Expiration Date Model / Serial / Lot [employer] Gabriela Device Closure 24mm Lt Watchman Flx Pro Cardiac Strl La [id number] - S0 - [id number] Implanted:Qty: 1 on 2024 by Victoriano Loyola MD at [facility] Left Atrial Appendage Occluder N/A: Atrial Appendage [employer] Gabriela 12/02/2026 [id number] / 0 / [id number] [employer] System Closure Repair Femoral Artery Suture Mediated Perclose Prostyle 56347-39 - S0 - [id number] Implanted:Qty: 1 on 2024 by Victoriano Loyola MD at [facility] Vascular Closure Device N/A: Femoral [employer] 12/01/2025 70352-18 / 0 / [id number] [employer] System Closure Repair Femoral Artery Suture Mediated Perclose Prostyle 24014-69 - S0 - [id number] Implanted:Qty: 1 on 2024 by Victoriano Loyola MD at [facility] Vascular Closure Device N/A: Femoral [employer] 12/01/2025 [id number] / 0 / [id number] [employer] [id number] Coil Embolization Wellington Micro[employer] Nooksack L14cm Od3mm .018 In Catheter - [id number] Implanted:Qty: 1 on 11/17/2021 at [facility] [employer] 11/09/2022 [id number] / / [id number] [employer] [id number] Coil Embolization [employer] N[place]sack L14cm Od3mm .018 In Catheter - [id number] Implanted:Qty: 1 on 11/17/2021 at [facility] [employer] 03/19/2022 [id number] / / [id number] [employer] [id number] Coil Embolization [employer] N[place]sack L14cm Od3mm .018 In Catheter - [id number] Implanted:Qty: 1 on 11/17/2021 at [facility] [employer] 03/19/2022 [id number] / / [id number] [employer] [id number] Coil Embolization [employer] Nooksack L14cm Od3mm .018 In Catheter - [id number] Implanted:Qty: 1 on 11/17/2021 at [facility] [employer] 03/02/2023 [id number] / / [id number] Procedures Procedure Name Priority Date/Time Associated Diagnosis Comments EGFR Routine 10/27/2024 12:41 PM RIPRAP WORKER Hereditary hemorrhagic telangiectasia (HCC) DIFFERENTIAL AUTO Routine 10/27/2024 12:41 PM RIPRAP WORKER HHT (hereditary hemorrhagic telangiectasia) (HCC) Iron deficiency anemia due to chronic blood loss COMPREHENSIVE METABOLIC PANEL Routine 10/27/2024 12:41 PM RIPRAP WORKER Hereditary hemorrhagic telangiectasia (HCC) TSH Routine 10/27/2024 12:41 PM RIPRAP WORKER Hereditary hemorrhagic telangiectasia (HCC) Abnormal findings on diagnostic imaging of other specified body structures CBC WITH AUTO DIFFERENTIAL Routine 10/27/2024 12:41 PM RIPRAP WORKER HHT (hereditary hemorrhagic telangiectasia) (CMS/HCC) (HCC) Iron deficiency anemia due to chronic blood loss FERRITIN Routine 10/27/2024 12:41 PM RIPRAP WORKER HHT (hereditary hemorrhagic telangiectasia) (CMS/HCC) (HCC) Iron deficiency anemia due to chronic blood loss RETICULOCYTES Routine 10/27/2024 12:41 PM RIPRAP WORKER HHT (hereditary hemorrhagic telangiectasia) (CMS/HCC) (HCC) Iron deficiency anemia due to chronic blood loss CBC WITH AUTO DIFFERENTIAL Routine 10/19/2024 3:[address] CHEST ABDOMEN W CONTRAST Schedule Routine, Read Routine (OP Routine) 09/20/2024 1:25 PM RIPRAP WORKER HHT (hereditary hemorrhagic telangiectasia) (CMS/HCC) (HCC) Iron deficiency anemia due to chronic blood loss Pulmonary nodules Thoracic aortic aneurysm without rupture, unspecified part (HCC) Liver lesion, left lobe Liver lesion, right lobe CBC WITH AUTO DIFFERENTIAL Routine 09/19/2024 1:49 PM RIPRAP WORKER RETICULOCYTE COUNT Routine 09/19/2024 10:21 AM RIPRAP WORKER FERRITIN Routine 09/19/2024 8:17 AM RIPRAP WORKER EGFR Routine 08/25/2024 9:15 AM RIPRAP WORKER Iron deficiency anemia due to chronic blood loss DIFFERENTIAL AUTO Routine 08/25/2024 9:1 5 AM RIPRAP WORKER Iron deficiency anemia due to chronic blood loss CBC WITH AUTO DIFFERENTIAL Routine 08/25/2024 9:15 AM RIPRAP WORKER Iron deficiency anemia due to chronic blood loss COMPREHENSIVE METABOLIC PANEL Routine 08/25/2024 9:15 AM RIPRAP WORKER Iron deficiency anemia due to chronic blood loss FERRITIN Routine 08/25/2024 9:15 AM RIPRAP WORKER Iron deficiency anemia due to chronic blood loss IRON PROFILE W/ IBC Routine 08/25/2024 9 :15 AM RIPRAP WORKER Iron deficiency anemia due to chronic blood loss from Last 3 Months Results * eGFR (10/27/2024 12:41 PM RIPRAP WORKER) [facility] eGFR 85 >=60 mL/min/1. 73 m2 Comment: [...] was last reviewed 2021. Testing performed by: [address] [address] Blood 10/27/2024 12:4 1 PM RIPRAP WORKER 10/27/2024 12:44 PM RIPRAP WORKER Jasper Baptiste DO LAB BLOOD ORDERABLES Final R esult ABHIJEET [address] [facility] Department [place] [address] * Differential, auto (10/27/2024 12:41 PM RIPRAP WORKER) Neutrophil abs 3.6 1.5 - 6.5 K/cumm Comment:Testing performed by : [address] [address] Imm gran abs 0.0 0.0 - 0.1 K/cumm ABHIJEET Comment:Testing performed by : [address] [address] Lymphocyte abs 1.8 0.8 - 3.3 K/cumm ABHIJEET Comment:Testing performed by : [address] [address] Monocyte abs 0.6 0.2 - 0.8 K/cumm ABHIJEET Comment:Testing performed by : [address] [address] Eosinophil abs 0.2 0.0 - 0.5 K/cumm ABHIJEET Comment:Testing performed by : [address] [address] Basophil abs 0.1 0.0 - 0.1 K/cumm ABHIJEET Comment:Testing performed by : [address] [address] Neutrophil pct 57.6 % [facility] Comment: Interpretive Data Percent cell count reference ranges are not reported, since discordance with absolute values may lead to misinterpretation of CBC data. Current Interpretive Data was last revised on 2018. Testing performed by: [address] [address] Imm gran pct 0.2 % [facility] Comment: Interpretive Data Percent cell count reference ranges are not reported, since discordance with absolute values may lead to misinterpretation of CBC data. Current Interpretive Data was last revised on 2018. Testing performed by: [address] [address] Lymphocyte pct 28.2 % [facility] Comment: Interpretive Data Percent cell count reference ranges are not reported, since discordance with absolute values may lead to misinterpretation of CBC data. Current Interpretive Data was last revised on 2018. Testing performed by: [address] [address] Monocyte pct 9.4 % [facility] Comment: Interpretive Data Percent cell count reference ranges are not reported, since discordance with absolute values may lead to misinterpretation of CBC data. Current Interpretive Data was last revised on 2018. Testing performed by: [address] [address] Eosinophil pct 3.5 % [facility] Comment: Interpretive Data Percent cell count reference ranges are not reported, since discordance with absolute values may lead to misinterpretation of CBC data. Current Interpretive Data was last revised on 2018. Testing performed by: [address] [address] Basophil pct 1.1 % [facility] Comment: Interpretive Data Percent cell count reference ranges are not reported, since discordance with absolute values may lead to misinterpretation of CBC data. Current Interpretive Data was last revised on 2018. Testing performed by: [address] [address] Blood 10/27/2024 12:4 1 PM RIPRAP WORKER 10/27/2024 12:44 PM RIPRAP WORKER Jasper Baptiste DO LAB BLOOD ORDERABLES Final [facility] esult [facility] [address] [facility] Department [place] [address] * (ABNORMAL) CBC with auto differential (10/27/2024 12:41 PM RIPRAP WORKER) Pathologist [facility] WBC 6.3 3.8 - 9.9 K/cumm Comment:Testing performed by : [address] [address] Hgb 11.9(L) 13.0 - 17.5 g/dL ABHIJEET Comment:Testing performed by : [address] [address] Hct 36.1(L) 38.9 - 50.3 % ABHIJEET Comment:Testing performed by : [address] [address] Plt 254 150 - 400 K/cumm ABHIJEET Comment:Testing performed by : [address] [address] MPV 9.8 9.1 - 12.3 fL ABHIJEET Comment:Testing performed by : [address] [address] RBC 3.81(L) 4.30 - 5.80 M/cumm ABHIJEET Comment:Testing performed by : [address] [address] MCV 94.8 81.3 - 96.4 fL ABHIJEET Comment:Testing performed by : [address] [address] MCH 31.2 27.1 - 33.3 pg ABHIJEET Comment:Testing performed by : [address] [address] MCHC 33.0 32.3 - 35.7 g/dL ABHIJEET HARRIS Comment:Testing performed by : [address] [place]., [address] RDW CV 15.2(H) 11.1 - 14.9 % ABHIJEET Comment:Testing performed by : [address] [address] RDW SD 52.9(H) 35.7 - 48.1 fL ABHIJEET HARRIS Comment:Testing performed by : [address] [address] NRBC abs 0.00 0.00 - 0.01 K/cumm ABHIJEET Comment:Testing performed by : [address] [address] Blood 10/27/2024 12:4 1 PM RIPRAP WORKER 10/27/2024 12:44 PM RIPRAP WORKER Jasper Baptiste DO LAB BLOOD ORDERABLES Final R esult Performing Organization Address [facility] Co de Phone Number MAR[address] [place] [address] * Reticulocyte Count (10/27/2024 12:41 PM RIPRAP WORKER) Retics, absolute 0.058 0.020 - 0.087 M/cumm Comment:Testing performed by : [address] [address] Retics 1.5 0.4 - 2.9 % ABHIJEET Comment:Testing performed by : [address] [address] Reticulocyte Hgb 34.2 30.5 - 38.0 pg ABHIJEET Comment:Testing performed by : [address] [address] Blood 10/27/2024 12:4 1 PM RIPRAP WORKER 10/27/2024 12:44 PM RIPRAP WORKER Jasper Baptiste DO LAB BLOOD ORDERABLES Final R esult Performing Organization Address [facility] Co de Phone Number [address] [place] [address] * TSH (10/27/2024 12:41 PM RIPRAP WORKER) [facility] Thyroid Stimulating Hormone 1.78 0.30 - 4.20 mcIUnit/mL Comment:Testing performed by : [address] [address] Blood 10/27/2024 12:4 1 PM RIPRAP WORKER 10/27/2024 1:44 PM RIPRAP WORKER Jasper Baptiste DO LAB BLOOD ORDERABLES Final R esult Performing Organization Address City/[facility] Co de Phone Number [address] Department [place] [address] * Ferritin (10/27/2024 12:41 PM RIPRAP WORKER) [facility] Ferritin 69 30 - 400 ng/mL Comment:Testing performed by : [address] [address] Blood 10/27/2024 12:4 1 PM RIPRAP WORKER 10/27/2024 1:44 PM RIPRAP WORKER Jasper Baptiste DO LAB BLOOD ORDERABLES Final R esult Performing Organization Address City/[facility] Co de Phone Number [address] [place] [address] * Comprehensive metabolic panel (10/27/2024 12:41 PM RIPRAP WORKER) [facility] Sodium 140 135 - 145 mmol/L Comment:Testing performed by : [address] [address] Potassium, pl 4.7 3.3 - 4.9 mmol/L ABHIJEET HARRIS Comment:Testing performed by : [address] [address] Chloride 104 97 - 110 mmol/L ABHIJEET Comment:Testing performed by : [address] [address] CO2 27 22 - 32 mmol/L ABHIJEET HARRIS Comment:Testing performed by : [address] [place]., [address] Anion gap 9 2 - 15 mmol/L ABHIJEET Comment:Testing performed by : [address] [address] BUN 11 6 - 25 mg/dL ABHIJEET Comment:Testing performed by : [address], [place]., [address] Creatinine 1.00 0.80 - 1.30 mg/dL ABHIJETE Comment:Testing performed by : [address] [address] Glucose 122 70 - 199 mg/dL ABHIJEET [...] was last revised 2022. Testing performed by: [address] [address] Calcium 9.1 8.5 - 10.3 mg/dL ABHIJEET Comment:Testing performed by : [address] [address] Bilirubin, total 0.3 0.1 - 1.2 mg/dL ABHIJEET Comment:Testing performed by : [address] [address] Protein, pl 6.8 6.5 - 8.5 g/dL ABHIJEET Comment:Testing performed by : [address] [address] Albumin 3.9 3.5 - 5.0 g/dL ABHIJEET Comment:Testing performed by : [address] [address] Alk phos 88 40 - 130 Units/L ABHIJEET Comment:Testing performed by : [address] [address] ALT 11 7 - 55 Units/L ABHIJEET Comment:Testing performed by : [facility], [address] [place] [address]., [address] AST 23 10 - 50 Units/L ABHIJEET Comment:Testing performed by : [facility], [address] [place] [address]., [address] Blood 10/27/2024 12:4 1 PM RIPRAP WORKER 10/27/2024 12:44 PM RIPRAP WORKER Jasper Baptiste DO LAB BLOOD ORDERABLES Final R esult Performing Organization Address City/[facility]/ZIP Co de Phone Number ABHIJEET [facility] Department [place] [address] * (ABNORMAL) CBC with auto differential (10/19/2024 3:20 PM RIPRAP WORKER) Blood Jasper Baptiste DO LAB BLOOD ORDERABLES Final R esult Performing Organization Address [facility] Co de Phone Number [facility] [address] [phone] * CT Chest Abdomen W Contrast (09/20/2024 1:25 PM RIPRAP WORKER) Anatomical Region Laterality Modality Body N/A Computed Tomogra phy 09/25/2024 1:12 PM RIPRAP WORKER Narrative 09/25/2024 2:00 PM RIPRAP WORKER EXAM DESCRIPTION: ?? CT CHEST ABDOMEN [...] concerning for constipation. Findings were discussed with ??. ??Oliva's nurse, Jesus Castillo RN, ??by Dr. Montes at ??14:00 ??hours on ??09/25/2024 . THIS IS AN ELECTRONICALLY VERIFIED FINAL REPORT 09/25/2024 2:00 PM - Electronically signed by ??James Montes D.O. PS: PS D: ??09/25/2024 2:00 PM T: ??09/25/2024 2:00 PM Report ID: [id number] Reading Location: ??[id number] Procedure Note James Montes, DO - 09/25/2024 [...] James Montes D.O. PS: PS Report ID: [id number] Reading Location: [id number] Jasper Baptiste DO IMG CT PROCEDURES Final Resu lt * CBC with auto differential (09/19/2024 1:49 PM RIPRAP WORKER) Blood [facility] Provider MD LAB BLOOD ORDERABLES Leticia l Result * Reticulocyte Count (09/19/2024 10:21 AM RIPRAP WORKER) [facility] Provider MD LAB BLOOD ORDERABLES Leticia l Result * Ferritin (09/19/2024 8:17 AM RIPRAP WORKER) Blood [facility] Provider MD LAB BLOOD ORDERABLES Leticia l Result * eGFR (08/25/2024 9:15 AM RIPRAP WORKER) Pathologist [facility] eGFR >90 >=60 mL/min/1. 73 m2 Comment: [...] was last reviewed 2021. Testing performed by: [address] [address] Blood 08/25/2024 9:15 AM RIPRAP WORKER 08/25/2024 9:17 AM RIPRAP WORKER us Jasper Baptiste DO LAB BLOOD ORDERABLES Final R esult [facility] [address] [facility] Department [place] [address] * Differential, auto (08/25/2024 9:15 AM RIPRAP WORKER) Neutrophil abs 2.6 1.5 - 6.5 K/cumm Comment:Testing performed by : [address] [address] Imm gran abs 0.0 0.0 - 0.1 K/cumm ABHIJEET Comment:Testing performed by : [address] [address] Lymphocyte abs 1.5 0.8 - 3.3 K/cumm ABHIJEET Comment:Testing performed by : [address] [address] Monocyte abs 0.6 0.2 - 0.8 K/cumm ABHIJEET Comment:Testing performed by : [address] [address] Eosinophil abs 0.2 0.0 - 0.5 K/cumm [facility] Comment:Testing performed by : [address] [address] Basophil abs 0.0 0.0 - 0.1 K/cumm [facility] Comment:Testing performed by : [address] [address] Neutrophil pct 52.6 % [facility] Comment: Interpretive Data Percent cell count reference ranges are not reported, since discordance with absolute values may lead to misinterpretation of CBC data. Current Interpretive Data was last revised on 2018. Testing performed by: [address] [address] Imm gran pct 0.4 % [facility] Comment: Interpretive Data Percent cell count reference ranges are not reported, since discordance with absolute values may lead to misinterpretation of CBC data. Current Interpretive Data was last revised on 2018. Testing performed by: [address] [address] Lymphocyte pct 29.8 % [facility] Comment: Interpretive Data Percent cell count reference ranges are not reported, since discordance with absolute values may lead to misinterpretation of CBC data. Current Interpretive Data was last revised on 2018. Testing performed by: [address] [address] Monocyte pct 11.9 % [facility] Comment: Interpretive Data Percent cell count reference ranges are not reported, since discordance with absolute values may lead to misinterpretation of CBC data. Current Interpretive Data was last revised on 2018. Testing performed by: [address] [address] Eosinophil pct 4.7 % [facility] Comment: Interpretive Data Percent cell count reference ranges are not reported, since discordance with absolute values may lead to misinterpretation of CBC data. Current Interpretive Data was last revised on 2018. Testing performed by: [address] [address] Basophil pct 0.6 % [facility] Comment: Interpretive Data Percent cell count reference ranges are not reported, since discordance with absolute values may lead to misinterpretation of CBC data. Current Interpretive Data was last revised on 2018. Testing performed by: [address] [address] Blood 08/25/2024 9:15 AM RIPRAP WORKER 08/25/2024 9:17 AM RIPRAP WORKER Jasper Baptiste LAB BLOOD ORDERABLES Final R esult Performing Organization Address [facility] de Phone Number [place] [id number] [facility] [place] [address] * (ABNORMAL) Iron profile w/ IBC (08/25/2024 9:15 AM RIPRAP WORKER) Pathologist [facility] Iron 42(L) 50 - 150 mcg/dL Comment:Testing performed by : [address] [address] TIBC 249(L) 250 - 400 mcg/dL ABHIJEET Comment:Testing performed by : [address] [address] Transferrin saturation 17(L) 20 - 50 % ABHIJEET Comment:Testing performed by : [address] [address] Blood 08/25/2024 9:15 AM RIPRAP WORKER 08/25/2024 10:01 AM RIPRAP WORKER Jasper Baptiste LAB BLOOD ORDERABLES Final R [facility] Performing Organization Address [facility] de Phone Number [place] [id number] [facility] [place] [address] * (ABNORMAL) CBC with auto differential (08/25/2024 9:15 AM RIPRAP WORKER) Pathologist [facility] WBC 4.9 3.8 - 9.9 K/cumm Comment:Testing performed by : [address] [address] Hgb 11.0(L) 13.0 - 17.5 g/dL ABHIJEET Comment:Testing performed by : [address] [address] Hct 33.6(L) 38.9 - 50.3 % ABHIJEET Comment:Testing performed by : [address] [address] Plt 234 150 - 400 K/cumm ABHIJEET Comment:Testing performed by : [address] [address] MPV 9.4 9.1 - 12.3 fL ABHIJEET Comment:Testing performed by : [address] [address] RBC 3.58(L) 4.30 - 5.80 M/cumm ABHIJEET Comment:Testing performed by : [address], [address] MCV 93.9 81.3 - 96.4 fL ABHIJEET Comment:Testing performed by : [address] [address] MCH 30.7 27.1 - 33.3 pg ABHIJEET Comment:Testing performed by : [address], [address] MCHC 32.7 32.3 - 35.7 g/dL ABHIJEET Comment:Testing performed by : [address], [address] RDW CV 18.4(H) 11.1 - 14.9 % ABHIJEET Comment:Testing performed by : [address], [address] RDW SD 63.8(H) 35.7 - 48.1 fL ABHIJEET Comment:Testing performed by : [address] [address] NRBC abs 0.00 0.00 - 0.01 K/cumm ABHIJEET Comment:Testing performed by : [address] [address] Blood 08/25/2024 9:15 AM RIPRAP WORKER 08/25/2024 9:17 AM RIPRAP WORKER us Jasper Baptiste DO LAB BLOOD ORDERABLES Final R esult ABHIJEET [address] [facility] [place] [address] * Ferritin (08/25/2024 9:15 AM RIPRAP WORKER) Pathologist [facility] Ferritin 113 30 - 400 ng/mL Comment:Testing performed by : [address] [address] Blood 08/25/2024 9:15 AM RIPRAP WORKER 08/25/2024 10:01 AM RIPRAP WORKER Jasper Baptiste DO LAB BLOOD ORDERABLES Final R esult Performing Organization Address [facility] Co de Phone Number ABHIJEET [address] [place] [address] * (ABNORMAL) Comprehensive metabolic panel (08/25/2024 9:15 AM RIPRAP WORKER) [facility] Sodium 141 135 - 145 mmol/L Comment:Testing performed by : [address] [address] Potassium, pl 4.0 3.3 - 4.9 mmol/L ABHIJEET Comment:Testing performed by : [address] [address] Chloride 105 97 - 110 mmol/L ABHIJEET Comment:Testing performed by : [address] [address] CO2 26 22 - 32 mmol/L ABHIJEET Comment:Testing performed by : [address] [address] Anion gap 10 2 - 15 mmol/L ABHIJEET Comment:Testing performed by : [address] [address] BUN 5(L) 6 - 25 mg/dL ABHIJEET Comment:Testing performed by : [address] [address] Creatinine 0.90 0.80 - 1.30 mg/dL ABHIJEET Comment:Testing performed by : [address] [address] Glucose 99 70 - 199 mg/dL ABHIJEET [...] was last revised 2022. Testing performed by: [address] [address] Calcium 8.7 8.5 - 10.3 mg/dL ABHIJEET Comment:Testing performed by : [address] [address] Bilirubin, total 0.2 0.1 - 1.2 mg/dL ABHIJEET Comment:Testing performed by : [address] [address] Protein, pl 6.4(L) 6.5 - 8.5 g/dL ABHIJEET Comment:Testing performed by : [address] [address] Albumin 3.7 3.5 - 5.0 g/dL ABHIJEET Comment:Testing performed by : [address] [address] Alk phos 76 40 - 130 Units/L ABHIJEET Comment:Testing performed by : [address] [address] ALT 11 7 - 55 Units/L ABHIJEET Comment:Testing performed by : [address] [address] AST 21 10 - 50 Units/L ABHIJEET Comment:Testing performed by : [address] [address] Blood 08/25/2024 9:15 AM RIPRAP WORKER 08/25/2024 9:17 AM RIPRAP WORKER Jasper Baptiste DO LAB BLOOD ORDERABLES Final R esult [facility] [address] [facility] [place] [address] from Last 3 Months Insurance MEDICARE [facility] MEDICARE MEDICARE Advance Directives For more information, please contact: [phone] Documents on File Type Date Recorded Patient File Machine Operator Expl anation ADVANCE DIRECTIVE 01/16/2013 12:00 AM [facility] [employer] * Full Code (Latest Code Status on File) Date Activated Date Inactivated Comments 2024 11:37 AM 03/29/2024 4:34 PM * Full Code Date Activated Date Inactivated Comments 11/17/2021 2:31 PM 11/17/2021 8:17 PM * Full Code Date Activated Date Inactivated Comments 07/29/2021 8:06 PM 07/30/2021 1:05 AM Care Teams Diesel Service Technician Relationship Specialty Start Date End Date Ruthie Toussaint MD [address] [place] [address] [place] [address] PCP - General Family Medicine 06/09/24 Jarred Turner MD [address] [address] Consulting Physician Urology 03/20/19 Jasper Baptiste DO [address] [place] [address] Medical Oncologist/Hematologis t Hematology and Oncology 11/12/20 Aicha Johnson MD [facility] [address] [facility] [address] [place] [address] Consulting Physician Otolaryngology 07/29/21 Avelino Linares MD [address] [place] [address] Consulting Physician Urology 10/27/24
--- OUTSIDE RECORDS SUMMARY | 2024-11-02 01:07 | XMS_ITS | Clinical Summary ---
Author Organization [facility] Address [address] [place] [address]. [place] [address] [place] [address] Care Team Providers Care Customer Support Executive Name Role Phone Jasper Baptiste MD Primary Care Provider [phone] Allergies Active Allergy Reactions Criticality Noted Date [...] Department Care Team Description 10/19/2024 9:44 AM CATERING CONVENTION SERVICES MANAGER - 10/19/2024 11:59 PM [facility] Hospital Encounter [facility] [address] [place] [id number] Jasper Baptiste MD Discharge Disposition: Home or Self Care (Routine Discharge) 10/19/2024 Orders Only [facility] [address] [place] [address] Jasper Baptiste MD 10/19/2024 Travel 09/19/2024 9:45 AM CATERING CONVENTION SERVICES MANAGER - 09/19/2024 11:59 PM CATERING CONVENTION SERVICES MANAGER Hospital Encounter [facility] [address] [place] [address] Jasper Bpatiste MD Discharge Disposition: Home or Self Care (Routine Discharge) 09/19/2024 Orders Only [facility] [address] [place] [address] Jasper Baptiste MD 09/19/2024 Travel from Last 3 Months Social History Tobacco Use Types Packs/Day Years Used Date Smoking Tobacco: Former Cigarettes 0.5 40 1 974 - 2010 Tobacco Cessation:Counseling Given: Not Answered Alcohol Use Standard Drinks/Week Comments Never 0 (1 standard drink = 0.6 oz pur e alcohol) [facility] Utilities Answer Date Recorded In the past 12 months has [facility] [employer], gas, oil, or water [employer] threatened to shut off services in your [...] place to sleep or slept in a alf (including now)? No 11/30/2023 Sex and Gender Information Value Date Recorded Sex Assigned at Male 10/19/2024 9:41 AM CATERING CONVENTION SERVICES MANAGER Legal Sex Male 4:29 PM CDT Gender [...] CDT Office Visit [facility], [address] [place] [address] Jasper Byrd MD [facility]. 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) RETICULOCYTE CT, AUTO Routine 09/19/2024 9:52 AM CATERING CONVENTION SERVICES MANAGER 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 chronic blood loss CBC W/DIFF AUTOMATED Routine 09/19/2024 9:52 AM CATERING CONVENTION SERVICES MANAGER 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 chronic blood loss FERRITIN Routine 09/19/2024 9:52 AM CATERING CONVENTION SERVICES MANAGER 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 chronic blood loss CT CHEST W CON Routine 08/05/2023 10:08 AM CDT 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 RETICULOCYTE COUNT 2.1 0.4 - 3.8 % 10/19/2024 10:13 AM CATERING CONVENTION SERVICES MANAGER [facility] ABSOLUTE RETICULOCYTE 0.08 0.02 - 0.13 x10'6/uL 10/19/2024 10:13 AM CATERING CONVENTION SERVICES MANAGER [facility] IMMATURE RETIC FRACTION 14.7(H) 2.3 - 13.4 % 10/19/2024 10:13 AM CATERING CONVENTION SERVICES MANAGER [facility] RETIC HGB 33.4 28.2 - 36.6 PG 10/19/2024 10:13 AM CATERING CONVENTION SERVICES MANAGER [facility] 10/19/2024 9:50 AM CATERING CONVENTION SERVICES MANAGER us Jasper Baptiste MD LABORATORY Final Result [facility] [address] [place] [address] [place] [address], * (ABNORMAL) CBC W/DIFF AUTOMATED (10/19/2024 9:50 AM [facility]) Only the most recent of2 resultswithin the time period is included. WBC 7.10 4.50 - 11.00 x10'3/uL 10/19/2024 10:13 AM [facility] RBC 3.75(L) 4.50 - 5.90 x10'6/uL 10/19/2024 10:13 AM [facility] HGB 11.8(L) 14.0 - 18.0 G/DL 10/19/2024 10:13 AM [facility] HCT 36.0(L) 43.0 - 54.0 % 10/19/2024 10:13 AM [facility] MCV 96.0 80.0 - 100.0 FL 10/19/2024 10:13 AM [facility] MCH 31.5 26.0 - 34.0 PG 10/19/2024 10:13 AM [facility] MCHC 32.8 31.0 - 37.0 G/DL 10/19/2024 10:13 AM [facility] RDW 15.6(H) 11.6 - 14.8 % 10/19/2024 10:13 AM [facility] PLT 263 130 - 400 x10'3/uL 10/19/2024 10:13 AM [facility] MPV 9.8 7.0 - 12.0 FL 10/19/2024 10:13 AM [facility] CBC COMMENT AUTOMATED RBC MORPHOLOGY AND PLATELET EVALUATION NORMAL 10/19/2024 10:13 AM [facility] NEUTROPHILS % 65.4 40.0 - 74.0 % 10/19/2024 10:13 AM [facility] LYMPHOCYTES % 20.8 14.0 - 46.0 % 10/19/2024 10:13 AM [facility] MONOCYTES % 9.7 4.0 - 13.0 % 10/19/2024 10:13 AM [facility] EOSINOPHILS 3.0 0.0 - 7.0 % 10/19/2024 10:13 AM [facility] BASOPHILS 0.8 0.0 - 3.0 % 10/19/2024 10:13 AM [facility] IMMATURE GRANS % 0.3 0.0 - 0.43 % 10/19/2024 10:13 AM [facility] NRBC % 0.0 % 10/19/2024 10:13 AM [facility] ABS. NEUTROPHILS TOTAL 4.64 1.69 - 7.81 x10'3/uL 10/19/2024 10:13 AM [facility] ABS. LYMPHOCYTES 1.48 0.21 - 5.42 x10'3/uL 10/19/2024 10:13 AM [facility] ABS. MONOCYTES 0.69 0.04 - 1.37 x10'3/uL 10/19/2024 10:13 AM [facility] ABS. EOSINOPHILS 0.21 0.00 - 0.68 x10'3/uL 10/19/2024 10:13 AM [facility] ABS. BASOPHILS 0.06 0.00 - 0.08 x10'3/uL 10/19/2024 10:13 AM [facility] ABS. IMMATURE GRANULOCYTES 0.02 0.00 - 0.06 x10'3/uL 10/19/2024 10:13 AM [facility] ABS. NUCLEATED RBC'S 0.00 0.00 - 0.01 x10'3/uL 10/19/2024 10:13 AM [facility] 10/19/2024 9:50 AM CATERING CONVENTION SERVICES MANAGER us Jasper Baptiste MD LABORATORY Final Result [facility] [address] [place] [address], [place] * FERRITIN (10/19/2024 9:50 AM CATERING CONVENTION SERVICES MANAGER) Only the most recent of2 resultswithin the time period is included. FERRITIN 38.6 8.0 - 388.0 NG/ML 10/19/2024 3:33 PM CATERING CONVENTION SERVICES MANAGER [facility] 10/19/2024 9:50 AM CATERING CONVENTION SERVICES MANAGER us Jasper Baptiste MD LABORATORY Final Result [facility] [address] [place] [address], from Last 3 Months Insurance MEDICARE MEDICAID Advance Directives * Full Code (Latest Code Status on File) Date Activated Date Inactivated Comments 11/30/2023 8:34 PM 12/02/2023 3:57 PM Care Teams Customer Support Executive Relationship Specialty Start Date End Date Jasper Baptiste MD [facility] [address] MEDICAL OFF[facility]ILDING [address] [place] [address] PCP - General INTERNAL MEDICINE 11/26/21
--- OUTSIDE RECORDS SUMMARY | 2024-11-02 01:08 | XMS_ITS | Encounter Summary ---
Author Organization [facility] Facility Care Team Providers Care Chimney Builder Name Role Phone Kevin Barrettkatherin Sparks LPN Unavailable [phone] Gustavo Carter DO Primary Care Pr ovider Gustavo Carter DO Primary Care Pr ovider Jarred Turner MD Unavailable [phone] Jasper Baptiste DO Unavailable [phone] Aicha Johnson MD Unavailable [phone] Ruthie Toussaint MD Primary Care Provider [phone] Avelino Linares MD Unavailable [phone] Encounter Details Date Type Department Care Team (Latest Contact Info) Description 10/12/2016 Orders Only [facility] CLINCONV ProviderFei MD [address] [place] [address] Social History Tobacco Use Types Packs/Day Years Used Date Smoking Tobacco: Former Sex and Gender Information Value Date Recorded Sex Assigned at Not on file Legal Sex Male 4:45 AM EFFICIENCY MINER BLASTING Gender Identity Not on file Sexual Orientation Not on file documented as of this encounter Plan of Treatment Not on file documented as of this encounter Procedures Procedure Name Priority Date/Time Associated Diagnosis Comments SCAN - LABS 10/29/2016 12:00 AM EFFICIENCY MINER BLASTING documented in this encounter Results * SCAN - LABS (10/29/2016 12:00 AM EFFICIENCY MINER BLASTING) Narrative 10/29/2016 12:00 AM EFFICIENCY MINER BLASTING Ordered by an unspecified provider. us Historical Provider Final Res ult documented in this encounter Visit Diagnoses Not on filedocumented in this encounter Care Teams Chimney Builder Relationship Specialty Start Date End Date Gustavo Carter DO [address] [facility] [address] [place] [address] PCP - General 02/14/18 06/20/18 Gustavo Carter DO [address] [facility] [address] [place] [address] PCP - General Internal Medicine 06/21/18 01/11/24 Ruthie Toussaint MD [address] [place] [address] PCP - General Family Medicine 06/09/24 Sonja Barrett LPN [address] [place] [address] [address] [place] [address] Masseur/Masseuse 01/25/18 01/25/18 Jarred Turner MD [address] [place] [address] Consulting Physician Urology 03/20/19 Jasper Baptiste DO [address] [place] [address] Medical Oncologist/Hematologi Hematology and Oncology 11/12/20 Aicha Johnson MD [address] [place] [address] Consulting Physician Otolaryngology 07/29/21 Avelino Linares MD [address] [facility] [address] [place] [address] Consulting Physician Urology 10/27/24 documented as of this encounter
--- OUTSIDE RECORDS SUMMARY | 2024-11-02 01:08 | XMS_ITS | Encounter Summary ---
Author Organization [facility] Facility Care Team Providers Care Supplier Specialist Name Role Phone Kevin Barrettkatherin Sparks LPN Unavailable [phone] Gustavo Carter DO Primary Care Pr ovider Gustavo Carter DO Primary Care Pr ovider Jarred Turner MD Unavailable [phone] Jasper Baptiste DO Unavailable [phone] Aicha Johnson MD Unavailable [phone] Ruthie Toussaint MD Primary Care Provider [phone] Avelino Linares MD Unavailable [phone] Encounter Details Date Type Department Care Team (Latest Contact Info) Description 11/10/2016 Orders Only [facility] CLINCONV ProviderFei MD [address] [place] [address] Social History Tobacco Use Types Packs/Day Years Used Date Smoking Tobacco: Former Sex and Gender Information Value Date Recorded Sex Assigned at Not on file Legal Sex Male 4:45 AM DOOR MACHINE OPERATOR Gender Identity Not on file Sexual Orientation Not on file documented as of this encounter Plan of Treatment Not on file documented as of this encounter Procedures Procedure Name Priority Date/Time Associated Diagnosis Comments CARDIOLOGY REPORT 11/19/2016 12: 00 AM DOOR MACHINE OPERATOR documented in this encounter Results * CARDIOLOGY REPORT (11/19/2016 12:00 AM DOOR MACHINE OPERATOR) Anatomical Region Laterality Modality Other Narrative 11/19/2016 12:00 AM DOOR MACHINE OPERATOR Ordered by an unspecified provider. us Historical Provider [facility]ISAL [facility]IRK Final Result documented in this encounter Visit Diagnoses Not on filedocumented in this encounter Care Teams Supplier Specialist Relationship Specialty Start Date End Date Gustavo Carter DO [address] [facility] [address] [place] [address] PCP - General 02/14/18 06/20/18 Gustavo Carter DO [address] [facility] [address] [place] [address] PCP - General Internal Medicine 06/21/18 01/11/24 Ruthie Toussaint MD [address] [place] [address] PCP - General Family Medicine 06/09/24 Sonja Barrett LPN [address] [place] [address] [address] [place] [address] Manager Employment 01/25/18 01/25/18 Jarred Turner MD [address] [address] Consulting Physician Urology 03/20/19 Jasper Baptiste DO [address] [place] [address] Medical Oncologist/Hematologi Hematology and Oncology 11/12/20 Aicha Johnson MD [address] [place] [address] Consulting Physician Otolaryngology 07/29/21 Avelino Linares MD [address] [facility] [address] [place] [address] Consulting Physician Urology 10/27/24 documented as of this encounter
--- OUTSIDE RECORDS SUMMARY | 2024-11-02 01:08 | XMS_ITS | Referral Summary ---
Author Organization [facility] 8 [facility] Address 8 [facility] [address] [place] [address] Phone Care Team Providers Care Drawer In Hand Name Role Phone Jarred Turner MD Unavailable [phone] Jasper Baptiste DO Unavailable [phone] Aicha Johnson MD Unavailable [phone] Ruthie Toussaint MD Primary Care Provider [phone] Avelino Linares MD Unavailable [phone] Encounters Date Type Department Care Team Description 10/29/2024 Orders Only [facility] Pul[facility] [address] [facility] 8th [place] [address] [place] [phone] Ramon Schulte MD HHT (hereditary hemorrhagic telangiectasia) (HCC) (Primary Dx); Chronic cough 10/27/2024 12:30 PM CHRONOMETER REPAIRER Lab [facility] at [address] [address] HHT (hereditary hemorrhagic telangiectasia) (CMS/HCC) (HCC); Iron deficiency anemia due to chronic blood loss; Hereditary hemorrhagic telangiectasia (HCC); Abnormal findings on diagnostic imaging of other specified body structures 10/27/2024 1:30 PM CHRONOMETER REPAIRER Office Visit [facility] [address] [place] [address] [place] [phone] Jasper Baptiste, HHT (hereditary hemorrhagic telangiectasia) (CMS/HCC) (HCC); Iron deficiency anemia due to chronic blood loss; Simple chronic bronchitis (HCC); Atrial fibrillation, persistent (HCC) 10/23/2024 Orders Only [facility] [address] [place] [address] [address] [place] [address] Lillian Red RN Hereditary hemorrhagic telangiectasia (HCC) (Primary Dx); Abnormal findings on diagnostic imaging of other specified body structures 10/19/2024 Orders Only [facility] [address] [place] [address] [address] [place] [address] Jasper Baptiste DO 10/19/2024 Telephone [facility] [address] [place] [address] [address] [place] [address] Majo Collins CMA 09/25/2024 Telephone [facility] [address] [place] [address] [address] [place] [address] Judy Castillo RN 09/20/2024 Orders Only [facility] [address] [place] [address] [address] [place] [address] Fei Lowe MD 09/20/2024 1:12 PM CHRONOMETER REPAIRER - 09/20/2024 11:59 PM CHRONOMETER REPAIRER Hospital Encounter [facility] [address] [place] [address] HHT (hereditary hemorrhagic telangiectasia) (CMS/HCC) (HCC); Iron deficiency anemia due to chronic blood loss; Pulmonary nodules; Thoracic aortic aneurysm without rupture, unspecified part (HCC); Liver lesion, left lobe; Liver lesion, right lobe Discharge Disposition: Discharge to home or self care 09/19/2024 Orders Only [facility] [address] [place] [address] [address] [place] [address] Fei Lowe MD 09/13/2024 Telephone [facility]iology [address] [facility] [address] [place] [address] Pteerson Dawson MD 09/13/2024 10:30 AM CHRONOMETER REPAIRER Office Visit [facility] [address] [facility] [address] [place] [address] Yvonne Grigsby NP CAD in big sandy artery (Primary Dx); Atrial fibrillation, persistent (HCC); Presence of Watchman left atrial appendage closure device; Hyperlipidemia, unspecified hyperlipidemia type; Tobacco abuse 08/25/2024 Orders Only [facility] [address] [facility] 8th [place] [address] [place] [phone] Zenobia Le RN HHT (hereditary hemorrhagic telangiectasia) (HCC) (Primary Dx); 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) 08/25/2024 9:15 AM CHRONOMETER REPAIRER Lab [facility] at [facility] [address] [place] [address] Iron deficiency anemia due to chronic blood loss 08/25/2024 10:15 AM CHRONOMETER REPAIRER Office Visit [facility] Oncology [address] [facility] [address] [place] [phone] Jasper Baptiste, HHT (hereditary hemorrhagic telangiectasia) (CMS/HCC) (HCC) (Primary Dx); Iron deficiency anemia due to chronic blood loss; Pulmonary nodules; Thoracic aortic aneurysm without rupture, unspecified part (HCC); Liver lesion, left lobe; Liver lesion, right lobe 08/15/2024 10:30 AM CHRONOMETER REPAIRER Office Visit [facility] Pulmonology [address] [facility] [address] [place] [phone] Hi Reynolds MD Multiple pulmonary nodules (Primary Dx); Chronic cough; Cigarette nicotine dependence in remission; HHT (hereditary hemorrhagic telangiectasia) (CMS/HCC) (HCC); Anxiety; Non-seasonal allergic rhinitis due to pollen; Centrilobular emphysema (HCC); Simple chronic bronchitis (HCC); Atrial fibrillation, unspecified type (HCC); Pulmonary air trapping from Last 3 Months Allergies Active Allergy [...] A DAY 180 tablet 2 024 Active Free All MediaTouch Ultra Test strip USE TO CHECK BLOOD SUGAR BEFORE MEALS OR AT BEDTIME Active Free All MediaTouch Delica Plus Lancet 33 gauge misc USE [...] 024 Active gabapentin (NEURONTIN) 300 mg capsuleIndication s:Aolfb-Vfmvu-Jli du disease (HCC) TAKE 2 CAPSULES BY MOUTH EVERY DAY AT NIGHT 180 capsule 1 024 Active atorvastatin (LIPITOR) 20 mg tablet TAKE 1 TABLET BY MOUTH EVERY DAY 90 tablet 1 024 Active dh-uke-jvegd-K1-l ycopen-lutein [id number] mcg tablet Take 1 tablet/capsule by mouth daily Active isosorbide mononitrate ER (IMDUR) 60 mg 24 hr tabletIndications :Coronary artery disease involving big sandy coronary artery of big sandy heart with angina pectoris (HCC),Dyspnea, unspecified type Take 1 tablet (60 mg total) by mouth daily 90 tablet 1 024 Active ferrous sulfate 325 mg (65 mg [...] hours as needed for pain 60 tablet 01/24/2 025 Active naloxone (NARCAN) 4 mg/actuation spray,non-aerosol [...] management of unspecified implanted device 07/19/2024 A-fib ([facility]) 2024 Atrial fibrillation ([facility]) 02/18/2024 Simple chronic bronchitis 09/06/2023 Pulmonary air trapping 04/27/2023 Iron deficiency anemia due to chronic blood loss 03/18/2023 Epistaxis 06/12/2021 Cigarette nicotine dependence in remission 06/18 Personal history of thromboembolic disease 06/01 Anxiety 06/01/2019 Non-seasonal allergic rhinitis due to pollen Multiple pulmonary nodules 06/01/2019 Chronic cough 06/01/2019 Shortness of breath 06/01/2019 Centrilobular emphysema 06/01/2019 HHT (hereditary hemorrhagic telangiectasia) ([facility] /HCC) 12/15/2016 CAD (coronary artery disease) 11/03/2016 Thoracic [...] on file Legal Sex Male 4:45 AM CHRONOMETER REPAIRER Gender Identity Not on file Sexual Orientation Not on file Last Filed Vital Signs Vital Sign Reading Time Taken Comments Blood Pressure 120/86 10/27/2024 1:20 PM CHRONOMETER REPAIRER Pulse 64 10/27/2024 1:20 PM CHRONOMETER REPAIRER Temperature 36.9 ??C (98.4 ??F) 10/27/2024 1:20 PM CS T Respiratory Rate 18 10/27/2024 1:20 PM CHRONOMETER REPAIRER Oxygen Saturation 96% 10/27/2024 1:20 PM CHRONOMETER REPAIRER Inhaled Oxygen Concentration - - Weight 67.9 kg (149 lb 12.8 oz) 10/27/2024 1:20 PM CHRONOMETER REPAIRER Height 184.2 cm (6' 0.5 ) 10/27/2024 1:20 PM CHRONOMETER REPAIRER w shoes Body Mass Index 20.04 10/27/2024 1:20 PM CHRONOMETER REPAIRER Plan of Treatment Not on file Medical Devices Implanted Type Area Critical Care Specialist Device Identifier Shelf Expiration Date Model / Serial / Lot [employer] Gabriela Device Closure 24mm Lt Watchman Flx Pro Cardiac Strl La [id number] - S0 - [id number] Implanted:Qty: 1 on 2024 by Victoriano Loyola MD at [facility] Left Atrial Appendage Occluder N/A: Atrial Appendage [employer] Gabriela 12/02/2026 [id number] / 0 / [id number] [employer] System Closure Repair Femoral Artery Suture Mediated Perclose Prostyle 60130-19 - S0 - [id number] Implanted:Qty: 1 on 2024 by Victoriano Loyola MD at [facility] Vascular Closure Device N/A: Femoral [employer] 12/01/2025 [id number] / 0 / [id number] [employer] System Closure Repair Femoral Artery Suture Mediated Perclose Prostyle 95512-26 - S0 - [id number] Implanted:Qty: 1 on 2024 by Victoriano Loyola MD at [facility] Vascular Closure Device N/A: Femoral [employer] 12/01/2025 [id number] / 0 / [id number] [employer] [id number] Coil Embolization [employer] [place] L14cm Od3mm .018 In Catheter - [id number] Implanted:Qty: 1 on 11/17/2021 at [facility] [employer] 11/09/2022 [id number] / / [id number] [employer] [id number] Coil Embolization [employer] [place] L14cm Od3mm .018 In Catheter - [id number] Implanted:Qty: 1 on 11/17/2021 at [facility] [employer] 03/19/2022 [id number] / / [id number] [employer] [id number] Coil Embolization [employer] [place] L14cm Od3mm .018 In Catheter - [id number] Implanted:Qty: 1 on 11/17/2021 at [facility] [employer] 03/19/2022 [id number] / / [id number] [employer] [id number] Coil Embolization [employer] [place] L14cm Od3mm .018 In Catheter - [id number] Implanted:Qty: 1 on 11/17/2021 at [facility] [employer] 03/02/2023 [id number] / / [id number] Procedures Procedure Name Priority Date/Time Associated Diagnosis Comments EGFR Routine 10/27/2024 12:41 PM CHRONOMETER REPAIRER Hereditary hemorrhagic telangiectasia (HCC) DIFFERENTIAL AUTO Routine 10/27/2024 12:41 PM CHRONOMETER REPAIRER HHT (hereditary hemorrhagic telangiectasia) (HCC) Iron deficiency anemia due to chronic blood loss COMPREHENSIVE METABOLIC PANEL Routine 10/27/2024 12:41 PM CHRONOMETER REPAIRER Hereditary hemorrhagic telangiectasia (HCC) TSH Routine 10/27/2024 12:41 PM CHRONOMETER REPAIRER Hereditary hemorrhagic telangiectasia (HCC) Abnormal findings on diagnostic imaging of other specified body structures CBC WITH AUTO DIFFERENTIAL Routine 10/27/2024 12:41 PM CHRONOMETER REPAIRER HHT (hereditary hemorrhagic telangiectasia) (CMS/HCC) (HCC) Iron deficiency anemia due to chronic blood loss FERRITIN Routine 10/27/2024 12:41 PM CHRONOMETER REPAIRER HHT (hereditary hemorrhagic telangiectasia) (CMS/HCC) (HCC) Iron deficiency anemia due to chronic blood loss RETICULOCYTES Routine 10/27/2024 12:41 PM CHRONOMETER REPAIRER HHT (hereditary hemorrhagic telangiectasia) (CMS/HCC) (HCC) Iron deficiency anemia due to chronic blood loss CBC WITH AUTO DIFFERENTIAL Routine 10/19/2024 3:[address] CHEST ABDOMEN W CONTRAST Schedule Routine, Read Routine (OP Routine) 09/20/2024 1:25 PM CHRONOMETER REPAIRER HHT (hereditary hemorrhagic telangiectasia) (CMS/HCC) (HCC) Iron deficiency anemia due to chronic blood loss Pulmonary nodules Thoracic aortic aneurysm without rupture, unspecified part (HCC) Liver lesion, left lobe Liver lesion, right lobe CBC WITH AUTO DIFFERENTIAL Routine 09/19/2024 1:49 PM CHRONOMETER REPAIRER RETICULOCYTE COUNT Routine 09/19/2024 10:21 AM CHRONOMETER REPAIRER FERRITIN Routine 09/19/2024 8:17 AM CHRONOMETER REPAIRER EGFR Routine 08/25/2024 9:15 AM CHRONOMETER REPAIRER Iron deficiency anemia due to chronic blood loss DIFFERENTIAL AUTO Routine 08/25/2024 9:1 5 AM CHRONOMETER REPAIRER Iron deficiency anemia due to chronic blood loss CBC WITH AUTO DIFFERENTIAL Routine 08/25/2024 9:15 AM CHRONOMETER REPAIRER Iron deficiency anemia due to chronic blood loss COMPREHENSIVE METABOLIC PANEL Routine 08/25/2024 9:15 AM CHRONOMETER REPAIRER Iron deficiency anemia due to chronic blood loss FERRITIN Routine 08/25/2024 9:15 AM CHRONOMETER REPAIRER Iron deficiency anemia due to chronic blood loss IRON PROFILE W/ IBC Routine 08/25/2024 9 :15 AM CHRONOMETER REPAIRER Iron deficiency anemia due to chronic blood loss from Last 3 Months Results * eGFR (10/27/2024 12:41 PM CHRONOMETER REPAIRER) eGFR 85 >=60 mL/min/1. 73 m2 Comment: [...] was last reviewed 2021. Testing performed by: [address] [address] Blood 10/27/2024 12:4 1 PM CHRONOMETER REPAIRER 10/27/2024 12:44 PM CHRONOMETER REPAIRER Jasper Baptiste DO LAB BLOOD ORDERABLES Final R esult ABHIJEET [address] [facility] Department [place] [address] * Differential, auto (10/27/2024 12:41 PM CHRONOMETER REPAIRER) Neutrophil abs 3.6 1.5 - 6.5 K/cumm Comment:Testing performed by : [address] [address] Imm gran abs 0.0 0.0 - 0.1 K/cumm ABHIJEET Comment:Testing performed by : [address] [address] Lymphocyte abs 1.8 0.8 - 3.3 K/cumm ABHIJEET Comment:Testing performed by : [address] [address] Monocyte abs 0.6 0.2 - 0.8 K/cumm ABHIJEET Comment:Testing performed by : [address] [address] Eosinophil abs 0.2 0.0 - 0.5 K/cumm ABHIJEET Comment:Testing performed by : [address] [address] Basophil abs 0.1 0.0 - 0.1 K/cumm ABHIJEET Comment:Testing performed by : [address] [address] Neutrophil pct 57.6 % [facility] Comment: Interpretive Data Percent cell count reference ranges are not reported, since discordance with absolute values may lead to misinterpretation of CBC data. Current Interpretive Data was last revised on 2018. Testing performed by: [address] [address] Imm gran pct 0.2 % ABHIJEET Comment: Interpretive Data Percent cell count reference ranges are not reported, since discordance with absolute values may lead to misinterpretation of CBC data. Current Interpretive Data was last revised on 2018. Testing performed by: [address] [address] Lymphocyte pct 28.2 % [facility] Comment: Interpretive Data Percent cell count reference ranges are not reported, since discordance with absolute values may lead to misinterpretation of CBC data. Current Interpretive Data was last revised on 2018. Testing performed by: [address] [address] Monocyte pct 9.4 % [facility] Comment: Interpretive Data Percent cell count reference ranges are not reported, since discordance with absolute values may lead to misinterpretation of CBC data. Current Interpretive Data was last revised on 2018. Testing performed by: [address] [address] Eosinophil pct 3.5 % [facility] Comment: Interpretive Data Percent cell count reference ranges are not reported, since discordance with absolute values may lead to misinterpretation of CBC data. Current Interpretive Data was last revised on 2018. Testing performed by: [address] [address] Basophil pct 1.1 % [facility] Comment: Interpretive Data Percent cell count reference ranges are not reported, since discordance with absolute values may lead to misinterpretation of CBC data. Current Interpretive Data was last revised on 2018. Testing performed by: [address] [address] Blood 10/27/2024 12:4 1 PM CHRONOMETER REPAIRER 10/27/2024 12:44 PM CHRONOMETER REPAIRER Jasper Baptiste DO LAB BLOOD ORDERABLES Final R esult ABHIJEET [address] [facility] Department [place] [address] * (ABNORMAL) CBC with auto differential (10/27/2024 12:41 PM CHRONOMETER REPAIRER) WBC 6.3 3.8 - 9.9 K/cumm Comment:Testing performed by : [address] [address] Hgb 11.9(L) 13.0 - 17.5 g/dL ABHIJEET Comment:Testing performed by : [address] [address] Hct 36.1(L) 38.9 - 50.3 % ABHIJEET Comment:Testing performed by : [address] [address] Plt 254 150 - 400 K/cumm ABHIJEET Comment:Testing performed by : [address] [address] MPV 9.8 9.1 - 12.3 fL ABHIJEET Comment:Testing performed by : [address] [address] RBC 3.81(L) 4.30 - 5.80 M/cumm ABHIJEET Comment:Testing performed by : [address] [address] MCV 94.8 81.3 - 96.4 fL ABHIJEET Comment:Testing performed by : [address] [address] MCH 31.2 27.1 - 33.3 pg ABHIJEET HARRIS Comment:Testing performed by : [address] [address] MCHC 33.0 32.3 - 35.7 g/dL ABHIJEET HARRIS Comment:Testing performed by : [address] [address] RDW CV 15.2(H) 11.1 - 14.9 % ABHIJEET Comment:Testing performed by : [address] [address] RDW SD 52.9(H) 35.7 - 48.1 fL ABHIJEET Comment:Testing performed by : [address] [address] NRBC abs 0.00 0.00 - 0.01 K/cumm ABHIJEET Comment:Testing performed by : [address] [address] Blood 10/27/2024 12:4 1 PM CHRONOMETER REPAIRER 10/27/2024 12:44 PM CHRONOMETER REPAIRER Jasper Baptiste DO LAB BLOOD ORDERABLES Final R esult Performing Organization Address [facility] de Phone Number ABHIJEET [facility] [employer] [place], [place] [id number] * Reticulocyte Count (10/27/2024 12:41 PM CHRONOMETER REPAIRER) Retics, absolute 0.058 0.020 - 0.087 M/cumm Comment:Testing performed by : [address] [address] Retics 1.5 0.4 - 2.9 % ABHIJEET Comment:Testing performed by : [address] [address] Reticulocyte Hgb 34.2 30.5 - 38.0 pg ABHIJEET Comment:Testing performed by : [address] [address] Blood 10/27/2024 12:4 1 PM CHRONOMETER REPAIRER 10/27/2024 12:44 PM CHRONOMETER REPAIRER Jasper Baptiste DO LAB BLOOD ORDERABLES Final R esult Performing Organization Address [facility] de Phone Number ABHIJEET [address] [address] * TSH (10/27/2024 12:41 PM CHRONOMETER REPAIRER) Pathologist [facility] Thyroid Stimulating Hormone 1.78 0.30 - 4.20 mcIUnit/mL Comment:Testing performed by : [address] [address] Blood 10/27/2024 12:4 1 PM CHRONOMETER REPAIRER 10/27/2024 1:44 PM CHRONOMETER REPAIRER Jasper Baptiste DO LAB BLOOD ORDERABLES Final R esult Performing Organization Address City/[facility]/ZIP Co de Phone Number [address] [address] * Ferritin (10/27/2024 12:41 PM CHRONOMETER REPAIRER) [facility] Ferritin 69 30 - 400 ng/mL Comment:Testing performed by : [address] [address] Blood 10/27/2024 12:4 1 PM CHRONOMETER REPAIRER 10/27/2024 1:44 PM CHRONOMETER REPAIRER Jasper Baptiste DO LAB BLOOD ORDERABLES Final R esult Performing Organization Address City/[facility]/ZIP Co de Phone Number [address] [address] * Comprehensive metabolic panel (10/27/2024 12:41 PM CHRONOMETER REPAIRER) [facility] Sodium 140 135 - 145 mmol/L Comment:Testing performed by : [address] [address] Potassium, pl 4.7 3.3 - 4.9 mmol/L ABHIJEET HARRIS Comment:Testing performed by : [address] [address] Chloride 104 97 - 110 mmol/L ABHIJEET Comment:Testing performed by : [address] [address] CO2 27 22 - 32 mmol/L ABHIJEET HARRIS Comment:Testing performed by : [address] [address] Anion gap 9 2 - 15 mmol/L ABHIJEET Comment:Testing performed by : [address] [address] BUN 11 6 - 25 mg/dL ABHIJEET Comment:Testing performed by : [address], [place]., [address] Creatinine 1.00 0.80 - 1.30 mg/dL ABHIJEET Comment:Testing performed by : [address] [address] Glucose 122 70 - 199 mg/dL ABHIJEET [...] was last revised 2022. Testing performed by: [address] [address] Calcium 9.1 8.5 - 10.3 mg/dL ABHIJEET Comment:Testing performed by : [address] [address] Bilirubin, total 0.3 0.1 - 1.2 mg/dL ABHIJEET Comment:Testing performed by : [address] [address] Protein, pl 6.8 6.5 - 8.5 g/dL ABHIJEET Comment:Testing performed by : [address] [address] Albumin 3.9 3.5 - 5.0 g/dL ABHIJEET Comment:Testing performed by : [address] [address] Alk phos 88 40 - 130 Units/L ABHIJEET Comment:Testing performed by : [address] [place]., [address] ALT 11 7 - 55 Units/L ABHIJEET HARRIS Comment:Testing performed by : [address] [address] AST 23 10 - 50 Units/L ABHIJEET HARRIS Comment:Testing performed by : [address] [address] Blood 10/27/2024 12:4 1 PM CHRONOMETER REPAIRER 10/27/2024 12:44 PM CHRONOMETER REPAIRER Jasper Baptiste DO LAB BLOOD ORDERABLES Final R esult Performing Organization Address [facility] Co de Phone Number ABHIJEET [facility] Department [place] [address] * (ABNORMAL) CBC with auto differential (10/19/2024 3:20 PM CHRONOMETER REPAIRER) Blood Jasper Baptiste DO LAB BLOOD ORDERABLES Final R esult Performing Organization Address [facility] Co de Phone Number [facility] [address] [phone] * CT Chest Abdomen W Contrast (09/20/2024 1:25 PM CHRONOMETER REPAIRER) Anatomical Region Laterality Modality Body N/A Computed Tomogra phy 09/25/2024 1:12 PM CHRONOMETER REPAIRER Narrative 09/25/2024 2:00 PM CHRONOMETER REPAIRER EXAM DESCRIPTION: ?? CT CHEST ABDOMEN W [...] PM T: ??09/25/2024 2:00 PM Report ID: [id number] Reading Location: ??[id number] Procedure Note James Montes, DO - 09/25/2024 [...] James Montes D.O. PS: PS Report ID: [id number] Reading Location: [id number] Jasper Baptiste DO IMG CT PROCEDURES Final Resu lt * CBC with auto differential (09/19/2024 1:49 PM CHRONOMETER REPAIRER) Blood [facility] Provider MD LAB BLOOD ORDERABLES Leticia l Result * Reticulocyte Count (09/19/2024 10:21 AM CHRONOMETER REPAIRER) Result [facility] Provider MD LAB BLOOD ORDERABLES Leticia l Result * Ferritin (09/19/2024 8:17 AM CHRONOMETER REPAIRER) Blood [facility] Provider MD LAB BLOOD ORDERABLES Leticia l Result * eGFR (08/25/2024 9:15 AM CHRONOMETER REPAIRER) eGFR >90 >=60 mL/min/1. 73 m2 Comment: [...] was last reviewed 2021. Testing performed by: [address] [address] Blood 08/25/2024 9:15 AM CHRONOMETER REPAIRER 08/25/2024 9:17 AM CHRONOMETER REPAIRER us Jasper Baptiste DO LAB BLOOD ORDERABLES Final R esult ABHIJEET [address] [facility] Department [place] [address] * Differential, auto (08/25/2024 9:15 AM CHRONOMETER REPAIRER) Neutrophil abs 2.6 1.5 - 6.5 K/cumm Comment:Testing performed by : [address] [address] Imm gran abs 0.0 0.0 - 0.1 K/cumm ABHIJEET Comment:Testing performed by : [address] [address] Lymphocyte abs 1.5 0.8 - 3.3 K/cumm ABHIJEET Comment:Testing performed by : [address] [address] Monocyte abs 0.6 0.2 - 0.8 K/cumm ABHIJEET Comment:Testing performed by : [address] [address] Eosinophil abs 0.2 0.0 - 0.5 K/cumm [facility] Comment:Testing performed by : [address] [address] Basophil abs 0.0 0.0 - 0.1 K/cumm [facility] Comment:Testing performed by : [address] [address] Neutrophil pct 52.6 % [facility] Comment: Interpretive Data Percent cell count reference ranges are not reported, since discordance with absolute values may lead to misinterpretation of CBC data. Current Interpretive Data was last revised on 2018. Testing performed by: [address] [address] Imm gran pct 0.4 % [facility] Comment: Interpretive Data Percent cell count reference ranges are not reported, since discordance with absolute values may lead to misinterpretation of CBC data. Current Interpretive Data was last revised on 2018. Testing performed by: [address] [address] Lymphocyte pct 29.8 % [facility] Comment: Interpretive Data Percent cell count reference ranges are not reported, since discordance with absolute values may lead to misinterpretation of CBC data. Current Interpretive Data was last revised on 2018. Testing performed by: [address] [address] Monocyte pct 11.9 % [facility] Comment: Interpretive Data Percent cell count reference ranges are not reported, since discordance with absolute values may lead to misinterpretation of CBC data. Current Interpretive Data was last revised on 2018. Testing performed by: [address] [address] Eosinophil pct 4.7 % [facility] Comment: Interpretive Data Percent cell count reference ranges are not reported, since discordance with absolute values may lead to misinterpretation of CBC data. Current Interpretive Data was last revised on 2018. Testing performed by: [address] [address] Basophil pct 0.6 % [facility] Comment: Interpretive Data Percent cell count reference ranges are not reported, since discordance with absolute values may lead to misinterpretation of CBC data. Current Interpretive Data was last revised on 2018. Testing performed by: [address] [address] Blood 08/25/2024 9:15 AM CHRONOMETER REPAIRER 08/25/2024 9:17 AM CHRONOMETER REPAIRER Jasper Baptiste LAB BLOOD ORDERABLES Final R esult Performing Organization Address [facility] de Phone Number [facility] [address] [facility] Department [place] [address] * (ABNORMAL) Iron profile w/ IBC (08/25/2024 9:15 AM CHRONOMETER REPAIRER) Pathologist [facility] Iron 42(L) 50 - 150 mcg/dL Comment:Testing performed by : [address] [address] TIBC 249(L) 250 - 400 mcg/dL ABHIJEET Comment:Testing performed by : [address] [address] Transferrin saturation 17(L) 20 - 50 % ABHIJEET Comment:Testing performed by : [address] [address] Blood 08/25/2024 9:15 AM CHRONOMETER REPAIRER 08/25/2024 10:01 AM CHRONOMETER REPAIRER Jasper Baptiste LAB BLOOD ORDERABLES Final R esult Performing Organization Address [facility] de Phone Number [facility] [address] [facility] [place] [address] * (ABNORMAL) CBC with auto differential (08/25/2024 9:15 AM CHRONOMETER REPAIRER) Pathologist [facility] WBC 4.9 3.8 - 9.9 K/cumm Comment:Testing performed by : [address] [address] Hgb 11.0(L) 13.0 - 17.5 g/dL ABHIJEET Comment:Testing performed by : [address] [address] Hct 33.6(L) 38.9 - 50.3 % ABHIJEET Comment:Testing performed by : [address] [address] Plt 234 150 - 400 K/cumm ABHIJEET Comment:Testing performed by : [address] [address] MPV 9.4 9.1 - 12.3 fL ABHIJEET Comment:Testing performed by : [address] [address] RBC 3.58(L) 4.30 - 5.80 M/cumm ABHIJEET Comment:Testing performed by : [address] [address] MCV 93.9 81.3 - 96.4 fL ABHIJEET Comment:Testing performed by : [address] [address] MCH 30.7 27.1 - 33.3 pg ABHIJEET Comment:Testing performed by : [address] [address] MCHC 32.7 32.3 - 35.7 g/dL ABHIJEET Comment:Testing performed by : [address] [address] RDW CV 18.4(H) 11.1 - 14.9 % ABHIJEET Comment:Testing performed by : [address] [address] RDW SD 63.8(H) 35.7 - 48.1 fL ABHIJEET Comment:Testing performed by : [address] [address] NRBC abs 0.00 0.00 - 0.01 K/cumm ABHIJEET Comment:Testing performed by : [address] [address] Blood 08/25/2024 9:15 AM CHRONOMETER REPAIRER 08/25/2024 9:17 AM CHRONOMETER REPAIRER Jasper L. Oliva DO LAB BLOOD ORDERABLES Final R esult Performing Organization Address City/[facility]/ZIP Co de Phone Number ABHIJEET [facility] [place] [address] * Ferritin (08/25/2024 9:15 AM CHRONOMETER REPAIRER) Pathologist [facility] Ferritin 113 30 - 400 ng/mL Comment:Testing performed by : [address] [address] Blood 08/25/2024 9:15 AM CHRONOMETER REPAIRER 08/25/2024 10:01 AM CHRONOMETER REPAIRER Jasper Garza Oliva DO LAB BLOOD ORDERABLES Final R esult Performing Organization Address [facility] Co de Phone Number ABHIJEET [facility] [place] [address] * (ABNORMAL) Comprehensive metabolic panel (08/25/2024 9:15 AM CHRONOMETER REPAIRER) [facility] Sodium 141 135 - 145 mmol/L Comment:Testing performed by : [address] [address] Potassium, pl 4.0 3.3 - 4.9 mmol/L ABHIJEET Comment:Testing performed by : [address] [address] Chloride 105 97 - 110 mmol/L ABHIJEET Comment:Testing performed by : [address] [address] CO2 26 22 - 32 mmol/L ABHIJEET Comment:Testing performed by : [address] [address] Anion gap 10 2 - 15 mmol/L ABHIJEET Comment:Testing performed by : [address] [address] BUN 5(L) 6 - 25 mg/dL ABHIJEET Comment:Testing performed by : [address] [address] Creatinine 0.90 0.80 - 1.30 mg/dL ABHIJEET Comment:Testing performed by : [address] [address] Glucose 99 70 - 199 mg/dL ABHIJEET [...] was last revised 2022. Testing performed by: [address] [address] Calcium 8.7 8.5 - 10.3 mg/dL ABHIJEET Comment:Testing performed by : [address] [address] Bilirubin, total 0.2 0.1 - 1.2 mg/dL ABHIJEET Comment:Testing performed by : [address] [address] Protein, pl 6.4(L) 6.5 - 8.5 g/dL ABHIJEET Comment:Testing performed by : [address] [address] Albumin 3.7 3.5 - 5.0 g/dL ABHIJEET Comment:Testing performed by : [address] [address] Alk phos 76 40 - 130 Units/L ABHIJEET Comment:Testing performed by : [address] [address] ALT 11 7 - 55 Units/L [facility] Comment:Testing performed by : [address] [address] AST 21 10 - 50 Units/L ABHIJEET Comment:Testing performed by : [address] [address] Blood 08/25/2024 9:15 AM CHRONOMETER REPAIRER 08/25/2024 9:17 AM CHRONOMETER REPAIRER us Jasper Baptiste DO LAB BLOOD ORDERABLES Final R esult [facility] [address] [facility] Department [place] [address] from Last 3 Months Insurance MEDICARE IDPA [facility] MEDICARE MEDICARE Advance Directives For more information, please contact: [phone] Documents on File Type Date Recorded Patient International Editorial Producer Expl anation ADVANCE DIRECTIVE 01/16/2013 12:00 AM [employer] * Full Code (Latest Code Status on File) Date Activated Date Inactivated Comments 2024 11:37 AM 03/29/2024 4:34 PM * Full Code Date Activated Date Inactivated Comments 11/17/2021 2:31 PM 11/17/2021 8:17 PM * Full Code Date Activated Date Inactivated Comments 07/29/2021 8:06 PM 07/30/2021 1:05 AM Care Teams Drawer In Hand Relationship Specialty Start Date End Date Ruthie Toussaint MD [address] [place] [address] PCP - General Family Medicine 06/09/24 Jarred Turner MD [address] [place] [address] Consulting Physician Urology 03/20/19 Jasper Baptiste DO [facility] [address] Medical Oncologist/Hematologis t Hematology and Oncology 11/12/20 Aicha Johnson MD [address] [facility] [address] [place] [address] Consulting Physician Otolaryngology 07/29/21 Avelino Linares MD [address] [place] [address] Consulting Physician Urology 10/27/24
--- OUTSIDE RECORDS SUMMARY | 2024-11-02 01:08 | XMS_ITS | Encounter Summary ---
Author Organization [facility] Facility Care Team Providers Care News Intern Name Role Phone Kevin Barrettkatherin Sparks LPN Unavailable [phone] Gustavo Carter DO Primary Care Pr ovider Gustavo aCrter DO Primary Care Pr ovider Jarred Turner MD Unavailable [phone] Jasper Baptiste DO Unavailable [phone] Aicha Johnson MD Unavailable [phone] Ruthie Toussaint MD Primary Care Provider [phone] Avelino Linares MD Unavailable [phone] Encounter Details Date Type Department Care Team (Latest Contact Info) Description 11/12/2016 Orders Only [facility] CLINCONV ProviderFei MD [address] [place] [address] Social History Tobacco Use Types Packs/Day Years Used Date Smoking Tobacco: Former Sex and Gender Information Value Date Recorded Sex Assigned at Not on file Legal Sex Male 4:45 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 PLANT 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 Gender Identity Not on file Sexual Orientation Not on file documented as of this encounter Plan of Treatment Not on file documented as of this encounter Procedures Procedure Name Priority Date/Time Associated Diagnosis Comments CARDIOLOGY REPORT 11/19/2016 12: 00 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 PLANT CORK INSULATOR CARDIOLOGY REPORT 11/19/2016 12: 00 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 PLANT CORK INSULATOR documented in this encounter Results * CARDIOLOGY REPORT (11/19/2016 12:00 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 PLANT CORK INSULATOR) Anatomical Region Laterality Modality Other Narrative 11/19/2016 12:00 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 PLANT CORK INSULATOR Ordered by an unspecified provider. us Historical Provider CV CARDIAC SERVICES PROCE DURES Final Result * CARDIOLOGY REPORT (11/19/2016 12:00 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 PLANT CORK INSULATOR) Anatomical Region Laterality Modality Other Narrative 11/19/2016 12:00 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 PLANT CORK INSULATOR Ordered by an unspecified provider. Historical Provider CV CARDIAC SERVICES PROCE DURES Final Result documented in this encounter Visit Diagnoses Not on filedocumented in this encounter Care Teams News Intern Relationship Specialty Start Date End Date Gustavo Carter DO [address] [facility] [address] [place] [address] PCP - General 02/14/18 06/20/18 Gustavo Carter DO [address] [facility] [address] [place] [address] PCP - General Internal Medicine 06/21/18 01/11/24 Ruthie Toussaint MD [address] [place] [address] PCP - General Family Medicine 06/09/24 Sonja Barrett LPN [address] [facility] [address] [place] [address] Business Strategist 01/25/18 01/25/18 Jarred Turner MD [address] [place] [id number] Consulting Physician Urology 03/20/19 Jasper Baptiste DO [employer] [address] Medical Oncologist/Hematologi Hematology and Oncology 11/12/20 Aicha Johnson MD [address] [place] [address] Consulting Physician Otolaryngology 07/29/21 Avelino Linares MD [address] [place] [address] 200 [place] [address] Consulting Physician Urology 10/27/24 documented as of this encounter
--- OUTSIDE RECORDS SUMMARY | 2024-11-02 01:08 | XMS_ITS | Encounter Summary ---
Author Organization [facility] Address [address] [place] [address] Phone Care Team Providers Care Mems Engineer Name Role Phone AdyconchitaGustavo DO Primary Care Pr ovider Jarred Turner MD Unavailable [phone] Jasper Baptiste DO Unavailable [phone] Aicha Johnson MD Unavailable Ruthie Toussaint MD Primary Care Provider [phone] Avelino Linares MD Unavailable [phone] Encounter Details Date Type Department Care Team [...] on file Legal Sex Male 4:45 AM DOPEMAN Gender Identity Not on file Sexual Orientation [...] on filedocumented in this encounter Care Teams Mems Engineer Relationship Specialty Start Date End Date Gustavo Carter DO [address] [facility] [address] [place] [address] PCP - General Internal Medicine 06/21/18 01/11/24 Ruthie Toussaint MD [address] [place] [address] PCP - General Family Medicine 06/09/24 Jarred Turner MD [address] [place] [address] Consulting Physician Urology 03/20/19 Jasper Baptiste DO [address] [place] [address] [address] [place] [address] Medical Oncologist/Hematologi Hematology and Oncology 11/12/20 Aicha Johnson MD [address] [place] [address] Consulting Physician Otolaryngology 07/29/21 Avelino Linares MD [address] [facility] 200 [place] [address] Consulting Physician Urology 10/27/24 documented as of this encounter
--- OUTSIDE RECORDS SUMMARY | 2024-11-02 01:08 | XMS_ITS | Encounter Summary ---
Author Organization [facility] Facility Care Team Providers Care Bender Machine Operator Name Role Phone MilviacortneyGustavo DO Primary Care Pr ovider Jarred Turner MD Unavailable [phone] Jasper Baptiste DO Unavailable [phone] Aicha Johnson MD Unavailable [phone] Ruthie Toussaint MD Primary Care Provider [phone] Avelino Linares MD Unavailable [phone] Encounter Details Date Type Department Care Team (Latest Contact Info) Description 08/11/2018 Orders Only [facility] CLINCONV Provider, MD Fei [facility] [place] [address] Social History Tobacco Use Types Packs/Day Years Used Date Smoking Tobacco: Former Smokeless Tobacco: Never Sex and Gender Information Value Date Recorded Sex Assigned at Not on file Legal Sex Male 4: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 us Historical Provider Final Res ult documented in this encounter Visit Diagnoses Not on filedocumented in this encounter Care Teams Bender Machine Operator Relationship Specialty Start Date End Date Gustavo Carter DO [address] [facility] [address] [place] [address] PCP - General Internal Medicine 06/21/18 01/11/24 Ruthie Toussaint MD [address] [place] [address] PCP - General Family Medicine 06/09/24 Jarred Turner MD [address] [place] [address] Consulting Physician Urology 03/20/19 Jasper Baptiste DO [address] [place] [address] [address] [place] [address] Medical Oncologist/Hematologi Hematology and Oncology 11/12/20 Aicha Johnson MD [address] [place] [address] Consulting Physician Otolaryngology 07/29/21 Avelino Linares MD [address] [facility] 200 [place], [place] [id number] Consulting Physician Urology 10/27/24 documented as of this encounter
--- OUTSIDE RECORDS SUMMARY | 2024-11-02 01:08 | XMS_ITS | Encounter Summary ---
Author Organization [facility] Facility Care Team Providers Care Telephone Order Clerk Name Role Phone Kevin Barrettkatherin Sparks LPN Unavailable [phone] Gustavo Carter DO Primary Care Pr ovider Gustavo Carter DO Primary Care Pr ovider Jarred Turner MD Unavailable [phone] Jasper Baptiste DO Unavailable [phone] Aicha Johnson MD Unavailable [phone] Ruthie Toussaint MD Primary Care Provider [phone] Avelino Linares MD Unavailable [phone] Encounter Details Date Type Department Care Team (Latest Contact Info) Description 01/21/2018 Orders Only [facility] CLINCONV ProviderFei MD [address] [place] [address] Social History Tobacco Use Types Packs/Day Years Used Date Smoking Tobacco: Former Sex and Gender Information Value Date Recorded Sex Assigned at Not on file Legal Sex Male 4:45 AM CLIENT SUPPORT CONSULTANT Gender Identity Not on file Sexual Orientation [...] on filedocumented in this encounter Care Teams Telephone Order Clerk Relationship Specialty Start Date End Date Gustavo Carter DO [address] [facility] [address] [place] [address] PCP - General 02/14/18 06/20/18 Gustavo Carter DO [address] [facility] [address] [place] [address] PCP - General Internal Medicine 06/21/18 01/11/24 Ruthie Toussaint MD [address] [place] [address] PCP - General Family Medicine 06/09/24 Sonja Barrett LPN [address] [facility] [address] [place] [address] Gravel Weigher 01/25/18 01/25/18 Jarred Turner MD [address] [place] [id number] Consulting Physician Urology 03/20/19 Jasper Baptiste DO [facility] [address] Medical Oncologist/Hematologi Hematology and Oncology 11/12/20 Aicha Johnson MD [address] [place] [address] Consulting Physician Otolaryngology 07/29/21 Avelino Linares MD [address] [facility] [address] [place] [address] 200 [place] [address] Consulting Physician Urology 10/27/24 documented as of this encounter
--- OUTSIDE RECORDS SUMMARY | 2024-11-02 01:08 | XMS_ITS | Encounter Summary ---
Author Organization [facility] Facility Care Team Providers Care Catalyst Concentration Operator Name Role Phone Kevin Barrettkatherin Sparks LPN Unavailable [phone] Gustavo Carter DO Primary Care Pr ovider Gustavo Carter DO Primary Care Pr ovider Jarred Turner MD Unavailable [phone] Jasper Baptiste DO Unavailable [phone] Aicha Johnson MD Unavailable [phone] Ruthie Toussaint MD Primary Care Provider [phone] Avelino Linares MD Unavailable [phone] Encounter Details Date Type Department Care Team (Latest Contact Info) Description 01/22/2018 Orders Only [facility] CLINCONV ProviderFei MD [address] [place] [address] Social History Tobacco Use Types Packs/Day Years Used Date Smoking Tobacco: Former Sex and Gender Information Value Date Recorded Sex Assigned at Not on file Legal 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 Male 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 Gender Identity Not on file Sexual Orientation [...] on filedocumented in this encounter Care Teams Catalyst Concentration Operator Relationship Specialty Start Date End Date Gustavo Carter DO [address] [facility] [address] [place] [address] PCP - General 02/14/18 06/20/18 Gustavo Carter DO [address] [facility] [address] [place] [address] PCP - General Internal Medicine 06/21/18 01/11/24 Ruthie Toussaint MD [address] [place] [address] PCP - General Family Medicine 06/09/24 Sonja Barrett LPN [address] [facility] [address] [place] [address] College Hire 01/25/18 01/25/18 Jarred Turner MD [address] [id number] Consulting Physician Urology 03/20/19 Jasper Baptiste DO [address] [place] [address] Medical Oncologist/Hematologi Hematology and Oncology 11/12/20 Aicha Johnson MD [address] [place] [address] Consulting Physician Otolaryngology 07/29/21 Avelino Linares MD [address] [facility] [address] [place] [address] Consulting Physician Urology 10/27/24 documented as of this encounter
--- OUTSIDE RECORDS SUMMARY | 2024-11-02 01:08 | XMS_ITS | Encounter Summary ---
Author Organization [facility] Facility Care Team Providers Care Home Administrator Name Role Phone Kevin Barrettkatherin Sparks LPN Unavailable [phone] Gustavo Carter DO Primary Care Pr ovider Gustavo Carter DO Primary Care Pr ovider Jarred Turner MD Unavailable [phone] Jasper Baptiste DO Unavailable [phone] Aicha Johnson MD Unavailable [phone] Ruthie Toussaint MD Primary Care Provider [phone] Avelino Linares MD Unavailable [phone] Encounter Details Date Type Department Care Team (Latest Contact Info) Description 01/23/2018 Orders Only [facility]G CLINCONV ProviderFei MD [address] [place] [address] Social History Tobacco Use Types Packs/Day Years Used Date Smoking Tobacco: Former Sex and Gender Information Value Date Recorded Sex Assigned at Not on file Legal 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 Gender Identity Not on file Sexual Orientation [...] on filedocumented in this encounter Care Teams Home Administrator Relationship Specialty Start Date End Date Gustavo Carter DO [address] [facility] [address] [place] [address] PCP - General 02/14/18 06/20/18 Gustavo Carter DO [address] [facility] [address] [place] [address] PCP - General Internal Medicine 06/21/18 01/11/24 Ruthie Toussaint MD [address] [place] [address] PCP - General Family Medicine 06/09/24 Sonja Barrett LPN 660 [facility] 300 [place] [address] Jowl Trimmer 01/25/18 01/25/18 Jarred Turner MD [address] [id number] Consulting Physician Urology 03/20/19 Jasper Baptiste DO [address] [place] [address] Medical Oncologist/Hematologi Hematology and Oncology 11/12/20 Aicha Johnson MD [address] [place] [address] Consulting Physician Otolaryngology 07/29/21 Avelino Linares MD [address] [facility] 200 [place] [address] Consulting Physician Urology 10/27/24 documented as of this encounter
--- OUTSIDE RECORDS SUMMARY | 2024-11-02 01:08 | XMS_ITS | Data Portability ---
Author Organization [facility], [address] [place] [address] Neurology ([place]) Address [address] [place] [address] Care Team Providers Care Contract Technician Name Role Phone RUTHIE LARIOS Primary Care Provider Assessment Encounter Date Assessment Date Assessment LastModified by Organization Details LastModified Time 06/28/2024 06/28/2024 1. The patient has multiple medical problems, most notably HHT. Currently, his medical problems are stable from our end and he continues to follow with his multiple specialists. He does have a hospitalist program director, a thoracic surgeon, hem-onc doctor, a lung doctor, food service worker hospital , and currently they provide all of his medications. We will follow up with the patient on a six-month basis but of course sooner as needed. 2. I personally spent a total of 40 minutes on the patient on this date of service including both [id number] and xcc-[id number] josey time excluding any separately reportable services. [...] Details Recorded Time Aneurysm of thoracic aorta 817691590 Active 2023 follows with specialist (Dr. 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 2023 follows with specialist Ruthie Larios MD [address] [place] [address], [address] 3, [facility] 4 10:55:46 Coronary arterioscl erosis 11787925 Active 2023 Ruthie Larios MD [address] [place] [address], [phone] 3, [facility] 4 10:55:52 Anxiety disorder 740501961 Active 2023 Ruthie Larios MD [facility] [place] [address], [address] 3, [facility] 4 10:55:59 Multiple nodules of lung 075670964 Active 2023 Ruthie Larios MD [facility] [place] [address], [phone] 3, [facility] 4 10:56:15 Pulmonary emphysema 09643184 Active 2023 Ruthie Larios MD [facility] [place] [address], [address] 3, [facility] 4 10:57:27 Iron deficiency anemia 91042023 Active 2023 d/t chronic blood loss with HHT Ruthie Larios MD [address] [place] [address], 84867-925 3, [facility] 4 10:57:47 Chronic bronchitis 66422949 Active 2023 Ruthie Larios MD [facility] [place] [address], 6[address] 3, [facility] 4 10:57:55 Chronic pain syndrome 456184847 Active 2023 Ruthie Larios MD [facility] [place] [address], 08640-596 3, [facility] 4 10:58:32 Degenerati on of interverte bral disc 98107742 Active 2023 Ruthie Larios MD [address] [place] [address], 17[address]-749 3, [facility] 4 10:58:47 Aortic aneurysm 93485501 Active 2023 [facility] 4 10:59:38 Atrial fibrillati on 24149166 Active 2023 follows with cardiology at [facility]. has watchman Ruthie Larios MD [address] [place] [address], 91485-555 3, [facility] 4 11:12:09 Chronic obstructiv e pulmonary disease 33937697 Active 2023 follows with pulmonolog y Ruthie Larios MD [address] [place] [address], 488[address]890 3, [facility] 4 11:01:08 Neurapraxi a 529299016 Active 2023 of left upper extremity Ruthie Larios MD [address] [place] [address], 66377-082 3, [facility] 4 11:04:49 Problem Notes None recorded. Procedures Surgical History Date Name Laterality Status Provider Name and Address Organization Details Recorded Time procedure on heart completed [facility] 06/28/2024 10:57:11 cardiac catheterization completed [facility] 06/28/2024 10:57:17 procedure on brain completed [facility] 06/28/2024 10:57:36 procedure on lung completed [facility] 06/28/2024 10:58:01 Imaging Results None recorded. Procedure Notes None recorded. Medical Equipment None Reported. Allergies Allergen ID Allergen Name Allergen Category Reaction Reaction Severity Criticality Documentation Date Start Date Code Code System Note Provider Name and Address Organization Details Recorded Time [id number] Product containin g penicilli n and antibioti c (product) medicatio n hives Not available Not available 06/28/2024 27221 05 SNOMED Not Available Not Available Not [...] Address Organization Details Last Updated DateTime 06/28/2024 63762.35 g Tiara Gabriel [facility] 06/28/2024 10:46:00 Date Recorded Body mass index (BMI) Body height Provider Name and Address Organization Details Last Updated DateTime 06/28/2024 20.8 kg/m2 182.88 cm Tiara Gabriel [facility] 06/28/2024 10:46:24 Social History Question Answer Notes LastModified by Organizat ion Details LastModified Time Tobacco Smoking Status Current Every Day Smoker Tiara Gabriel [facility] 06/28/2024 10:56:48 How Many Packs Per Day (PPD)? 1/2 Pack [id number] Information not available 06/28/2024 Sex: Unknown Functional Status None recorded. Mental Status None recorded. Family History Relationship Description Onset Age of this Age Resolved Age Notes LastModified by Organization Details LastModified Time Father Osler hemorrhagic telangiectas ia syndrome [id number] Not available 10:53:57 Father Heart disease [id number] Not available 06/28 10:54:39 Paternal Grandfather Osler hemorrhagic telangiectas ia syndrome [id number] Not available 10:54:11 Mother Heart disease [id number] Not available 06/28 10:54:39 Mother Malignant tumor of breast [id number] Not available 06/28 10:54:49 Medical History No medical history recorded. Immunizations Vaccine Type Date Status Note Provider Nam e and Address Organization Details Recorded Time Influenza, split virus, quadrivalent, preservative 2 completed [facility] 06/28/2024 10:48:44 Influenza, split virus, quadrivalent, preservative 3 completed Tiarahazel Gabriel [facility] 06/28/2024 10:48:44 zoster recombinant 3 completed [facility] 06/28/2024 10:48:44 zoster recombinant 2 completed [facility] 06/28/2024 10:48:44 COVID-19, mRNA, LNP-S, PF, 100 mcg/0.5mL dose or 50 mcg/0.25mL dose 1 completed Tiara [facility] 06/28/2024 10:48:44 COVID-19, mRNA, LNP-S, PF, 100 mcg/0.5mL dose or 50 mcg/0.25mL dose 1 completed Tiarahazel Gabriel [facility] 06/28/2024 10:48:44 COVID-19, mRNA, LNP-S, PF, 100 mcg/0.5mL dose or 50 mcg/0.25mL dose 2 [facility] 06/28/2024 10:48:44 COVID-19, mRNA, LNP-S, PF, 100 mcg/0.5mL dose or 50 mcg/0.25mL dose 1 completed [facility] 06/28/2024 10:48:44 Pneumococcal conjugate PCV20, polysaccharide [id number] conjugate, adjuvant, PF 2 completed Tiarahazel Gabriel [facility] 06/28/2024 10:48:44 COVID-19, mRNA, LNP-S, bivalent, PF, 50 mcg/0.5 mL or 25mcg/0.25 mL dose 2 completed Tiara Gabriel [facility] 06/28/2024 10:48:44 COVID-19, mRNA, LNP-S, PF, 50 mcg/0.5 mL 4 completed Tiarahazel Gabriel [facility] 06/28/2024 10:48:44 COVID-19, mRNA, LNP-S, PF, 50 mcg/0.5 mL 3 completed Tiarahazel Gabriel [facility] 06/28/2024 10:48:44 influenza, unspecified formulation 2 completed Tiarahazel Gabriel [facility] 06/28/2024 10:48:44 influenza, unspecified formulation 8 completed Tiarahazel Gabriel [facility] 06/28/2024 10:48:44 Tdap 9 completed [facility] 06/28/2024 10:48:44 Pneumococcal conjugate PCV 13 6 completed [facility] 06/28/2024 10:48:44 Pneumococcal conjugate PCV 13 5 completed [facility] 06/28/2024 10:48:44 pneumococcal, unspecified formulation 2 completed [facility] 06/28/2024 10:48:44 zoster live 6 completed [facility] 06/28/2024 10:48:44 zoster live 6 completed [facility] 06/28/2024 10:48:44 Influenza, split virus, trivalent, PF 5 completed Tiara Gabriel [facility] 06/28/2024 10:48:44 Influenza, split virus, quadrivalent, PF 7 completed [facility] 06/28/2024 10:48:44 Influenza, split virus, quadrivalent, PF 9 completed [facility] 06/28/2024 10:48:44 Influenza, split virus, quadrivalent, PF 0 completed Tiara Gabriel [facility] 06/28/2024 10:48:44 Influenza, split virus, quadrivalent, PF 8 completed [facility] 06/28/2024 10:48:44 Influenza, split virus, quadrivalent, PF 1 completed [facility] 06/28/2024 10:48:44 Past Encounters Encounter ID Performer Location Encounter Start Date Encounter Closed Date Diagnosis/Indication Diagnosis SNOMED-CT Code Diagnosis ICD10 Code Diagnosis Note [id number] Ruthie Larios MD [address] [address] 06/28/2024 10:26:45 06/28/2024 11:49:21 Osler hemorrhagic telangiectasia syndrome 87472708 I78.0 Aneurysm o f thoracic aorta 065408830 I71.20 Anxiety disorder 5645016 06 F41.9 Aortic aneurysm 39982107 I71.9 Atrial fibrillation 4943 6004 I48.91 Chronic ob structive pulmonary disease 67818211 J44.9 Chronic pain syndrome 37 1637519 G89.4 Coronary arteriosclerosis 47028865 I25.10 Pulmonary emphysema 8743 3001 J43.9 Iron defic iency anemia 11728514 D50.9 Health Concerns Section Related Observation LastModified by Organization Detai ls LastModified Time None Recorded Concern Status LastModified by Organization Details LastModified Time None Recorded Advance Directives Directive None Recorded Payers Encounter Date Sequence Insurance Name Policy Number Policy Clark Covered Member ID Clark Member ID Guarantor Name 06/28/2024 1 [place]ARE[place] (MED[place]ARE[place] Sebastian Carrillo [id number] Sebastian Carrillo 06/28/2024 2 MED[place]ID-[place]: [employer] Sebastian Carrillo [id number] Sebastian Carrillo Notes Date Note Type Note [...] dept. colonoscopy-2016 Ruthie Larios MD [address] [place] [address], [phone], [place] [facility] 07/03/2024 09:31:11
--- NOTE | 2024-11-02 07:06 | WPDHPUPDATE1 ---
History and Physical Update Update Date/Time: 11/02/24 07:06 History and Physical has been reviewed, including an updated exam of the patient. There are NO changes in the patient's condition. Risks, benefits, and alternatives have been discussed and questions answered. Patient agrees to proceed with procedure.
[2024-11-02 07:50] LABS: Glucose Point of Care 105 mg/dl (65-105)
[2024-11-02] MEDS: LACTATED RINGERS 1,000 ML 30 ML IV CONT (07:50)
--- NOTE | 2024-11-02 09:04 | P.PNAN_ITS ---
Anes - Initial Pre Proc Eval Procedure: Operation Date: 11/02/24 09:30 Proposed Procedures p Cystoscopy, Urethral Dilatation - Avelino Linares MD Date/Time: 11/02/24 09:04 Surgeon: Avelino Linares MD Pre Op Diagnosis: Bulbous Stricture Patient Data Age: 64 Gender: M Height: 1.83 m Weight: 68.7 kg Last Vital Signs Temp 36.5 C 11/02/24 07:36 Pulse 62 11/02/24 07:36 Resp 18 11/02/24 07:36 BP 107/67 11/02/24 07:36 Pulse Ox 96 11/02/24 07:36 O2 Del Method Room Air 11/02/24 07:36 Allergies Allergy/AdvReac Type Severity Reaction Status Date / Time amoxicillin Allergy Itching Verified 10/24/24 12:56 Home Medications ?Medication ?Instructions ?Recorded ?Confirmed ?Type albuterol sulfate 2.5 mg/3 mL 2.5 mg inhalation PRN PRN 01/18/23 10/24/24 History (0.083 %) solution for nebulization Shortness Of Breath atorvastatin 20 mg tablet 20 mg PO DAILY 01/18/23 10/24/24 History ferrous gluconate 324 mg (38 mg 324 mg PO DAILY 01/18/23 10/24/24 History iron) tablet finasteride 5 mg tablet 5 mg PO DAILY 01/18/23 10/24/24 History gabapentin 300 mg capsule 600 mg PO HS 01/18/23 10/24/24 History isosorbide mononitrate 60 mg 60 mg PO DAILY 01/18/23 10/24/24 History tablet,extended release 24 hr lactulose 10 gram/15 mL oral 15 ml PO HS 01/18/23 10/24/24 History solution morphine 60 mg tablet,extended 60 mg PO TID 01/18/23 10/24/24 History release nitroglycerin 0.4 mg sublingual 5 mg sublingual PRN 01/18/23 10/24/24 History tablet omeprazole 40 mg capsule,delayed 40 mg PO DAILY 01/18/23 10/24/24 History release paroxetine HCl 20 mg tablet 20 mg PO QAM 01/18/23 10/24/24 History sumatriptan succinate 100 mg tablet 100 mg PO PRN PRN Migraine Headache 01/18/23 10/24/24 History tamsulosin 0.4 mg capsule 0.4 mg PO DAILY 01/18/23 10/24/24 History cyanocobalamin (vitamin B-12) 1,000 mcg PO QAM #90 tabs 01/20/23 10/24/24 Rx 1,000 mcg tablet (Vitamin B-12) metoprolol tartrate 100 mg tablet 100 mg PO Q12H 30 days #60 tabs 01/20/23 10/24/24 Rx Laboratory Tests 11/02/24 07:47 POC Capillary Glucose 105 mg/dl (65-105) Patient hx anesthesia problems: none Family hx anesthesia problems: none Results Review: All pre-operative results and documents have been reviewed as part of the pre- operative evaluation. [facility] Past Medical History Medical History (Updated 01/22/23 @ 20:46 by Zenobia Bean, AUCTION ASSISTANT) B12 deficiency anemia Chronic GERD COPD (chronic obstructive pulmonary disease) History of blood transfusion Anemia CAD (coronary artery disease) Aortic aneurysm Hereditary hemorrhagic telangiectasia Migraine Hyperlipidemia Anxiety disorder Chronic cystitis with hematuria Chronic abdominal pain BPH (benign prostatic hyperplasia) Hypertension Pulmonary artery hypertension History of pulmonary embolism DVT (deep venous thrombosis) Surgical History Surgical History H/O of nasal cauterization H/O colonoscopy H/O sinus surgery X3 History of cardiac catheterization X4 S/P IVC filter Family History Family History Mother Cancer Son Hereditary hemorrhagic telangiectasia Social History Social History Social History: The patient continues to smoke a half a pack a cigarettes a day. 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 B etween him and his they have 7 children of which 3 are biological to him. Code status full code Smoking packs per day: 0.5 Smoking cigarettes per day: 10.0 Years smoked: 38 Smoking pack-years: 19.00 Smoking status: Current every day smoker Tobacco type: cigarettes Alcohol intake: never Substance use: current Substance use type: marijuana and other Other substance usage details: Medical cannabis Lack of Transportation: No Lack of Food: Never True Current Housing: I Have Housing Concerned About Future Housing: No Difficulty Paying Gas/Electric Bills: No Difficulty Paying for Meds: No Currently Unemployed: No Education: Don't Know Difficulty w/ Childcare or Family Care: No Living arrangements: with family Spiritual care concerns: No Anes - Eval Final PreProcedure Day of Procedure 11/02/24 09:04 Patient weight: normal Heart: regular rate and rhythm Lungs: clear to auscultation and normal air movement Airway: Mallampati scale class II Neurological: alert and oriented Last oral intake: >/= 8 hours ASA classification: IV Emergent: no Anesthetic plan: proceed Anesthesia type and monitoring: general GIVS and standard monitoring Results Review: All pre-operative results and documents have been reviewed as part of the pre- operative evaluation. Informed Consent: The patient's anesthetic plan and its attendant risks and benefits were discussed with the patient/family/POA. Questions were solicited and answers provided to the satisfaction of the patient/family/POA.
[2024-11-02] MEDS: ceFAZolin 2 GM/D5W 50 ML 2 GM/50 ML BAG IVPB (10:10)
[2024-11-02] MEDS: LIDOCAINE 2% GEL UROJET 10 ML PKG MUCOUS MEM (10:10)
[2024-11-02 10:59] LABS: Glucose Point of Care 100 mg/dl (65-105)
[2024-11-02] MEDS: fentaNYL CITRATE INJ (*CRX) 100 MCG/2 ML VIAL 25 MCG IV PUSH (11:05)
--- NOTE | 2024-11-02 11:51 | P.OP_ITS ---
Procedure Note - Detailed Date of Procedure 11/02/24 Pre-op Diagnosis Bulbous Urethral Stricture Post-op Diagnosis Same Procedure Performed Cystoscopy, urethral dilatation Surgeon Avelino Linares MD Anesthesia General Description of Procedure The patient was brought to the operative suite where he was prepped and draped in a routine sterile fashion while in a dorsal lithotomy position after the uneventful induction of a general LMA anesthetic. Cystoscopy was undertaken with a 16F flexible cystoscope. There was a moderately constricting stricture of the bulbous urethra.. The prostatic urethral estimated length was 2.0cm. There was mild obstruction of the prostatic urethra with no median lobe enlar gement. The bladder itself was endoscopically normal without foreign body or neoplasm. The bladder mucosa was without hyperemia. There was a single orthotopic ureteral orifice bilaterally with clear efflux of urine. Using the Meera I dilated the urethra and bladder neck from [] F. The bladder was emptied and the patient was taken to the recovery room in good condition Drains No Pathology None sent Complications No immediate complications Condition Stable
== END 2024-11-02 12:15 | disposition home or self-care (01) ==
PROVIDERS: PCP Family Medicine; Visit Provider Urology
PROC: 0T7D8ZZ Dilation of Urethra, Via Natural or Artificial Opening Endoscopic (ICD-10-PCS; CPT 52281; principal; 2024-11-02 09:30)
DX: N35.912 Unspecified bulbous urethral stricture, male (principal); I10 Essential (primary) hypertension; E53.8 Deficiency of other specified B group vitamins; D64.9 Anemia, unspecified; E78.00 Pure hypercholesterolemia, unspecified; J44.9 Chronic obstructive pulmonary disease, unspecified; I48.91 Unspecified atrial fibrillation; I78.0 Hereditary hemorrhagic telangiectasia; I25.10 Atherosclerotic heart disease of native coronary artery without angina pectoris; F41.9 Anxiety disorder, unspecified; N40.0 Benign prostatic hyperplasia without lower urinary tract symptoms; N30.21 Other chronic cystitis with hematuria; G89.29 Other chronic pain; R10.9 Unspecified abdominal pain; F12.90 Cannabis use, unspecified, uncomplicated; F17.210 Nicotine dependence, cigarettes, uncomplicated; Z79.891 Long term (current) use of opiate analgesic; Z79.51 Long term (current) use of inhaled steroids; Z98.890 Other specified postprocedural states; Z86.718 Personal history of other venous thrombosis and embolism; Z86.79 Personal history of other diseases of the circulatory system; Z80.3 Family history of malignant neoplasm of breast; Z82.49 Family history of ischemic heart disease and other diseases of the circulatory system
CPT/HCPCS: 52281; 82948; J0690; J2003; J2405; J2704; J3010; J7120

== ENCOUNTER 2025-06-15 08:23 | Outpatient (CLI) | payer MEDICARE, MEDICAID, SELFPAY ==
--- OUTSIDE RECORDS SUMMARY | 2025-06-15 08:35 | XMS_ITS | Encounter Summary ---
Author Organization [facility] Care Team Providers Care Hardwood Floor Installation Helper Name Role Phone Sonja Barrett BrentonKamilah VICENTE Unavailable [phone] Gustavo Carter DO Primary Care Pr ovider Gustavo Carter DO Primary Care Pr ovider Jarred Turner MD Unavailable [phone] Jasper Baptiste DO Unavailable [phone] Aicha Johnson MD Unavailable [phone] Ruthie Toussaint MD Primary Care Provider [phone] Avelino Linares MD Unavailable [phone] Encounter Details Date Type Department Care Team (Latest Contact Info) Description 11/10/2016 Orders Only [facility] ProviderFei MD [address] [place] [id number] Social History Tobacco Use Types Packs/Day Years Used Date Smoking Tobacco: Former Sex and Gender Information Value Date Recorded Sex Assigned at Not on file Legal Sex Male 4:45 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 us Historical Provider [facility] FAISAL KIRK Final Result documented in this encounter Visit Diagnoses Not on filedocumented in this encounter Care Teams Hardwood Floor Installation Helper Relationship Specialty Start Date End Date Gustavo Carter DO [address] [facility] [address] [place] [address] PCP - General 02/14/18 06/20/18 Gustavo Carter DO [address] [facility] [address] [place] [address] PCP - General Internal Medicine 06/21/18 01/11/24 Ruthie Toussaint MD [address] [place] [address] PCP - General Family Medicine 06/09/24 Sonja Barrett LPN [address] [facility] [address] [place] [address] Fiberglass Product Tester 01/25/18 01/25/18 Jarred Turner MD [address] [id number] Consulting Physician Urology 03/20/19 Jasper Baptiste DO [address] [place] [address] Medical Oncologist/Hematologi Hematology and Oncology 11/12/20 Aicha Johnson MD [address] [place] [address] Consulting Physician Otolaryngology 07/29/21 Avelino Linares MD [address] [facility] [address] [place] [address] Consulting Physician Urology 10/27/24 documented as of this encounter
--- OUTSIDE RECORDS SUMMARY | 2025-06-15 08:35 | XMS_ITS | Encounter Summary ---
Author Organization [facility] Facility Care Team Providers Care Housing Management Representative Name Role Phone Sonja Barrett BrentonKamilah VICENTE Unavailable [phone] Gustavo Carter DO Primary Care Pr ovider Gustavo Carter DO Primary Care Pr ovider Jarred Turner MD Unavailable [phone] Jasper Baptiste DO Unavailable [phone] Aicha Johnson MD Unavailable [phone] Ruthie Toussaint MD Primary Care Provider [phone] Avelino Linares MD Unavailable [phone] Encounter Details Date Type Department Care Team (Latest Contact Info) Description 01/22/2018 Orders Only [facility]IN[facility] ProviderFei MD [address] [place] [address] Social History Tobacco Use Types Packs/Day Years Used Date Smoking Tobacco: Former Sex and Gender Information Value Date Recorded Sex Assigned at Not on file Legal Sex Male 4:45 AM 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 Gender Identity Not on file Sexual Orientation [...] on filedocumented in this encounter Care Teams Housing Management Representative Relationship Specialty Start Date End Date Gustavo Carter DO [address] [facility] [address] [place] [address] PCP - General 02/14/18 06/20/18 Gustavo Carter DO [address] [facility] [address] [place] [address] PCP - General Internal Medicine 06/21/18 01/11/24 Ruthie Toussaint MD [address] [place] [address] PCP - General Family Medicine 06/09/24 Sonja Barrett LPN 660 [facility] 300 [place] [address] Cross Tie Turner 01/25/18 01/25/18 Jarred Turner MD [address] [address] Consulting Physician Urology 03/20/19 Jasper Baptiste DO [address] [address] Medical Oncologist/Hematologi Hematology and Oncology 11/12/20 Aicha Johnson MD [address] [place] [address] Consulting Physician Otolaryngology 07/29/21 Avelino Linares MD [address] [facility] 200 [place] [address] Consulting Physician Urology 10/27/24 documented as of this encounter
--- OUTSIDE RECORDS SUMMARY | 2025-06-15 08:35 | XMS_ITS | Encounter Summary ---
Author Organization [facility] Facility Care Team Providers Care Activity Specialist Name Role Phone Sonja Barrett BrentonKamilah VICENTE Unavailable [phone] Gustavo Carter DO Primary Care Pr ovider Gustavo Carter DO Primary Care Pr ovider Jarred Turner MD Unavailable [phone] Jasper Baptiste DO Unavailable [phone] Aicha Johnson MD Unavailable [phone] Ruthie Toussaint MD Primary Care Provider [phone] Avelino Linares MD Unavailable [phone] Encounter Details Date Type Department Care Team (Latest Contact Info) Description 01/21/2018 Orders Only [facility] CLINCONV ProviderFei MD [address] [place] [address] Social History Tobacco Use Types Packs/Day Years Used Date Smoking Tobacco: Former Sex and Gender Information Value Date Recorded Sex Assigned at Not on file 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 Gender Identity Not on file Sexual Orientation [...] on filedocumented in this encounter Care Teams Activity Specialist Relationship Specialty Start Date End Date Gustavo Carter DO [address] [facility] [address] [place] [address] PCP - General 02/14/18 06/20/18 Gustavo Carter DO [address] [facility] [address] [place] [address] PCP - General Internal Medicine 06/21/18 01/11/24 Ruthie Toussaint MD [address] [place] [address] PCP - General Family Medicine 06/09/24 Sonja Barrett LPN 660 [facility] [address] [place] [address] Ear Specialist 01/25/18 01/25/18 Jarred Turner MD [address] [id number] Consulting Physician Urology 03/20/19 Jasper Baptiste DO [facility] [address] Medical Oncologist/Hematologi Hematology and Oncology 11/12/20 Aicha Johnson MD [address] [place] [address] Consulting Physician Otolaryngology 07/29/21 Avelino Linares MD [address] [facility] [address] [facility] 200 [place] [address] Consulting Physician Urology 10/27/24 documented as of this encounter
--- OUTSIDE RECORDS SUMMARY | 2025-06-15 08:35 | XMS_ITS | Encounter Summary ---
Author Organization [facility] Facility Care Team Providers Care Manager Labor Relations Name Role Phone Sonja Barrett BrentonKamilah VICENTE Unavailable [phone] Gustavo Carter DO Primary Care Pr ovider Gustavo Carter DO Primary Care Pr ovider Jarred Turner MD Unavailable [phone] Jasper Baptiste DO Unavailable [phone] Aicha Johnson MD Unavailable [phone] Ruthie Toussaint MD Primary Care Provider [phone] Avelino Linares MD Unavailable [phone] Encounter Details Date Type Department Care Team (Latest Contact Info) Description 01/23/2018 Orders Only [facility]INCON[facility] ProviderFei MD [address] [place] [address] Social History Tobacco Use Types Packs/Day Years Used Date Smoking Tobacco: Former Sex and Gender Information Value Date Recorded Sex Assigned at Not on file 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 Gender Identity Not on file Sexual Orientation [...] on filedocumented in this encounter Care Teams Manager Labor Relations Relationship Specialty Start Date End Date Gustavo Carter DO [address] [facility] 210 [place] [address] PCP - General 02/14/18 06/20/18 Gustavo Carter DO [address] [facility] [address] [place] [address] PCP - General Internal Medicine 06/21/18 01/11/24 Ruthie Toussaint MD [address] [place] [address] PCP - General Family Medicine 06/09/24 Sonja Barrett LPN 660 [facility] [address] [place] [address] Core Oven Tender 01/25/18 01/25/18 Jarred Turner MD [address] [address] Consulting Physician Urology 03/20/19 Jasper Baptiste DO [address] [address] Medical Oncologist/Hematologi Hematology and Oncology 11/12/20 Aicha Johnson MD [address] [place] [address] Consulting Physician Otolaryngology 07/29/21 Avelino Linares MD [address] [facility] 200 [place] [address] Consulting Physician Urology 10/27/24 documented as of this encounter
--- OUTSIDE RECORDS SUMMARY | 2025-06-15 08:36 | XMS_ITS | Encounter Summary ---
Author Organization [facility] Facility Care Team Providers Care Software Programmer Name Role Phone Adyconchita Garrettedd Alves Primary Care Pr ovider Jarred Turner MD Unavailable [phone] Jasper Baptiste DO Unavailable [phone] Aicha Johnson MD Unavailable [phone] Ruthie Toussaint MD Primary Care Provider [phone] Avelino Linares MD Unavailable [phone] Encounter Details Date Type Department Care Team (Latest Contact Info) Description 08/11/2018 Orders Only [facility]INCONV Provider, MD Fei [address] [place] [address] Social History Tobacco Use Types Packs/Day Years Used Date Smoking Tobacco: Former Smokeless Tobacco: Never Sex and Gender Information Value Date Recorded Sex Assigned at Not on file 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 us Historical Provider Final Res ult documented in this encounter Visit Diagnoses Not on filedocumented in this encounter Care Teams Software Programmer Relationship Specialty Start Date End Date Gustavo Carter DO [address] [facility] [address] [place] [address] PCP - General Internal Medicine 06/21/18 01/11/24 Ruthie Toussaint MD [address] [place] [address] PCP - General Family Medicine 06/09/24 Jarred Turner MD [address] [place] [address] Consulting Physician Urology 03/20/19 Jasper Baptiste DO [address] [place] [address] [address] [place] [address] Medical Oncologist/Hematologi Hematology and Oncology 11/12/20 Aicha Johnson MD [address] [place] [address] Consulting Physician Otolaryngology 07/29/21 Avelino Linares MD [address] [facility] [address] [place], [place] [address] Consulting Physician Urology 10/27/24 documented as of this encounter
--- OUTSIDE RECORDS SUMMARY | 2025-06-15 08:36 | XMS_ITS | Encounter Summary ---
Author Organization [facility] Address [address] [place] [address] Phone Care Team Providers Care Spa Manager Name Role Phone AdyconchitaGustavo Long Primary Care Pr ovider Jarred Turner MD Unavailable [phone] Jasper Baptiste DO Unavailable [phone] Aicha Johnson MD Unavailable [phone] Ruthie Toussaint MD Primary Care Provider [phone] Avelino Linares MD Unavailable [phone] Encounter Details Date Type Department Care Team (Latest Contact Info) Description 01/20/2022 Orders Only [facility] Scanning, Provider Social History Tobacco Use [...] on file 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 Gender Identity Not on file Sexual [...] on filedocumented in this encounter Care Teams Spa Manager Relationship Specialty Start Date End Date Gustavo Carter DO [address] [facility] [address] [place] [address] PCP - General Internal Medicine 06/21/18 01/11/24 Ruthie Toussaint MD [address] [place] [address] PCP - General Family Medicine 06/09/24 Jarred Turner MD [address] [place] [address] Consulting Physician Urology 03/20/19 Jasper Baptiste DO [address] [place] [address] Medical Oncologist/Hematologi Hematology and Oncology 11/12/20 Aicha Johnson MD [address] [place] [address] Consulting Physician Otolaryngology 07/29/21 Avelino Linares MD [address] [place] [address] Consulting Physician Urology 10/27/24 documented as of this encounter
--- OUTSIDE RECORDS SUMMARY | 2025-06-15 08:36 | XMS_ITS | Clinical Summary ---
Author Organization [facility] 8 [facility] Address [address] [place] [address] Phone Care Team Providers Care Cellophane Bath Mixer Name Role Phone Jarred Turner MD Unavailable [phone] Jasper Baptiste DO Unavailable [phone] Aicha Johnson MD Unavailable [phone] Ruthie Toussaint MD Primary Care Provider [phone] Avelino Linares MD Unavailable [phone] Allergies Active Allergy Reactions Criticality Noted Date Comments Aspirin Unknown High 10/26/2022 Bleeding Levofloxacin Hives,Rash Medium Clopidogrel Other (See comments) High 10/26/2022 Bleeding Medications medical cannabis eachIndication s:to aid increasing appetite Take 1 Dose by mouth 3 (three) times a day before meals Active OneTouch Ultra Test strip USE TO CHECK BLOOD SUGAR BEFORE MEALS OR AT BEDTIME 02/25/20 24 Active OneTouch Delica Plus Lancet 33 gauge misc USE TO CHECK SUGAR BEFORE MEALS OR AT BEDTIME 02/25/20 24 Active albuterol 2.5 mg /3 mL (0.083 %) nebulizer solutionIndica tions:Centrilo bular emphysema (HCC) TAKE 3 ML (2.5 MG TOTAL) BY NEBULIZATION 4 (FOUR) TIMES A DAY 375 mL 5 05/02/20 24 Active ascorbate calcium, vitamin C, 500 mg tablet Take 1 tablet by mouth daily 30 tablet 06/12/20 24 Active ma-xnb-vxlsk-K 1-ejrpqqf-iazx in 152-61-147-300 mcg tabletIndicati ons:supplement Take 1 tablet/capsule by mouth baker test before breakfast Active tranexamic acid (LYSTEDA) 650 mg tablet Take 1 tablet (650 mg total) by mouth 2 (two) times a day 10 tablet 09/25/20 24 Active Additional Information Patient not taking.Reported on 05/31/2025 naloxone (NARCAN) 4 mg/actuation spray,non-aero valeri Administer 1 spray into affected nostril(s) as needed for opioid reversal or respiratory depression Call 911. Administer a single spray in one nostril. Repeat every 3 minutes as needed if no or minimal response. 2 each 1 10/27/19 Active Additional Information Patient not taking.Reported on 05/31/2025 metoprolol tartrate (LOPRESSOR) 25 mg immediate release tablet TAKE 1 TABLET BY MOUTH TWICE A DAY 180 tablet 2 11/09/19 25 Active doxycycline (VIBRAMYCIN) 100 mg capsule Take 1 tablet/capsule (100 mg total) by mouth daily 60 tablet 6 11/14/19 25 Active omeprazole (PriLOSEC) 40 mg capsule TAKE 1 CAPSULE BY MOUTH EVERY DAY 90 capsule 12/01/19 25 Active gabapentin (NEURONTIN) 300 mg capsuleIndicat ions:Osler-Web er-Rendu disease TAKE 2 CAPSULES BY MOUTH EVERY DAY AT NIGHT 180 capsule 1 12/22/19 25 Active SUMAtriptan (IMITREX) 100 mg tablet TAKE 1 TABLET BY MOUTH ONCE NEEDED FOR MIGRAINE 9 tablet 1 01/16/20 25 Active atorvastatin (LIPITOR) 20 mg tablet Take 1 tablet (20 mg total) by mouth daily 90 tablet 1 01/16/20 25 Active ferrous sulfate 325 mg (65 mg of elemental iron) tablet TAKE 1 TABLET BY MOUTH THREE TIMES A DAY WITH MEALS 270 tablet 1 02/10/20 25 Active albuterol HFA (PROVENTIL HFA,VENTOLIN HFA,PROAIR HFA) 90 mcg/actuation inhaler TAKE 2 PUFFS BY MOUTH EVERY 6 HOURS NEEDED FOR WHEEZE 18 each 6 03/09/20 Active Additional Information Patient not taking.Reported on 05/31/2025 Airsupra 90-80 mcg/actuation HFA aerosol inhaler INHALE 2 INHALATIONS EVERY 6 (SIX) HOURS NEEDED (SOB) 04/02/20 25 Active finasteride (PROSCAR) 5 mg tablet Take 1 tablet (5 mg total) by mouth daily 02/23/20 25 Active PARoxetine (PAXIL) 20 mg tablet TAKE 1 TABLET BY MOUTH EVERY DAY IN THE MORNING 30 tablet 1 05/08/20 25 Active mirtazapine (REMERON) 7.5 mg tablet TAKE 1 TABLET BY MOUTH EVERY DAY NIGHTLY 90 tablet 05/14/20 25 Active nitroglycerin (NITROSTAT) 0.4 mg SL tablet TAKE 1 TABLET (0.4 MG TOTAL) BY MOUTH EVERY 5 MINUTES NEEDED FOR CHEST PAIN 25 tablet 3 05/16/20 25 Active morphine ER (MS CONTIN) 60 mg 12 hr tabletIndicati ons:Hereditary hemorrhagic telangiectasia ,Tmfci-Jujql-F endu disease Take 1 tablet (60 mg total) by mouth 3 (three) times a day Dose increased to 60 mg TID as of 09/14/2022 90 tablet 05/24/20 25 Active isosorbide mononitrate ER (IMDUR) 60 mg 24 hr tabletIndicati ons:Coronary artery disease 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,Dyspn ea, unspecified type TAKE 1 TABLET BY MOUTH EVERY DAY 90 tablet 1 06/05/20 25 Active lactulose 0.67 gram/mL solution TAKE 15 ML (10 G TOTAL) BY MOUTH NIGHTLY 473 mL 2 06/11/20 25 Active isosorbide mononitrate ER (IMDUR) 60 mg 24 hr tabletIndicati ons:Coronary artery disease 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,Dyspn ea, unspecified type TAKE 1 TABLET BY MOUTH EVERY DAY 90 tablet 1 12/22/19 25 2024 Discontinued lactulose 0.67 gram/mL solution TAKE 15 ML (10 G TOTAL) BY MOUTH NIGHTLY 1350 mL 02/08/20 25 2024 Discontinued morphine ER (MS CONTIN) 60 mg 12 hr tabletIndicati ons:Hereditary hemorrhagic telangiectasia ,Kuvty-Cekkj-G endu disease Take 1 tablet (60 mg total) by mouth 3 (three) times a day Dose increased to 60 mg TID as of 09/14/2022 90 tablet 04/23/20 25 2024 Discontinued(R eorder) Active Problems Problem Noted Date Diagnosed Date Oral bleeding 01/16/2025 Encounter for adjustment and management of unspecified implanted device 07/19/2024 A-fib 2024 Atrial fibrillation 02/18/2024 Simple chronic bronchitis 09/06/2023 Pulmonary air trapping 04/27/2023 Iron deficiency anemia due to chronic blood loss 03/18/2023 Epistaxis 06/12/2021 Cigarette nicotine dependence in remission 06/18 Personal history of thromboembolic disease 06/01 Anxiety 06/01/2019 Non-seasonal allergic rhinitis due to pollen Multiple pulmonary nodules 06/01/2019 Chronic cough 06/01/2019 Shortness of breath 06/01/2019 Centrilobular emphysema 06/01/2019 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 CAD (coronary artery disease) 11/03/2016 Thoracic aortic aneurysm without rupture 012 Encounters Date Type Department Care Team Description 05/31/2025 2:00 PM CDT Office Visit [facility] [address] [facility] 8[address] [place] [address] [place] [address] Ramon Schulte MD HHT (hereditary hemorrhagic telangiectasia) (CMS/HCC) (HCC) (Primary Dx); Epistaxis; Iron deficiency anemia due to chronic blood loss; Centrilobular emphysema (HCC); Pulmonary arteriovenous malformation 05/31/2025 1:17 PM CDT - 05/31/2025 11:59 PM CDT Hospital Encounter [facility] [address] [facility] [address] [place] [address] Centrilobular emphysema (HCC) Discharge Disposition: Discharge to home or self care 05/18/2025 Orders Only [facility] [address] [place] [address] [address] [place] [address] Fei Lowe MD 05/17/2025 Orders Only [facility] [address] [place] [address] [address] [place] [address] Fei Lowe MD 04/19/2025 11:30 AM CDT Office Visit [facility] [address] [facility] [address] [place] [phone] Jasper Baptiste DO Iron deficiency anemia due to chronic blood loss (Primary Dx); HHT (hereditary hemorrhagic telangiectasia) (CMS/HCC) (HCC); Iron deficiency anemia, unspecified iron deficiency anemia type 04/19/2025 11:00 AM CDT Lab [facility] [address] [place] [address] HHT (hereditary hemorrhagic telangiectasia) (CMS/HCC) (HCC); Iron deficiency anemia due to chronic blood loss 04/12/2025 11:17 AM CDT - 04/12/2025 11:59 PM CDT Hospital Encounter [facility] Medical Office Building [address] [facility] [place] [address] HHT (hereditary hemorrhagic telangiectasia) (CMS/HCC) (HCC); Pulmonary nodules; Aneurysm of ascending aorta without rupture Discharge Disposition: Discharge to home or self care 03/21/2025 2:15 PM CDT Office Visit 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 (Primary Dx) 03/20/2025 11:15 AM CDT - 03/20/2025 11:59 PM CDT Hospital Encounter [facility] Respiratory Therapy [address] [place] [address] Multiple pulmonary nodules; Non-seasonal allergic rhinitis due to pollen; Anxiety; Chronic cough; Cigarette nicotine dependence in remission; Epistaxis Discharge Disposition: Discharge to home or self care from Last 3 Months Immunizations Immunization Administration Dates Next Due Influenza, Quadrivalent, Spl [...] SURGERY 09/03/2021 - 10/03/2021 SINUS SURGERY 09/02/2023 OTHER SURGICAL HISTORY 03/04/2024 - 04/02/2024 watchman PROSTATECTOMY 11/04/2024 - 12/01/2024 NASAL HEMORRHAGE CONTROL 01/24/2025 Nose/Bilateral Procedure: CONTROL OF NASAL HEMORRHAGE ENDOSCOPIC.; Surgeon: Aicha Johnson MD; Location: [facility]; Service: Otolaryngology; Laterality: Bilateral; Medical History Medical History Date Comments Coronary artery disease Aortic aneurysm Pulmonary embolism Lung nodules Hypertension Seasonal allergies COPD (chronic obstructive pulmonary disease) Anxiety Heart disease DVT (deep venous thrombosis) Oexhd-Zcyli-Rrvdj disease Epistaxis HHT (hereditary hemorrhagic telangiectasia) Chronic, continuous use of opioids Bleeding disorder Diabetes mellitus (HCC) Family History Medical History [...] Used Date Smoking Tobacco: Former Cigarettes 0.5 41.7 1 974 - 2011 Smokeless Tobacco: Never Tobacco Cessation:Counseling Given: Not Answered Alcohol Use Standard Drinks/Week Comments Not Currently 0 (1 standard drink = 0.6 oz pur e alcohol) AUDIT-C Answer Date Recorded Q1: How often do you have a drink containing alcohol? Never 01/24/2025 Q2: How many drinks containi ng alcohol do you have on a typical day when you are drinking? Patient does not drink Q3: How often do you have si x or more drinks on one occasion? Never 01/24/2025 Personal Safety Answer Date Recorded Have you ever been in or are you currently in a harmful physical or emotional relationship or is someone making you feel afraid or unsafe? 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 Gender Identity Not on file Sexual Orientation Not on file Obstetrics History Last Filed Vital Signs Vital Sign Reading Time Taken Comments Blood Pressure 123/76 05/31/2025 1:47 PM CDT Pulse 71 05/31/2025 1:47 PM CDT Temperature 36.2 C (97.2 F) 05/31/2025 1:47 PM CDT Respiratory Rate 18 05/31/2025 1:47 PM CDT Oxygen Saturation 97% 05/31/2025 1:47 PM CDT Inhaled Oxygen Concentration - - Weight 68.5 kg (151 lb) 05/31/2025 1:47 PM CDT Height 179.1 cm (5' 10.5) 05/31/2025 1:47 PM CD T Body Mass Index 21.36 05/31/2025 1:47 PM CDT Plan of Treatment Health Maintenance Due Date Last Done Comments Colon Cancer Screening-Colonoscopy 1961 Depression Screening 1961 Hepatitis C Screening 1961 Prostate Cancer Screening-PSA 1961 Hepatitis B Screening 1979 Regular Well Visit/Exam 18-64 1979 Lung Cancer Screening 2011 Covid-19 Vaccine (5 - 2024-2 6 season) 2025 04/28/2022, 08/25/2021, 01/08/2021, Additional history exists Influenza Vaccine (#1) 2025 , 07/09/2022, 07/21/2021, Additional history exists DTaP/Tdap/Td Vaccine (2 - Td or Tdap) 03/03/2029 03/03/2019 Pneumococcal vaccine <65 Completed 09/02/2022, 10/2015 Zoster Vaccine Completed 11/18/2022, 08/06, 10/04/2015 Medical Devices Implanted Type Area Manager Loan Device Identifier Shelf Expiration Date Model / Serial / Lot [employer] Gabriela Device Closure 24mm Lt Watchman Flx Pro Cardiac Strl La [id number] - S0 - [id number] Implanted:Qty: 1 on 2024 by Victoriano Loyola MD at [facility] Left Atrial Appendage Occluder N/A: Atrial Appendage [employer] Gabriela 12/02/2026 [id number] / 0 / [id number] [employer] V[employer] System Closure Repair Femoral Artery Suture Mediated Perclose Prostyle 98652-13 - S0 - [id number] Implanted:Qty: 1 on 2024 by Victoriano Loyola MD at [facility] Vascular Closure Device N/A: Femoral [employer] 12/01/2025 [id number] / 0 / [id number] [employer] V[employer] System Closure Repair Femoral Artery Suture Mediated Perclose Prostyle 26713-79 - S0 - [id number] Implanted:Qty: 1 on 2024 by Victoriano Loyola MD at [facility] Vascular Closure Device N/A: Femoral [employer] 12/01/2025 [id number] / 0 / [id number] [employer] [id number] Coil Embolization [place] Microcoil [place] L14cm Od3mm .018 In Catheter - [id number] Implanted:Qty: 1 on 11/17/2021 at [facility] [employer] 11/09/2022 [id number] / / [id number] [employer] [id number] Coil Embolization [employer] [place] L14cm Od3mm .018 In Catheter - [id number] Implanted:Qty: 1 on 11/17/2021 at [facility] [employer] 03/19/2022 [id number] / / [id number] [employer] [id number] Coil Embolization [employer] [place] L14cm Od3mm .018 In Catheter - [id number] Implanted:Qty: 1 on 11/17/2021 at [facility] [employer] 03/19/2022 [id number] / / [id number] [employer] [id number] Coil Embolization [employer] [place] L14cm Od3mm .018 In Catheter - [id number] Implanted:Qty: 1 on 11/17/20[facility] 03/02/2023 [id number] / / [id number] Procedures Procedure Name Priority Date/Time Associated Diagnosis Comments PULMONARY FUNCTION TEST (PFT) Routine 05/31/2025 1:34 PM CDT Centrilobular emphysema (HCC) FERRITIN Routine 05/17/2025 2:26 PM CDT CBC WITH AUTO DIFFERENTIAL Routine 05/17/2025 10:24 AM CDT DIFFERENTIAL AUTO Routine 04/19/2025 11: 14 AM CDT HHT (hereditary hemorrhagic telangiectasia) (CMS/HCC) (HCC) Iron deficiency anemia due to chronic blood loss CBC WITH AUTO DIFFERENTIAL Routine 04/19/2025 11:14 AM CDT HHT (hereditary hemorrhagic telangiectasia) (CMS/HCC) (HCC) Iron deficiency anemia due to chronic blood loss FERRITIN Routine 04/19/2025 11:14 AM CDT HHT (hereditary hemorrhagic telangiectasia) (CMS/HCC) (HCC) Iron deficiency anemia due to chronic blood loss IRON PROFILE W/ IBC Routine 04/19/2025 1 1:14 AM CDT HHT (hereditary hemorrhagic telangiectasia) (CMS/HCC) (HCC) Iron deficiency anemia due to chronic blood loss CT CHEST W CONTRAST Schedule Routine, Read Routine (OP Routine) 04/12/2025 11:36 AM CDT HHT (hereditary hemorrhagic telangiectasia) (CMS/HCC) (HCC) Pulmonary nodules Aneurysm of ascending aorta without rupture POCT CREATININE FOR CONTRAST EVALUATION Routine 04/12/2025 11:29 AM CDT POCT LIPID PANEL Routine 03/21/2025 2:50 PM CDT Coronary artery disease 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 PULMONARY FUNCTION TEST (PFT) Routine 03/20/2025 12:00 PM CDT Multiple pulmonary nodules Non-seasonal allergic rhinitis due to pollen Anxiety Chronic cough Cigarette nicotine dependence in remission Epistaxis from Last 3 Months Results * Pulmonary Function Test - (05/31/2025 1:34 PM CDT) FVC PRE 4.29 L [facility] FVC %PRE PRED 99 % [facility] FEV1 PRE 2.65 L [facility] FEV1 %PRE PRED 80 % [facility] FEV1/FVC PRE 61.8 % [facility] Anatomical Region Laterality Modality PFT 05/31/2025 1:22 PM CDT Narrative 06/02/2025 3:07 AM CDT PFT performed at:->[facility] PFT [facility]- [email or web address] Procedure:->Spirometry Pulmonary Function Test Interpretation SPIROMETRY: The FEV1 to FVC ratio is reduced. The flow volume loop is normal. Impression: There is a minimal obstructive defect. Compared with most recent study, there has been significant interval improvement of the FVC. The attending pulmonary physician certifies a physician presence in the [facility] during the administration of aerosolized bronchodilator. The attending pulmonary physician certifies that he/she has reviewed and interpreted the graphic and numerical data of this pulmonary function study and agrees with the written final report. The lower limit of normal for PaO2 and %HbO2 is age dependent. However, the [facility] Pulmonary Function Laboratory defines hypoxemia as a PaO2 <56 mm Hg or a %HbO2 <89%. Starting on October of 2024 the [facility] Pulmonary Function Laboratory utilizes race neutral GLI Global normative equations. Ramon Schulte MD PFT ORDERABLES Final Res ult * Ferritin (05/17/2025 2:26 PM CDT) Blood Historical Provider MD LAB BLOOD ORDERABLES Leticia l Result * CBC with auto differential (05/17/2025 10:24 AM CDT) Blood Historical Provider LAB BLOOD ORDERABLES Leticia l Result * Differential, auto (04/19/2025 11:14 AM CDT) Neutrophil abs 2.71 1.50 - 6.50 K/cumm Comment:Testing performed by : [address] [address] Imm gran abs 0.01 0.00 - 0.10 K/cumm [facility] Comment:Testing performed by : [address], [place]., [address] Lymphocyte abs 1.81 0.80 - 3.30 K/cumm [facility] Comment:Testing performed by : [address], [place]., [address] Monocyte abs 0.53 0.20 - 0.80 K/cumm [facility] Comment:Testing performed by : [address] [address] Eosinophil abs 0.27 0.00 - 0.50 K/cumm [facility] Comment:Testing performed by : [address] [address] Basophil abs 0.05 0.00 - 0.10 K/cumm [facility] Comment:Testing performed by : [address] [address] Neutrophil pct 50.4 % [facility] Comment: Interpretive Data Percent cell count reference ranges are not reported, since discordance with absolute values may lead to misinterpretation of CBC data. Current Interpretive Data was last revised on 2018. Testing performed by: [address] [address] Imm gran pct 0.2 % [facility] Comment: Interpretive Data Percent cell count reference ranges are not reported, since discordance with absolute values may lead to misinterpretation of CBC data. Current Interpretive Data was last revised on 2018. Testing performed by: [address] [address] Lymphocyte pct 33.6 % [facility] Comment: Interpretive Data Percent cell count reference ranges are not reported, since discordance with absolute values may lead to misinterpretation of CBC data. Current Interpretive Data was last revised on 2018. Testing performed by: [address] [address] Monocyte pct 9.9 % [facility] Comment: Interpretive Data Percent cell count reference ranges are not reported, since discordance with absolute values may lead to misinterpretation of CBC data. Current Interpretive Data was last revised on 2018. Testing performed by: [address] [address] Eosinophil pct 5.0 % [facility] Comment: Interpretive Data Percent cell count reference ranges are not reported, since discordance with absolute values may lead to misinterpretation of CBC data. Current Interpretive Data was last revised on 2018. Testing performed by: [address] [address] Basophil pct 0.9 % [facility] Comment: Interpretive Data Percent cell count reference ranges are not reported, since discordance with absolute values may lead to misinterpretation of CBC data. Current Interpretive Data was last revised on 2018. Testing performed by: [address] [address] Blood 04/19/2025 11:1 4 AM CDT 04/19/2025 11:18 AM CDT Jasper Baptiste DO LAB BLOOD ORDERABLES Final R esult [facility] [address] [facility] Department [place] [address] * (ABNORMAL) Iron profile w/ IBC (04/19/2025 11:14 AM CDT) Iron 50 50 - 150 mcg/dL Comment:Testing performed by : [address] [address] TIBC 283 250 - 400 mcg/dL [facility] Comment:Testing performed by : [address] [address] Transferrin saturation 18(L) 20 - 50 % [facility] Comment:Testing performed by : [address] [address] Blood 04/19/2025 11:1 4 AM CDT 04/19/2025 1:46 PM CDT us Jasper Baptiste DO LAB BLOOD ORDERABLES Final R esult [facility] [address] [facility] Department [place] [address] * (ABNORMAL) CBC with auto differential (04/19/2025 11:14 AM CDT) WBC 5.38 3.80 - 9.90 K/cumm Comment:Testing performed by : [address] [address] Hgb 11.6(L) 13.0 - 17.5 g/dL [facility] Comment:Testing performed by : [address] [address] Hct 34.8(L) 38.9 - 50.3 % [facility] Comment:Testing performed by : [address] [address] Plt 232 150 - 400 K/cumm [facility] Comment:Testing performed by : [address] [address] MPV 9.9 9.1 - 12.3 fL [facility] Comment:Testing performed by : [address] [address] RBC 3.80(L) 4.30 - 5.80 M/cumm [facility] Comment:Testing performed by : [address] [address] MCV 91.6 81.3 - 96.4 fL [facility] Comment:Testing performed by : [address] [address] MCH 30.5 27.1 - 33.3 pg [facility] Comment:Testing performed by : [address] [address] MCHC 33.3 32.3 - 35.7 g/dL [facility] Comment:Testing performed by : [address] [address] RDW CV 15.4(H) 11.1 - 14.9 % [facility] Comment:Testing performed by : [address] [address] RDW SD 51.7(H) 35.7 - 48.1 fL [facility] Comment:Testing performed by : [address] [address] NRBC abs 0.00 0.00 - 0.01 K/cumm [facility] Comment:Testing performed by : [address] [address] ANC Prelim 2.71 1.50 - 6.50 K/cumm [facility] Comment: Interpretive Data The rapid ANC is a preliminary automated count and may vary from the final ANC (Neut Abs) reported in the WBC differential that follows. Current interpretive data was last revised 2024. Testing performed by: [address] [address] Blood 04/19/2025 11:1 4 AM CDT 04/19/2025 11:18 AM CDT Jasper Baptiste DO LAB BLOOD ORDERABLES Final R esult Performing Organization Address City/[facility]/ZIP Co de Phone Number [address] [place] [address] * Ferritin (04/19/2025 11:14 AM CDT) Ferritin 52 30 - 400 ng/mL Comment:Testing performed by : [address] [address] Blood 04/19/2025 11:1 4 AM CDT 04/19/2025 1:46 PM CDT Jasper Baptiste DO LAB BLOOD ORDERABLES Final R esult MARA[address] [place] [address] * CT Chest W Contrast (04/12/2025 11:36 AM CDT) Anatomical Region Laterality Modality Body N/A Computed Tomogra phy 04/27/2025 10:4 3 AM CDT Narrative 04/27/2025 10:52 AM CDT EXAM DESCRIPTION: CT CHEST W CONTRAST REASON FOR STUDY: aneurysm and pulmonary nodules 6 month f/u on aneurysm and pulmonary nodules. Hx of HHT. No complaints. TECHNIQUE: CT scan of the chest performed with intravenous contrast using helical scanning technique with dynamic intravenous contrast injection. Reconstructed coronal and sagittal MPR images reviewed. All images stored on PACS. Automated exposure control was used as a dose optimization technique for this examination. CONTRAST TYPE/DOSE: 100mL of IOVERSOL 350 MG IODINE/ML INTRAVENOUS SYRINGE injected via intravenous COMPARISON: 09/20/2024 FINDINGS: LUNGS: There is a minimal biapical pleural thickening and scarring. There is no definite evidence of a pneumothorax. The central airways are grossly patent. There is scattered mild bronchial wall thickening, which is concerning for mild acute or chronic bronchitis/bronchiolitis. There are mild emphysematous changes of lungs with scattered mild subsegmental atelectasis and scarring. There is no definite evidence of focal consolidation or pleural effusion. There is redemonstration of multiple nodular opacities in the right upper lobe, which are contiguous with branches of the right upper lobe pulmonary arteries and vein, and is compatible with patient's history of AV malformations. For example, there is a stable nodular opacity in the lateral right upper lobe measuring 0.6 cm (axial image 26). There is a stable nodular opacity in the anterior right upper lobe measuring 0.5 cm (axial image 29). There are additional scattered small pulmonary nodules noted, which are overall grossly unchanged since 10/20/2021, and therefore likely benign. For example, there is a stable 0.4 cm pulmonary nodule in the posterolateral right upper lobe (axial image 34). There is a stable subpleural 0.4 cm pulmonary nodule in the lateral left upper lobe (axial image 29). There is a stable 0.6 cm pulmonary nodule in the central left lower lobe (axial image 81). MEDIASTINUM/EMILIO: The heart size is stable. There is no definite evidence of a pericardial effusion. There is a left atrial appendage occluder device noted. There are atherosclerotic changes of the thoracic aorta with grossly stable aneurysmal dilatation of the ascending thoracic aorta measuring up to 4.1 cm at the level of the main pulmonary artery. There are atherosclerotic changes of the coronary vessels. There is no definite evidence of mediastinal, hilar, or axillary lymphadenopathy there are scattered prominent subcentimeter mediastinal lymph nodes noted with largest measuring 0.8 cm in the precarinal region (axial image 48). There are scattered prominent subcentimeter hilar lymph nodes noted bilaterally with largest measuring 0.8 cm right (axial image 53), and 0.6 cm on the left (axial image 52). CHEST WALL: No masses. No subcutaneous air. HARDWARE/LINES/TUBES: None. UPPER ABDOMEN: There is redemonstration of numerous nodular foci of enhancement involving the liver, which is overall grossly similar to the prior study, and may be related to underlying vascular malformations. The bilateral adrenal glands are grossly stable and unremarkable. There is a stable cyst in the upper pole of the right kidney measuring 2.3 cm, which does not require follow-up imaging. There is stable cyst in the left kidney measuring 2.5 cm, which does not require follow-up imaging. MUSCULOSKELETAL: There is a minimal dextroscoliotic curvature of the spine with degenerative changes. OTHER: No other significant abnormality. IMPRESSION: 1. Interval resolution of the previously visualized patchy ground-glass airspace opacities in the right upper lobe. 2. Mild emphysematous changes of lungs with scattered mild subsegmental atelectasis and scarring. No definite evidence of focal consolidation. Recommend evaluation for annual lung cancer screening enrollment if the patient qualifies based on clinical factors and smoking history. 3. Redemonstration of multiple nodular opacities in the right upper lobe, which are contiguous with branches of the right upper lobe pulmonary arteries and vein, and is compatible with patient's history of AV malformations. 4. Additional scattered small pulmonary nodules noted, which are overall grossly unchanged since 10/20/2021, and therefore likely benign. 5. Scattered mild bronchial wall thickening, which is concerning for mild acute or chronic bronchitis/bronchiolitis. 6. Redemonstration of numerous nodular foci of enhancement involving the liver, which is overall grossly similar to the prior study, and may be related to underlying vascular malformations. This may be further evaluated with MRI with liver protocol as clinically indicated. THIS IS AN ELECTRONICALLY VERIFIED FINAL REPORT 04/27/2025 10:52 AM - Electronically signed by James Montes D.O. PS: PS Report ID: [id number] Reading Location: [id number] Procedure Note James Montes, DO - 04/27/2025 EXAM DESCRIPTION: CT CHEST W CONTRAST REASON FOR STUDY: aneurysm and pulmonary nodules 6 month f/u on aneurysm and pulmonary nodules. Hx of HHT. No complaints. TECHNIQUE: CT scan of the chest performed with intravenous contrast using helical scanning technique with dynamic intravenous contrast injection. Reconstructed coronal and sagittal MPR images reviewed. All images storedon PACS. Automated exposure control was used as a dose optimizationtechnique for this examination. CONTRAST TYPE/DOSE: 100mL of IOVERSOL 350 MG IODINE/ML INTRAVENOUS SYRINGE injected via intravenous COMPARISON: 09/20/2024 FINDINGS: LUNGS: There is a minimal biapical pleural thickening andscarring. There is no definite evidence of a pneumothorax. The central airways are grossly patent. There is scattered mild bronchial wall thickening, whichis concerning for mild acute or chronic bronchitis/bronchiolitis. There aremild emphysematous changes of lungs with scattered mild subsegmentalatelectasis and scarring. There is no definite evidence of focal consolidation orpleural effusion. There is redemonstration of multiple nodular opacities in the right upper lobe, which are contiguous with branches of the right upper lobe pulmonary arteries and vein, and is compatible with patient's history of AV malformations. For example, there is a stable nodular opacity in thelateral right upper lobe measuring 0.6 cm (axial image 26). There is a stablenodular opacity in the anterior right upper lobe measuring 0.5 cm (axial image29). There are additional scattered small pulmonary nodules noted, which are overall grossly unchanged since 10/20/2021, and therefore likely benign.For example, there is a stable 0.4 cm pulmonary nodule in the posterolateralright upper lobe (axial image 34). There is a stable subpleural 0.4 cmpulmonary nodule in the lateral left upper lobe (axial image 29). There is a stable0.6 cm pulmonary nodule in the central left lower lobe (axial image 81). MEDIASTINUM/EMILIO: The heart size is stable. There is no definiteevidence of a pericardial effusion. There is a left atrial appendage occluderdevice noted. There are atherosclerotic changes of the thoracic aorta withgrossly stable aneurysmal dilatation of the ascending thoracic aorta measuring upto 4.1 cm at the level of the main pulmonary artery. There areatherosclerotic changes of the coronary vessels. There is no definite evidence of mediastinal, hilar, or axillary lymphadenopathy there are scattered prominent subcentimeter mediastinallymph nodes noted with largest measuring 0.8 cm in the precarinal region (axial image 48). There are scattered prominent subcentimeter hilar lymph nodes noted bilaterally with largest measuring 0.8 cm right (axial image 53),and 0.6 cm on the left (axial image 52). CHEST WALL: No masses. No subcutaneous air. HARDWARE/LINES/TUBES: None. UPPER ABDOMEN: There is redemonstration of numerous nodular foci of enhancement involving the liver, which is overall grossly similar to theprior study, and may be related to underlying vascular malformations. Thebilateral adrenal glands are grossly stable and unremarkable. There is a stablecyst in the upper pole of the right kidney measuring 2.3 cm, which does notrequire follow-up imaging. There is stable cyst in the left kidney measuring 2.5cm, which does not require follow-up imaging. MUSCULOSKELETAL: There is a minimal dextroscoliotic curvature of thespine with degenerative changes. OTHER: No other significant abnormality. IMPRESSION: 1. Interval resolution of the previously visualized patchy ground-glass airspace opacities in the right upper lobe. 2. Mild emphysematous changes of lungs with scattered mild subsegmental atelectasis and scarring. No definite evidence of focal consolidation. Recommend evaluation for annual lung cancer screening enrollment if the patient qualifies based on clinical factors and smoking history. 3. Redemonstration of multiple nodular opacities in the right upperlobe, which are contiguous with branches of the right upper lobe pulmonaryarteries and vein, and is compatible with patient's history of AV malformations. 4. Additional scattered small pulmonary nodules noted, which are overall grossly unchanged since 10/20/2021, and therefore likely benign. 5. Scattered mild bronchial wall thickening, which is concerning formild acute or chronic bronchitis/bronchiolitis. 6. Redemonstration of numerous nodular foci of enhancement involving the liver, which is overall grossly similar to the prior study, and may berelated to underlying vascular malformations. This may be further evaluated withMRI with liver protocol as clinically indicated. THIS IS AN ELECTRONICALLY VERIFIED FINAL REPORT 04/27/2025 10:52 AM - Electronically signed by James Montes D.O. PS: PS Report ID: [id number] Reading Location: [place] [address] Jasper Baptiste DO IMG CT PROCEDURES Final Resu lt * POCT creatinine for contrast evaluation (04/12/2025 11:29 AM CDT) Pathologist [facility] Creatinine POC 1.10 0.80 - 1.30 mg/dL Comment:Testing performed by : [facility], [address] [place] [address]., [id number] Blood 04/12/2025 11:2 9 AM CDT 04/12/2025 11:29 AM CDT Jasper Baptiste DO POINT OF CARE TEST ORDERABLE S Final Result [facility] [address] [facility] Department [place] [address] * (ABNORMAL) POCT lipid panel (03/21/2025 2:50 PM CDT) HDL, POC 32(A) >=40 mg/dL Triglycerides, POC 116 <=149 mg/dL LDL Cholesterol POC 60 <=129 mg/dL Chol/HDL Ratio, POC 3.6 NONE Non-HDL Cholesterol, POC 83 NONE mg/dL Cholesterol Total, POC 115 30 - 199 mg/dL Capillary blood 03/21/2025 2 :50 PM CDT Peterson Dawson MD POINT OF CARE TEST ORDERA BLES Final Result * (ABNORMAL) Pulmonary Function Test - (03/20/2025 12:00 PM CDT) FVC POST 3.96 3.75 - 6.20 L [facility] FEV1 POST 2.87 2.80 - 4.69 L [facility] [id number] 72.50 63.91 - 87.26 % [facility] [id number]% POST 2.01 1.39 - 5.12 L/s [facility] PEF POST 7.31 6.84 - 10.82 L/s [facility] DLCOc SB 16.60(A) 24.16 - 38.02 ml/(min*mm Hg) [facility] DLCO/VA PRE 2.74(A) 2.94 - 5.10 ml/(min*mm Hg*L) [facility] VA 6.06(A) 7.59 - 7.59 L [facility] TLC PRE 7.21 6.58 - 8.89 L [facility] VC PRE 3.88(A) 3.98 - 5.82 L [facility] IC PRE 2.89(A) 3.67 - 3.67 L [facility] FRC PL PRE 4.33 2.83 - 4.80 L [facility] ERV PRE 0.99(A) 1.23 - 1.23 L [facility] RV PRE 3.34(A) 1.91 - 3.26 L [facility] VTG 4.44 L [facility] RAW PRE 2.43(A) 3.06 - 3.06 cmH2O*s/L [facility] FVC PRE 3.86 3.75 - 6.20 L [facility] FEV1 PRE 2.64(A) 2.80 - 4.69 L [facility] [id number] 68.55 63.91 - 87.26 % [facility] [id number]% PRE 1.66 1.39 - 5.12 L/s [facility] PEF PRE 5.81(A) 6.84 - 10.82 L/s [facility] Anatomical Region Laterality Modality PFT 03/20/2025 11:1 6 AM CDT Narrative 03/20/2025 5:13 PM CDT Spirometry shows moderate obstructive ventilatory defect which resolves with bronchodilators. No significant response to bronchodilators. Flow volume loop is suggestive of obstructive airway disease. Lung volumes show mild air trapping. Gas exchange capacity is moderately reduced. Patient did not require supplemental oxygen on ambulatory oximetry test. 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 * Full Code (Latest Code Status on File) Date Activated Date Inactivated Comments 01/24/2025 9:49 AM 01/24/2025 2:39 PM * Full Code Date Activated Date Inactivated Comments 2024 11:37 AM 03/29/2024 4:34 PM * Full Code Date Activated Date Inactivated Comments 11/17/2021 2:31 PM 11/17/2021 8:17 PM * Full Code Date Activated Date Inactivated Comments 07/29/2021 8:06 PM 07/30/2021 1:05 AM Care Teams Cellophane Bath Mixer Relationship Specialty Start Date End Date Ruthie Toussaint MD [address] [place] [address] PCP - General Family Medicine 06/09/24 Jarred Turner MD [address] [place] [address] Consulting Physician Urology 03/20/19 Jasper Baptiste DO [address] [place] [address] Medical Oncologist/Hematologis t Hematology and Oncology 11/12/20 Aicha Johnson MD [address] [place] [address] Consulting Physician Otolaryngology 07/29/21 Avelino Linares MD [address] [address] Consulting Physician Urology 10/27/24
--- OUTSIDE RECORDS SUMMARY | 2025-06-15 08:36 | XMS_ITS | Encounter Summary ---
Author Organization [facility] Facility Care Team Providers Care Management Retail Intern Name Role Phone Sonja Barrett BrentonKamilah VICENTE Unavailable [phone] Gustavo Carter DO Primary Care Pr ovider Gustavo Carter DO Primary Care Pr ovider Jarred Turner MD Unavailable [phone] Jasper Baptiste DO Unavailable [phone] Aicha Johnson MD Unavailable [phone] Ruthie Toussaint MD Primary Care Provider [phone] Avelino Linares MD Unavailable [phone] Encounter Details Date Type Department Care Team (Latest Contact Info) Description 11/12/2016 Orders Only [facility] CLINCONV ProviderFei MD [address] [place] [address] Social History Tobacco Use Types Packs/Day Years Used Date Smoking Tobacco: Former Sex and Gender Information Value Date Recorded Sex Assigned at Not on file Legal Sex Male 4:45 AM GUEST SERVICES AGENT Gender Identity Not on file Sexual Orientation Not on file documented as of this encounter Plan of Treatment Not on file documented as of this encounter Procedures Procedure Name Priority Date/Time Associated Diagnosis Comments CARDIOLOGY REPORT 11/19/2016 12: 00 AM GUEST SERVICES AGENT CARDIOLOGY REPORT 11/19/2016 12: 00 AM GUEST SERVICES AGENT documented in this encounter Results * CARDIOLOGY REPORT (11/19/2016 12:00 AM GUEST SERVICES AGENT) Anatomical Region Laterality Modality Other Narrative 11/19/2016 12:00 AM GUEST SERVICES AGENT Ordered by an unspecified provider. us Historical Provider CV CARDIAC SERVICES PROCE DURES Final Result * CARDIOLOGY REPORT (11/19/2016 12:00 AM GUEST SERVICES AGENT) Anatomical Region Laterality Modality Other Narrative 11/19/2016 12:00 AM GUEST SERVICES AGENT Ordered by an unspecified provider. Historical Provider CV CARDIAC SERVICES PROCE DURES Final Result documented in this encounter Visit Diagnoses Not on filedocumented in this encounter Care Teams Management Retail Intern Relationship Specialty Start Date End Date Gustavo Carter DO [address] [facility] [address] [place] [address] PCP - General 02/14/18 06/20/18 Gustavo Carter DO [address] [facility] [address] [place] [address] PCP - General Internal Medicine 06/21/18 01/11/24 Ruthie Toussaint MD [address] [place] [address] PCP - General Family Medicine 06/09/24 Sonja Barrett LPN [address] [facility] [address] [place] [address] Intermediate Accountant 01/25/18 01/25/18 Jarred Turner MD [address] [place] [id number] Consulting Physician Urology 03/20/19 Jasper Baptiste DO [facility] [address] Medical Oncologist/Hematologi Hematology and Oncology 11/12/20 Aicha Johnson MD [address] [place] [address] Consulting Physician Otolaryngology 07/29/21 Avelino Linares MD [address] [facility] [address] [place] [address] [address] [place] [address] Consulting Physician Urology 10/27/24 documented as of this encounter
--- OUTSIDE RECORDS SUMMARY | 2025-06-15 08:36 | XMS_ITS | Encounter Summary ---
Author Organization 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 [employer]IC[employer] Gender Identity Not on file Sexual Orientation [...] on filedocumented in this encounter Care Teams Edge Kitter Relationship Specialty Start Date End Date Gustavo Carter DO [address] [facility] [address] [place] [address] PCP - General Internal Medicine 06/21/18 01/11/24 Ruthie Toussaint MD [address] [place] [address] PCP - General Family Medicine 06/09/24 Jarred Turner MD [address] [place] [address] Consulting Physician Urology 03/20/19 Jasper Baptiste DO [address] [place] [address] [address] [place] [address] Medical Oncologist/Hematologi Hematology and Oncology 11/12/20 Aicha Johnson MD [address] [place] [address] Consulting Physician Otolaryngology 07/29/21 Avelino Linares MD [address] [facility] [address] [place], [place] [id number] Consulting Physician Urology 10/27/24 documented as of this encounter
--- OUTSIDE RECORDS SUMMARY | 2025-06-15 08:36 | XMS_ITS | Encounter Summary ---
Author Organization [facility] Facility Care Team Providers Care Animal Nutrition Consultant Name Role Phone Sonja Barrett BrentonKamilah VICENTE Unavailable [phone] Gustavo Carter DO Primary Care Pr ovider Gustavo Carter DO Primary Care Pr ovider Jarred Turner MD Unavailable [phone] Jasper Baptiste DO Unavailable [phone] Aicha Johnson MD Unavailable [phone] Ruthie Toussaint MD Primary Care Provider [phone] Avelino Linares MD Unavailable [phone] Encounter Details Date Type Department Care Team (Latest Contact Info) Description 10/12/2016 Orders Only [facility] CLINCONV ProviderFei MD [address] [place] [address] Social History Tobacco Use Types Packs/Day Years Used Date Smoking Tobacco: Former Sex and Gender Information Value Date Recorded Sex Assigned at Not on file Legal Sex Male 4:45 AM HOSPITAL RECEPTIONIST Gender Identity Not on file Sexual Orientation Not on file documented as of this encounter Plan of Treatment Not on file documented as of this encounter Procedures Procedure Name Priority Date/Time Associated Diagnosis Comments SCAN - LABS 10/29/2016 12:00 AM HOSPITAL RECEPTIONIST documented in this encounter Results * SCAN - LABS (10/29/2016 12:00 AM HOSPITAL RECEPTIONIST) Narrative 10/29/2016 12:00 AM HOSPITAL RECEPTIONIST Ordered by an unspecified provider. us Historical Provider Final Res ult documented in this encounter Visit Diagnoses Not on filedocumented in this encounter Care Teams Animal Nutrition Consultant Relationship Specialty Start Date End Date Gustavo Carter DO [address] [facility] [address] [place] [address] PCP - General 02/14/18 06/20/18 Gustavo Carter DO [address] [facility] [address] [place] [address] PCP - General Internal Medicine 06/21/18 01/11/24 Ruthie Toussaint MD [address] [place] [address] PCP - General Family Medicine 06/09/24 Sonja Barrett LPN [address] [facility] [address] [place] [address] Pulmonary Nurse Practitioner 01/25/18 01/25/18 Jarred Turner MD [address] [place] [address] Consulting Physician Urology 03/20/19 Jasper Baptiste DO [address] [place] [address] Medical Oncologist/Hematologi Hematology and Oncology 11/12/20 Aicha Johnson MD [address] [place] [address] Consulting Physician Otolaryngology 07/29/21 Avelino Linares MD [address] [email or web address] [address] [place] [address] Consulting Physician Urology 10/27/24 documented as of this encounter
[2025-06-15 08:59] LABS: Hematocrit 37.3 % (42.0-52.0); Hemoglobin 12.1 g/dL (14.0-18.0)
[2025-06-15 09:12] LABS: INR 1.1; Prothrombin Time 14.5 Seconds (11.1-14.7)
[2025-06-15 09:13] LABS: Partial Thromboplastin Time 30.7 Seconds (22.3-36.8)
[2025-06-15 09:19] LABS: Anion Gap 7 mmol/L (4-12); Blood Urea Nitrogen 11 mg/dL (9-20); Calcium 9.4 mg/dL (8.4-10.2); Carbon Dioxide 27 mmol/L (22-30); Chloride 105 mmol/L (98-107); Estimated Glomerular Filt Rate > 60; Glucose 79 mg/dL (65-110); Potassium 4.4 mmol/L (3.4-5.0); Sodium 139 mmol/L (137-145)
== END 2025-06-15 08:24 | disposition home or self-care (01) ==
LOC: ANHSURGERY 08:28
PROVIDERS: Anesthesiology; PCP Family Medicine; Visit Provider Urology
DX: I78.0 Hereditary hemorrhagic telangiectasia (principal)
CPT/HCPCS: 36415; 80048; 85014; 85018; 85610; 85730

== ENCOUNTER 2025-06-21 00:10 | Day surgery (SDC) | payer MEDICARE, MEDICAID, SELFPAY ==
--- NOTE | 2025-06-13 12:44 | PC.NURSE ---
Report to the Outpatient Waiting Room, entrance under the green pavilion located off [facility], at time _1000_ on date _[id number]_. Planned Procedure Time: _1200_.? Time changes happen often and if your time is changed the preop area will call you the afternoon before. - You and your visitor will be asked to self-screen and do not enter if you have any COVID symptoms. Please call surgeon if you need to reschedule. - A mask is optional within the hospital at this time. Patients may have clear liquids (water, carbonated beverages, clear teas, apple juice) until 3 hours prior to surgery with a maximum of 20 ounces. - No food from midnight until time of surgery and no smoking, or chewing tobacco (or any form of nicotine). No chewing gum, candy or mints. Take only the following medications with a SIP of water on the morning of surgery: __Isosorbide, Metoprolol, Paroxetine and Morphine.___ DO NOT STOP ANY OF YOUR OTHER PRESCRIPTION MEDICATIONS PRIOR TO SURGERY EXCEPT THE FOLLOWING Hold all vitamins and supplements for 3 days per anesthesiologist. Patient says office told him to hold these for 7 days. Medications to discontinue per physician Date to take last dose Please no make-up, nail cambodian, hairspray, perfume, deodorant, or body powder the day of surgery.? No jewelry (including any body piercings) or valuables the day of surgery, leave them at home.? Please take a shower or bath the night before, or the morning of, surgery with an antibacterial soap.? Wear comfortable, loose fitting clothing.? - Jewelry must be removed prior to entering the operating room.? Rings and piercings that are not removed may be cut off. - The hospital will not accept responsibility for valuables.? - Please leave all valuables, including medications, at home the day of surgery. If you are going home after surgery, a licensed interstate bus driver must drive you home.? - NO public transportation without another adult if you receive anesthesia. - We recommend that an adult stay with you for 24 hours following discharge. - We also recommend that you do not drive, make important decision, drink alcoholic beverages, or take any drugs that were not prescribed by your health care provider for at least 24 hours after your discharge time. Follow any additional instructions given to you from your surgeon. Telephone instructions given to ___Sebastian__and asked if any additional questions and then verbalized understanding. Patient advised to call surgeon office or pre surgery nurse liaison [phone] if any additional questions.
[2025-06-13 12:45] VITALS: BMI 20.4
[2025-06-21] VITALS (11 sets, daily range): BP systolic 134–165; BP diastolic 73–100; PULSE 69–95; RESP 12–17; TEMP 36.4–36.6; O2SAT 95–100; BMI 19.8
--- NOTE | 2025-06-21 05:55 | WPDHPUPDATE1 ---
History and Physical Update Update Date/Time: 06/21/25 05:55 History and Physical has been reviewed, including an updated exam of the patient. There are NO changes in the patient's condition. Risks, benefits, and alternatives have been discussed and questions answered. Patient agrees to proceed with procedure.
[2025-06-21] MEDS: LACTATED RINGERS 1,000 ML 30 ML IV CONT ×2 (09:40→12:00)
--- NOTE | 2025-06-21 11:01 | WPDANESEPPF ---
Anes - Initial Pre Proc Eval Procedure: Operation Date: 06/21/25 11:30 Proposed Procedures p Cystoscopy, Optical Internal Urethrotomy - Avelino Linares MD Date/Time: 06/21/25 11:01 Surgeon: Avelino Linares MD Pre Op Diagnosis: bulbous urethral stricture Patient Data Age: 65 Gender: M Height: 1.83 m Weight: 66.4 kg Last Vital Signs Temp 97.8 F 06/21/25 09:20 Pulse 70 06/21/25 09:20 Resp 14 06/21/25 09:20 BP 141/84 H 06/21/25 09:20 Pulse Ox 99 06/21/25 09:20 O2 Del Method Room Air 06/21/25 09:20 Allergies Allergy/AdvReac Type Severity Reaction Status Date / Time amoxicillin Allergy Itching Verified 06/21/25 09:42 Home Medications ?Medication ?Instructions ?Recorded ?Confirmed ?Type albuterol sulfate 2.5 mg/3 mL 2.5 mg inhalation PRN PRN 01/18/23 06/13/25 History (0.083 %) solution for nebulization Shortness Of Breath atorvastatin 20 mg tablet 20 mg PO DAILY 01/18/23 06/21/25 History ferrous gluconate 324 mg (38 mg 324 mg PO DAILY 01/18/23 06/21/25 History iron) tablet finasteride 5 mg tablet 5 mg PO DAILY 01/18/23 06/21/25 History gabapentin 300 mg capsule 600 mg PO HS 01/18/23 06/13/25 History isosorbide mononitrate 60 mg 60 mg PO DAILY 01/18/23 06/21/25 History tablet,extended release 24 hr lactulose 10 gram/15 mL oral 15 ml PO HS 01/18/23 06/13/25 History solution morphine 60 mg tablet,extended 60 mg PO TID 01/18/23 06/21/25 History release nitroglycerin 0.4 mg sublingual 5 mg sublingual PRN 01/18/23 06/13/25 History tablet omeprazole 40 mg capsule,delayed 40 mg PO DAILY 01/18/23 06/21/25 History release paroxetine HCl 20 mg tablet 20 mg PO QAM 01/18/23 06/13/25 History sumatriptan succinate 100 mg tablet 100 mg PO PRN PRN Migraine Headache 01/18/23 06/13/25 History tamsulosin 0.4 mg capsule 0.4 mg PO DAILY 01/18/23 06/13/25 History cyanocobalamin (vitamin B-12) 1,000 mcg PO QAM #90 tabs 01/20/23 06/21/25 Rx 1,000 mcg tablet (Vitamin B-12) metoprolol tartrate 100 mg tablet 100 mg PO Q12H 30 days #60 tabs 01/20/23 06/21/25 Rx ascorbic acid (vitamin C) 1,000 mg 1 g PO DAILY 06/13/25 06/21/25 History tablet (C-1000) multivitamin-ferrous 1 tablet PO DAILY 06/13/25 06/21/25 History fumarate-folic acid 18 mg-400 mcg tablet (Centrum) Patient hx anesthesia problems: none Family hx anesthesia problems: none Results Review: All pre-operative results and documents have been reviewed as part of the pre-operative evaluation. [facility] Past Medical History Medical History B12 deficiency anemia Chronic GERD COPD (chronic obstructive pulmonary disease) History of blood transfusion Anemia CAD (coronary artery disease) Aortic aneurysm Hereditary hemorrhagic telangiectasia Migraine Hyperlipidemia Anxiety disorder Chronic cystitis with hematuria Chronic abdominal pain BPH (benign prostatic hyperplasia) Hypertension Pulmonary artery hypertension History of pulmonary embolism DVT (deep venous thrombosis) Surgical History Surgical History H/O of nasal cauterization H/O colonoscopy H/O sinus surgery X3 History of cardiac catheterization X4 S/P IVC filter Family History Family History Mother Cancer Son Hereditary hemorrhagic telangiectasia Social History Social History Social History: The patient continues to smoke a half a pack a cigarettes a day. 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 Between him and his they have 7 children of which 3 are biological to him. Code status full code Smoking packs per day: 0.5 Smoking cigarettes per day: 10.0 Years smoked: 30 Smoking pack-years: 15.00 Smoking status: Current every day smoker Tobacco type: cigarettes Alcohol intake: never Substance use: current Substance use type: marijuana Other substance usage details: Medical marijuana Lack of Transportation: No Lack of Food: Never True Current Housing: I Have Housing Concerned About Future Housing: No Difficulty Paying Gas/Electric Bills: No Difficulty Paying for Meds: No Currently Unemployed: No Education: Don't Know Difficulty w/ Childcare or Family Care: No Living arrangements: with family Spiritual care concerns: No Anes - Eval Final PreProcedure Day of Procedure 06/21/25 11:01 Patient weight: thin Lungs: normal air movement Airway: Mallampati scale class II and special considerations (Edentulous. ) Neurological: alert and oriented Last oral intake: >/= 8 hours ASA classification: IV Emergent: no Anesthetic plan: proceed Anesthesia type and monitoring: general LMA and standard monitoring Results Review: All pre-operative results and documents have been reviewed as part of the pre-operative evaluation. HTN, hyperlipidemia, hx of afib, now s/p watchman, COPD and smokes 1/2 ppd, smoked this am. Informed Consent: The patient's anesthetic plan and its attendant risks and benefits were discussed with the patient/family/POA. Questions were solicited and answers provided to the satisfaction of the patient/family/POA.
[2025-06-21] MEDS: ceFAZolin 2 GM in SODIUM CHLORIDE 0.9% IV 50 ML 100 ML IVPB (11:06)
[2025-06-21] MEDS: LIDOCAINE 2% GEL UROJET 10 ML PKG MUCOUS MEM (11:16)
--- NOTE | 2025-06-21 11:35 | W.PM.PROC2 ---
Procedure Note - Detailed Date of Procedure 06/21/25 Pre-op Diagnosis Recurrent bulbous urethral stricture Post-op Diagnosis Same Procedure Performed Optical internal urethrotomy Surgeon Avelino Linares MD Anesthesia General Description of Procedure The patient was brought to the operative suite where he was prepped and draped in a routine sterile fashion while in a dorsal lithotomy position after the uneventful administration of systemic sedation by the anesthesia department. 2% Lidocaine was placed in the urethra and allowed to stand for an appropriate period of time. Cystoscopy was undertaken with a 19F rigid cystoscope. He has a moderately constricting recurrent stricture of the bulbous urethra. The bladder itself was endoscopically normal without foreign body or neoplasm. The bladder mucosa was without hyperemia. There was a single orthotopic ureteral orifice bilaterally with clear reflex of urine. Using the optical urethrotome, I incised the strictured urethra at the 12 o'clock position care taken to avoid injury to the membranous urethra. An 18F Sterling catheter was placed, the bladder was emptied and the patient was taken to the recovery room in good condition. Drains No Pathology None sent Complications No immediate complications
[2025-06-21] MEDS: fentaNYL CITRATE INJ (*CRX) 100 MCG/2 ML VIAL 25 MCG IV PUSH ×2 (11:49→11:55)
== END 2025-06-21 14:31 | disposition home or self-care (01) ==
PROVIDERS: PCP Family Medicine; Visit Provider Urology
PROC: (CPT 52275; principal; 2025-06-21 11:30)
DX: N35.812 Other bulbous urethral stricture, male (principal); I78.0 Hereditary hemorrhagic telangiectasia; E78.5 Hyperlipidemia, unspecified; I10 Essential (primary) hypertension; K21.9 Gastro-esophageal reflux disease without esophagitis; J44.9 Chronic obstructive pulmonary disease, unspecified; D64.9 Anemia, unspecified; I25.10 Atherosclerotic heart disease of native coronary artery without angina pectoris; E53.8 Deficiency of other specified B group vitamins; F41.9 Anxiety disorder, unspecified; I48.91 Unspecified atrial fibrillation; N30.21 Other chronic cystitis with hematuria; G89.29 Other chronic pain; R10.9 Unspecified abdominal pain; I27.21 Secondary pulmonary arterial hypertension; F17.210 Nicotine dependence, cigarettes, uncomplicated; F12.90 Cannabis use, unspecified, uncomplicated; Z79.51 Long term (current) use of inhaled steroids; Z79.891 Long term (current) use of opiate analgesic; Z98.890 Other specified postprocedural states; Z98.61 Coronary angioplasty status; Z86.711 Personal history of pulmonary embolism; Z86.718 Personal history of other venous thrombosis and embolism; Z80.3 Family history of malignant neoplasm of breast; Z82.49 Family history of ischemic heart disease and other diseases of the circulatory system
CPT/HCPCS: 52275; J0690; J2003; J2250; J2405; J2704; J3010; J7120